=== PATIENT | female | born 1950 | race Caucasian/White ===

== ENCOUNTER 2020-05-05 15:44 | Outpatient (CLI) | payer MEDICARE, OTHER, SELFPAY ==
--- NOTE | ~2020-05-05 | XR_ITS ---
EXAMINATION: XR abdomen obstructive series DATE: 05/05/2020 16:29 INDICATION: Abdomen pain. TECHNIQUE: Supine and upright views of the abdomen. FINDINGS: No prior studies for comparison. The visualized lung parenchyma is normal.. There is a nonobstructive bowel gas pattern. Gas and stool are seen throughout the colon to the level of the rectum. There is no free air. There are cholecyst ectomy clips. IMPRESSION: 1. No acute abdominal abnormality. Reviewed, dictated and finalized at location B.
[2020-05-05 16:54] LABS: Basophils Absolute Auto 0.2 K/mm3 (0.0-0.1); Basophils Percent Auto 1.3 % (0.2-1.2); Eosinophils Absolute Auto 0.3 K/mm3 (0-0.3); Eosinophils Percent Auto 2.7 % (0-4.4); Hematocrit 46.1 % (37.0-47.0); Hemoglobin 15.3 g/dL (12.0-15.0); Immature Granulocyte Absolute 0.04 K/mm3 (0.00-0.031); Immature Granulocyte Percent A 0.4 % (0-0.5); Lymphocytes Absolute Auto 3.34 K/mm3 (0.9-3.2); Lymphocytes Percent Auto 29.4 % (18.3-44.2); Mean Corpuscular HGB Conc 33.2 g/dl (32-36); Mean Corpuscular Hemoglobin 29.8 pg (26-34); Mean Corpuscular Volume 89.7 fl (80-100); Mean Platelet Volume 9.3 fl (7.4-10.4); Monocytes Absolute Auto 0.8 K/mm3 (0.1-0.6); Monocytes Percent Auto 6.9 % (2.6-8.5); Neutrophils Absolute Auto 6.7 K/mm3 (1.3-6.7); Neutrophils Percent Auto 59.3 % (45.5-73.1); Platelet Count Result 282 k/mm3 (150-375); Red Blood Count 5.14 M/mm3 (4.2-5.4); Red Cell Distribution Width 13.5 % (11.5-14.5); White Blood Count 11.4 K/mm3 (4.5-10.0)
[2020-05-05 17:06] LABS: Alanine Aminotransferase 27 U/L (4-35); Albumin Level 4.7 g/dL (3.5-5.1); Alkaline Phosphatase 55 U/L (38-126); Anion Gap 8 mmol/L (8-16); Aspartate Amino Transferase 28 U/L (14-36); Bilirubin,Total 0.4 mg/dL (0.2-1.3); Blood Urea Nitrogen 14 mg/dL (7-17); Calcium 9.6 mg/dL (8.4-10.2); Carbon Dioxide 29 mmol/L (22-30); Chloride 103 mmol/L (98-107); Cholesterol 137 mg/dL (0-200); Estimated Glomerular Filt Rate > 60; Glucose 105 mg/dL (65-105); HDL Direct 49 mg/dL; Potassium 4.3 mmol/L (3.4-5.0); Sodium 140 mmol/L (137-145); Triglycerides 172 mg/dL (<150)
[2020-05-05 17:17] LABS: LDL Cholesterol Direct 53 mg/dL
== END 2020-05-05 15:45 | disposition home or self-care (01) ==
DX: R10.84 Generalized abdominal pain (principal); E78.2 Mixed hyperlipidemia
CPT/HCPCS: 36415; 74019; 80053; 80061; 85025

== ENCOUNTER 2020-05-08 09:36 | Outpatient (CLI) | payer MEDICARE, OTHER, SELFPAY ==
--- NOTE | ~2020-05-08 | CT_ITS ---
EXAMINATION: CT lung screening DATE: 05/08/2020 10:02 INDICATION: History of tobacco use TECHNIQUE: Computed tomography (CT) of the chest was performed without intravenous contrast. The dose -length product was 99.00 mGy-cm. Automated exposure control and iterative reconstruction technique w ere employed. COMPARISON: CT dated 02/05/2011 FINDINGS: No significant pleural or pericardial effusion. Heart size is normal. There is atherosclero sis of the aorta and coronary arteries. No thoracic lymphadenopathy. In the upper abdomen is unremark able. There are cholecystectomy clips. There is a 4 mm right upper lobe nodule, image 38. There are l eft lower lobe nodules, largest measuring 5 mm. Mild thoracic spondylosis. IMPRESSION: 1. Lung-RADS category 2: Benign appearance or behavior. Continue annual screening with noncontrast lo w-dose chest CT in 12 months. Reviewed, dictated and finalized at location B. IMPRESSION: 1. Lung-RADS category 2: Benign appearance or behavior. Continue annual screeni ng with noncontrast low-dose chest CT in 12 months.
== END 2020-05-08 09:37 | disposition home or self-care (01) ==
DX: Z87.891 Personal history of nicotine dependence (principal)
CPT/HCPCS: G0297

== ENCOUNTER 2020-05-30 10:47 | Outpatient (CLI) | payer MEDICARE, OTHER, SELFPAY ==
--- NOTE | ~2020-05-30 | XR_ITS ---
XR lumbar spine 2-3V DATE: 05/30/2020 11:19 INDICATION: Strain] of back 10 days ago. Back pain. TECHNIQUE: AP, lateral, coned lateral lumbosacral views COMPARISON: None FINDINGS: Diffuse osteopenia. There is degenerative spurring of the lower thoracic spine. No fracture or bone destruction or spondylolisthesis. There is mild loss of interspace height at L1-2 and L4-5, with minimal spurring at L1 to. Remaining l umbar interspaces are well preserved. There is degenerative change at the apophyseal joints particula rly in the lower lumbar and lumbosacral area but no spondylolisthesis. The sacroiliac joints and pubic symphysis are intact. There is extensive calcification of the abdominal aorta and common iliac arteries without apparent an eurysm. IMPRESSION: Moderate osteopenia Degenerative changes including mild degenerative disc disease at L1-2 and L4 5 and degenerative mcconnell e at the apophyseal joints Reviewed, dictated and finalized at location A. IMPRESSION: Moderate osteopenia Degenerative changes including mild degenerative disc disease at L1-2 and L4 5 and degenerative change at the apophyseal joints
== END 2020-05-30 10:48 | disposition home or self-care (01) ==
LOC: ANHIMG 10:58
DX: M51.36 Other intervertebral disc degeneration, lumbar region (principal); M85.88 Other specified disorders of bone density and structure, other site
CPT/HCPCS: 72100

== ENCOUNTER 2020-06-04 09:24 | Outpatient (CLI) | payer MEDICARE, OTHER, SELFPAY ==
--- NOTE | ~2020-06-04 | MM_ITS ---
EXAMINATION: MM screening radha BI w lien HISTORY: Screening TECHNIQUE: Craniocaudal and mediolateral oblique 3-D tomosynthesis images were obtained and synthetic 2-D images were generated. CAD analysis was submitted and interpreted. COMPARISON: Comparison to multiple prior studies sequentially, with oldest reviewed study dated 03/04/2016. BREAST PARENCHYMAL COMPOSITION: There are scattered areas of fibroglandular density. FINDINGS: Bilateral breast calcifications are stable. There is no evidence of suspicious mass, calcif ication, or architectural distortion to suggest malignancy in either breast. There has been no suspic ious interval change. IMPRESSION: 1. No mammographic evidence of malignancy. 2. Recommend routine screening mammography in one year. BI-RADS Category 2: Benign finding(s). Reviewed, dictated and finalized at location A.
== END 2020-06-04 09:25 | disposition home or self-care (01) ==
LOC: ANHIMG 09:27
DX: Z12.31 Encounter for screening mammogram for malignant neoplasm of breast (principal)
CPT/HCPCS: 77063; 77067

== ENCOUNTER 2020-06-06 11:49 | Outpatient (CLI) | payer MEDICARE, OTHER, SELFPAY ==
--- NOTE | ~2020-06-06 | CT_ITS ---
EXAMINATION: CT abdomen pelvis w con INDICATION: Abdominal hernia TECHNIQUE: Computed tomographic images of the abdomen and pelvis were obtained after the administrati on of 100 cc of Omnipaque 350 intravenous contrast. The dose-length product (DLP) was 609.31 mGy-cm. Automated exposure control and iterative reconstruction technique were employed. COMPARISON: 01/13/2019 FINDINGS: Minimal dependent atelectasis is present in the lung bases. Cardiomegaly is noted. A stable 4 mm nodule of the left lower lobe is consistent with old granulomatous disease. The gallbladder is surgically absent. Cysts of the liver measure up to 5 mm. The spleen, pancreas, and adrenal glands ar e normal. The kidneys are unremarkable. There is calcified atherosclerosis of the aorta and many of t he other arteries. No pathologically enlarged abdominal or pelvic lymph nodes are identified. There i s no free intraperitoneal gas or evidence of bowel obstruction. The appendix is normal. Colonic diver ticulosis is present without evidence of diverticulitis. There is a small fat-containing umbilical he rnia. There are small fat-containing inguinal hernias. No additional abdominal wall hernia is identif ied. There is mild lumbar spondylosis. An L5 superior endplate deformity is new since the comparison examination. IMPRESSION: 1. Fat-containing umbilical and inguinal hernias without significant change. No sizable ventral herni a identified. 2. Age-indeterminate L5 superior endplate fracture, new since the comparison examination. Reviewed, dictated and finalized at location A. IMPRESSION: 1. Fat-containing umbilical and inguinal hernias without significant change. No sizable ventral hernia identified. 2. Age-indeterminate L5 superior endplate fracture, new since the comparison ex amination.
[2020-06-06 12:13] LABS: Estimated Glomerular Filt Rate 55
== END 2020-06-06 11:50 | disposition home or self-care (01) ==
DX: K40.90 Unilateral inguinal hernia, without obstruction or gangrene, not specified as recurrent (principal); K42.9 Umbilical hernia without obstruction or gangrene
CPT/HCPCS: 74177; Q9967

== ENCOUNTER 2020-10-24 14:35 | Outpatient (CLI) | payer MEDICARE, OTHER, SELFPAY ==
--- NOTE | ~2020-10-24 | CT_ITS ---
EXAMINATION: CT soft tissue neck w con EXAM DATE: 10/24/2020 15:23 INDICATION: Submandibular lymphadenopathy, chronic periodental disease. TECHNIQUE: Spiral CT of the neck was performed following intravenous injection of 75 mL Omnipaque 350 . Axial, coronal and sagittal images were reviewed. The dose-length product (DLP) for this examinat ion was 556.00 mGy-cm. The exposure was tailored according to patient size (auto mA exposure control ), and iterative reconstruction (ASIR) was used as additional dose reduction technique. There is no prior study for comparison. FINDINGS: There is an externally placed marker right anterior aspect of the neck, submandibular regio n. The subcutaneous fat deep to this is normal. Scattered small thyroid nodules, thyroid overall nor mal in size. There is moderate left carotid bulb arterial sclerosis without significant stenosis. Tor tuosity to both internal carotid arteries. The submandibular and parotid glands are symmetric. The re is no cervical lymphadenopathy. There are no masses identified. The superior mediastinum is un remarkable. The airway is unremarkable. Parapharyngeal and pre-glottic fat planes are preserved. Patient has had bilateral ocular lens surgery. Visualized sinuses and mastoid air cells are well aerated. Lung apices are clear. There is cervical spondylosis. IMPRESSION: 1. No cervical lymphadenopathy. 2. Small thyroid nodules. Reviewed, dictated and finalized at location A. [facility]
[2020-10-24 15:10] LABS: Alanine Aminotransferase 24 U/L (4-35); Albumin Level 4.6 g/dL (3.5-5.1); Alkaline Phosphatase 53 U/L (38-126); Anion Gap 8 mmol/L (8-16); Aspartate Amino Transferase 25 U/L (14-36); Bilirubin,Total 0.5 mg/dL (0.2-1.3); Blood Urea Nitrogen 14 mg/dL (7-17); Calcium 9.2 mg/dL (8.4-10.2); Carbon Dioxide 28 mmol/L (22-30); Chloride 104 mmol/L (98-107); Estimated Glomerular Filt Rate > 60; Glucose 92 mg/dL (65-105); Potassium 4.1 mmol/L (3.4-5.0); Sodium 140 mmol/L (137-145)
[2020-10-24 15:12] LABS: Estimated Glomerular Filt Rate > 60
== END 2020-10-24 14:36 | disposition home or self-care (01) ==
LOC: ANHIMG 14:36
DX: R59.0 Localized enlarged lymph nodes (principal); K05.6 Periodontal disease, unspecified; E04.2 Nontoxic multinodular goiter
CPT/HCPCS: 36415; 70491; 80053; Q9967

== ENCOUNTER 2021-05-04 13:26 | Outpatient (CLI) | payer MEDICARE, OTHER, SELFPAY ==
--- NOTE | ~2021-05-04 | CT_ITS ---
Patient Erma Zayas EXAMINATION: CT lung screening DATE: 05/04/2021 13:57 INDICATION: Personal history of nicotine dependence, prior smoker with 40 pack year history TECHNIQUE: Computed tomography (CT) of the chest was performed without intravenous contrast. The dose -length product (DLP) was 76.11 mGy-cm. Automated exposure control and iterative reconstruction techn Prepairue were employed. COMPARISON: 05/08/2020, 01/13/2019, 11/05/2018, 06/08/2011 FINDINGS: A 6 mm nodule left lower lobe on image 93 previously measured 5 mm. There is a stable 4 mm nodule of the left lower lobe on image 92. There is stable 5 mm nodule of the left lower lobe on imag e 80. There is mild emphysema. The lungs are free of focal airspace opacities. There is mild dependen t atelectasis. No pleural effusion or pneumothorax is identified. No pathologically enlarged thoracic lymph nodes are identified. The heart size is normal. Calcified coronary artery atherosclerosis is n oted. The gallbladder is surgically absent. There is moderate thoracic spondylosis. IMPRESSION: 1. Lung-RADS category 4A: Findings for which additional diagnostic testing and/or tissue sampling is recommended. Recommend three month low-dose CT to evaluate the 6 mm left lower lobe nodule. Reviewed, dictated and finalized at location A. IMPRESSION: 1. Lung-RADS category 4A: Findings for which additional diagnostic testing and/ or tissue sampling is recommended. Recommend three month low-dose CT to evaluat e the 6 mm left lower lobe nodule.
== END 2021-05-04 13:27 | disposition home or self-care (01) ==
LOC: ANHIMG 13:28
PROVIDERS: PCP Nurse Practitioner; Visit Provider Nurse Practitioner
DX: R91.1 Solitary pulmonary nodule (principal); F17.210 Nicotine dependence, cigarettes, uncomplicated
CPT/HCPCS: 71271

== ENCOUNTER 2021-07-07 08:59 | Outpatient (CLI) | payer MEDICARE, OTHER, SELFPAY ==
--- NOTE | ~2021-07-07 | DEXA_ITS ---
Bone Density Report Name: Erma Zayas Age: 70 Sex: Female Ethnicity: White Date of : 1950 Indication: osteopenia; height loss; prior fracture; cancer; hysterectomy; postmenopausal Referring Provider: Ze, Melissa Nevarez Study: Bone densitometry was performed. Exam Date: July 07, 2021 Accession number: [id number] Bone Density: Region BMD T-score Z-score Classification AP Spine (L2, L3, L4) 0.900 -1.6 0.7 Osteopenia Femoral Neck (Left) 0.633 -1.9 0.0 Osteopenia Total Hip (Left) 0.765 -1.4 0.2 Osteopenia Total Hip Bilateral Avg 0.777 -1.4 0.3 Osteopenia Femoral Neck (Right) 0.681 -1.5 0.4 Osteopenia Total Hip (Right) 0.789 -1.3 0.4 Osteopenia World Health Organization criteria for BMD impression classify patients as: Normal (T-score at or above -1.0), Osteopenia (T-score between -1.0 and -2.5), or Osteoporosis (T-score at or below -2.5). 10-year Fracture Risk(1): Major Osteoporotic Fracture 18% Hip Fracture 3.5% Reported Risk Factors: [place] (), Neck BMD=0.633, BMI=29.1, previous fracture (1) FRAX(R) Version 3.08. Fracture probability calculated for an untreated patient. Fracture probability may be lower if the patient has received treatment. Previous Exams: Region Exam Age BMD T-score BMD Change BMD Change Date g/cm2 vs Baseline vs Previous AP Spine(L2, L3, L4) 07/07/2021 70 0.900 -1.6 -0.093(-9.3%)# -0.047(-5.0%)* 09/17/2016 66 0.947 -1.2 -0.045(-4.5%)# -0.098(-9.3%)# 11/13/2009 59 1.045 -0.3 0.053(5.3%)* -0.028(-2.6%)* 09/07/2007 57 1.073 -0.1 0.081(8.1%)* 0.081(8.1%)* 10/21/2003 53 0.993 -0.8 Total Hip(Left) 07/07/2021 70 0.765 -1.4 0.000(0.0%)# -0.065(-7.9%)* 12/19/2018 68 0.831 -0.9 0.065(8.5%)# 0.000(0.1%) 09/17/2016 66 0.830 -0.9 0.065(8.5%)# 0.014(1.7%)# 11/13/2009 59 0.816 -1.0 0.051(6.6%)* 0.000(0.0%) 09/07/2007 57 0.816 -1.0 0.051(6.6%)* 0.051(6.6%)* 10/21/2003 53 0.765 -1.4 Total Hip(Right) 07/07/2021 70 0.789 -1.3 0.014(1.8%)# -0.061(-7.2%)* 12/19/2018 68 0.849 -0.8 0.075(9.7%)# -0.018(-2.1%) 09/17/2016 66 0.867 -0.6 0.093(12.0%)# 0.014(1.7%)# 11/13/2009 59 0.853 -0.7 0.079(10.2%)* 0.013(1.6%) 09/07/2007 57 0.840 -0.8 0.066(8.5%)* 0.066(8.5%)* 10/21/2003 53 0.774 -1.4 *Denotes significance at 95% confidence level, LSC for AP Spine = 0.022 g/cm2, LSC for Total Hip = 0.027 g/cm2 Clinical Information Provided by Patient:
== END 2021-07-07 09:00 | disposition home or self-care (01) ==
LOC: ANHIMG 09:02
PROVIDERS: PCP Nurse Practitioner; Visit Provider Nurse Practitioner
DX: Z78.0 Asymptomatic menopausal state (principal); M85.88 Other specified disorders of bone density and structure, other site; M85.852 Other specified disorders of bone density and structure, left thigh; M85.851 Other specified disorders of bone density and structure, right thigh
CPT/HCPCS: 77080

== ENCOUNTER 2021-10-21 14:53 | Outpatient (CLI) | payer MEDICARE, OTHER, SELFPAY ==
--- NOTE | ~2021-10-21 | XR_ITS ---
XR knee LT 3V, XR tibia fibula LT 2V 10/21/2021 15:57 (accession [id number]), 10/21/2021 15:56 (accession [id number]) Indication: Left knee and leg pain Procedure: 3 views left knee and 2 views left tibia/fibula Comparison: No prior studies for comparison. Findings: No fracture, subluxation or dislocation. There is mild osteoarthritis of the left knee. No significant soft tissue abnormality. No significant joint effusion. Impression: 1: Mild osteoarthritis of the left knee. Reviewed, dictated and finalized at location A. ROOM PERSONNEL Impression: 1: Mild osteoarthritis of the left knee. Impression: 1: Mild osteoarthritis of the left knee.
--- NOTE | ~2021-10-21 | XR_ITS ---
XR knee RT 3V, XR tibia fibula RT 2V 10/21/2021 15:55 Indication: Right knee and leg pain Procedure: 3 views right knee and 2 views right tibia/fibula Comparison: No prior studies for comparison. Findings: No fracture, subluxation or dislocation. No significant joint effusion. No significant soft tissue abnormality. No foreign bodies. Mild osteoarthritis of the right knee. Impression: 1: Mild osteoarthritis of the right knee. Reviewed, dictated and finalized at location A. ARCH COORDINATOR Impression: 1: Mild osteoarthritis of the right knee. Impression: 1: Mild osteoarthritis of the right knee.
--- NOTE | ~2021-10-21 | US_ITS ---
US soft tissue LE LT 10/21/2021 15:24 Indication: Localized swelling of the left lower extremity below the knee Procedure: High-resolution Limited ultrasound of the left lower extremity in the area of palpable con cern Comparison: No prior studies for comparison. Findings: There is echogenic heterogeneous soft tissue in the area of clinical concern, although no d iscrete fluid collection or mass is identified. There is mild interstitial edema. Impression: 1: No suspicious discrete masses or fluid collections in the area of palpable concern. No drainable f luid collections. Reviewed, dictated and finalized at location A. KNITTER Impression: 1: No suspicious discrete masses or fluid collections in the area of palpable c oncern. No drainable fluid collections.
== END 2021-10-21 14:54 | disposition home or self-care (01) ==
LOC: ANHIMG 14:58
PROVIDERS: PCP Nurse Practitioner; Visit Provider Nurse Practitioner
DX: M17.0 Bilateral primary osteoarthritis of knee (principal)
CPT/HCPCS: 73562; 73590; 76882

== ENCOUNTER 2022-06-12 17:06 | Emergency (ER) | payer MEDICARE, OTHER, SELFPAY ==
--- NOTE | ~2022-06-12 | CT_ITS ---
EXAMINATION: CT abdomen pelvis w con DATE: 06/12/2022 18:17 INDICATION: Lower abdominal pain and constipation. TECHNIQUE: Computed tomography (CT) of the abdomen and pelvis was performed with 100 mL Omnipaque-350 intravenous contrast. Automated exposure control and iterative reconstruction technique were employe d. The dose-length product was 770.80 mGy-cm. COMPARISON: 06/06/2020 FINDINGS: Mild bibasilar atelectasis. Heart size is normal. Atherosclerotic coronary artery calcific lesions. N o pericardial or pleural effusion. Small sliding-type hiatal hernia. Cholecystectomy clips the gallbl adder fossa. Liver, spleen, pancreas, bilateral adrenal glands and right kidney are normal. Left para pelvic cysts measuring up to 1.8 cm. Multiple diverticula predominantly along the sigmoid colon. Ther e is wall thickening, inflammatory stranding surrounding the mid sigmoid colon and trace amount of li chata reactive ascites in the deep pelvis consistent with diverticulitis. No abscess or free intraperi toneal gas. Small bowel and appendix are normal. Bladder is normal. The uterus is not identified and has likely been surgically resected. No pathologically enlarged abdominal or pelvic lymphadenopathy. There is calcified atherosclerosis of the aorta and many of the other arteries. There are bridging os teophytes at multiple levels in the spine, consistent with diffuse idiopathic skeletal hyperostosis ( DISH). Prominent Schmorl's node along the superior endplate of L5. L4 and T9 hemangiomas. IMPRESSION: 1. Radiographically uncomplicated sigmoid diverticulitis. Reviewed, dictated and finalized at location A.
[2022-06-12 17:07] VITALS: BP 133/67; PULSE 80; RESP 18; TEMP 36.6; O2SAT 97
--- NOTE | 2022-06-12 17:22 | ED.ABDPAIN ---
HPI - Abdominal Pain General Chief Complaint: Abdominal Pain <JOSE RAMON Faustin Last Filed: 06/12/22 20:10> Stated Complaint: ABD Pain <JOSE RAMON Faustin Last Filed: 06/12/22 20:10> Time Seen by Provider: 06/12/22 17:12 <JOSE RAMON Faustin Last Filed: 06/12/22 20:10> Source: patient <JOSE RAMON Faustin Last Filed: 06/12/22 20:10> Mode of arrival: ambulatory <JOSE RAMON Faustin Last Filed: 06/12/22 20:10> Limitations: no limitations <JOSE RAMON Faustin Last Filed: 06/12/22 20:10> History of Present Illness HPI narrative: Patient is a 71 y/o female who presents to the ED with c/o ABD pain. Patient reports having intermittent lower abdominal pain for the past several days. Pain became worse over the past 2 days, which prompted her presentation. Patient has not tried anything for her pain. She reports she was diagnosed with diverticulitis via blood work @ [facility] 2 weeks ago and started on Cipro. She did not have imaging. She states her symptoms improved initially. She does have a previous Hx of diverticulitis. Last colonoscopy 2019 and normal. Patient also reports recent feelings of constipation. She had a small BM yesterday and this afternoon after taking MiraLAX. Denies any nausea, vomiting, fevers, chills, dysuria, hematuria, rectal bleeding. <JOSE RAMON Faustin Last Filed: 06/12/22 20:10> Related Data Home Medications: Home Medications Medication Instructions Recorded Confirmed cholecalciferol (vitamin D3) 100 4,000 unit PO DAILY 09/13/19 mcg (4,000 unit) capsule lidocaine HCl 2 % mucosal solution 1 applic mucous membrane TID 09/13/19 (Lidocaine Viscous) nifedipine 30 mg tablet,extended 30 mg PO DAILY 09/13/19 release pantoprazole 40 mg granules 40 mg PO DAILY 09/13/19 delayed-release for susp in packet (Protonix) ranitidine HCl 150 mg tablet 150 mg PO DAILY 09/13/19 (Zantac) simvastatin 10 mg tablet 10 mg PO DAILY 09/13/19 <Aminta Al PA-C - Last Filed: 06/12/22 20:10> Allergies/Adverse Reactions: Allergies Allergy/AdvReac Type Severity Reaction Status Date / Time Fbhapgr-LSU-[id number] Reductase Allergy Mild Verified 09/15/11 11:59 Inhibitor [Btxdjpn-Zrf-Aul Reductase Inhibitor] bacitracin Allergy Unknown Verified 01/27/16 09:42 latex Allergy Unknown Verified 05/19/10 16:53 naproxen Allergy Unknown Unknown Verified 01/27/16 09:42 neomycin Allergy Unknown RASH Verified 03/13/19 09:58 Penicillins Allergy Unknown Verified 09/04/15 10:42 polymyxin B Allergy Unknown Verified 01/27/16 09:42 <Aminta Al PA-C - Last Filed: 06/12/22 20:10> Review of Systems Review of Systems: CONSTITUTIONAL: Denies fever, chills, or sweats. CARDIOVASCULAR: Denies chest pain. RESPIRATORY: Denies dyspnea. GASTROINTESTINAL: Reports lower abdominal pain, constipation. Denies rectal bleeding, nausea, vomiting, or diarrhea. GENITOURINARY: Denies dysuria or hematuria. <Aminta Al PA-C - Last Filed: 06/12/22 20:10> All systems reviewed & are unremarkable except as noted in HPI and below <Aminta Al PA-C - Last Filed: 06/12/22 20:10> [facility] Past Medical History Medical History: Medical History (Updated 06/13/22 @ 00:00 by Abiel Bonilla) Anxiety Diabetes mellitus GERD (gastroesophageal reflux disease) HLD (hyperlipidemia) Hypertension Nonalcoholic fatty liver disease <Aminta Al PA-C - Last Filed: 06/12/22 20:10> Surgical History Surgical History: Surgical History History of colonoscopy History of hysterectomy History of vulvectomy <Aminta Al PA-C - Last Filed: 06/12/22 20:10> Family History Family History: Family History Sibling Family history of malignant neoplasm of b
[2022-06-12 17:45] LABS: Basophils Absolute Auto 0.2 K/mm3 (0.0-0.1); Eosinophils Absolute Auto 0.2 K/mm3 (0-0.3); Eosinophils Percent Auto 1.3 % (0-4.4); Hematocrit 48.2 % (37.0-47.0); Hemoglobin 15.9 g/dL (12.0-15.0); Immature Granulocyte Absolute 0.06 K/mm3 (0.00-0.031); Immature Granulocyte Percent A 0.4 % (0-0.5); Lymphocytes Absolute Auto 2.78 K/mm3 (0.9-3.2); Lymphocytes Percent Auto 17.1 % (18.3-44.2); Mean Corpuscular Hemoglobin 29.7 pg (26-34); Mean Corpuscular Volume 89.9 fl (80-100); Mean Platelet Volume 9.3 fl (7.4-10.4); Monocytes Absolute Auto 1.6 K/mm3 (0.1-0.6); Monocytes Percent Auto 9.7 % (2.6-8.5); Neutrophils Absolute Auto 11.5 K/mm3 (1.3-6.7); Neutrophils Percent Auto 70.5 % (45.5-73.1); Platelet Count Result 298 k/mm3 (150-375); Red Blood Count 5.36 M/mm3 (4.2-5.4); Red Cell Distribution Width 13.2 % (11.5-14.5); White Blood Count 16.3 K/mm3 (4.5-10.0)
[2022-06-12 17:52] LABS: Alanine Aminotransferase 38 U/L (6-35); Albumin Level 4.7 g/dL (3.5-5.1); Alkaline Phosphatase 63 U/L (38-126); Anion Gap 15 mmol/L (8-16); Aspartate Amino Transferase 30 U/L (14-36); Bilirubin,Total 0.7 mg/dL (0.2-1.3); Blood Urea Nitrogen 10 mg/dL (7-17); Calcium 8.8 mg/dL (8.4-10.2); Carbon Dioxide 30 mmol/L (22-30); Chloride 96 mmol/L (98-107); Estimated CRCL calculation 59 ml/min; Estimated Glomerular Filt Rate > 60; Glucose 111 mg/dL (65-110); Lipase 56 U/L (23-300); Potassium 3.2 mmol/L (3.4-5.0); Sodium 141 mmol/L (137-145)
[2022-06-12 18:08] LABS: Add Urine Microscopic? YES; Appearance Urine Clear (Clear); Bilirubin Urine Negative (Negative); Blood Urine 2+ (Negative); Color Urine Yellow (Yellow); Glucose Urine UA Negative (Negative); Ketones Urine Negative (Negative); Leukocyte Esterase Ur Negative LEU/UL (Negative); Mucus Urine Rare /lpf; Nitrate Urine Negative (Negative); Protein Urine Negative (Negative); RBC Urine 0-2 /hpf (0-2); Specific Grav Ur 1.021 (1.001-1.035); Squamous Epithelial Cell Urine Rare /hpf (Few); Urobilinogen Urine Negative mg/dL (<2.0); WBC Urine 0-3 /hpf
[2022-06-12 18:22] LABS: Lactic Acid Reflex 1.6 mmol/L (0.7-2.0)
[2022-06-12] MEDS: POTASSIUM CHLORIDE 20 MEQ TABLET 40 MEQ PO (18:35)
[2022-06-12] MEDS: SODIUM CHLORIDE 0.9% IV 1,000 ML 999 ML IV CONT (18:36)
[2022-06-12] MEDS: ONDANSETRON INJ 4 MG/2 ML VIAL IV PUSH (18:36)
[2022-06-12] MEDS: MORPHINE SULFATE (*CRX) 4 MG/ML INJ IV PUSH (20:00)
[2022-06-12 20:01] VITALS: BP 128/56; PULSE 80; RESP 16; O2SAT 93
[2022-06-12 20:27] VITALS: BP 144/58; PULSE 78; RESP 16; O2SAT 99
== END 2022-06-12 20:35 | disposition home or self-care (01) ==
PROVIDERS: Physician Assistant; Emergency Provider Emergency Medicine; PCP Nurse Practitioner
DX: K57.32 Diverticulitis of large intestine without perforation or abscess without bleeding (principal); E11.9 Type 2 diabetes mellitus without complications; E78.5 Hyperlipidemia, unspecified; I10 Essential (primary) hypertension; K21.9 Gastro-esophageal reflux disease without esophagitis; F41.9 Anxiety disorder, unspecified; K76.0 Fatty (change of) liver, not elsewhere classified; Z90.710 Acquired absence of both cervix and uterus; Z79.84 Long term (current) use of oral hypoglycemic drugs
CPT/HCPCS: 36415; 74177; 80053; 81001; 83605; 83690; 85025; 96361; 96365; 96375; 99284; A9270; J0131; J2270; J2405; J7030; Q9967

== ENCOUNTER 2023-01-19 09:35 | Outpatient (CLI) | payer MEDICARE, OTHER, SELFPAY ==
--- NOTE | ~2023-01-19 | CT_ITS ---
CT Scan of the Chest without Contrast: Clinical Indication: Lung cancer screening, smoking history Technique: Contiguous sections were acquired throughout the chest without intravenous contrast. Dose reduction technique was used on this scan by utilizing automated exposure control and iterative recon struction technique. The dose-length product (DLP) was 77.27 mGy-cm. COMPARISON: 05/04/2021, 05/08/2020 Findings: There is no evidence of any significant mediastinal, hilar or axillary lymphadenopathy. There are ath erosclerotic changes of aorta and coronary arteries. There is no evidence of pleural or pericardial effusion. 4 mm pleural-based nodule at the left lower lobe is stable to mildly decreased from prior exam (axial image 81). Additional 2 mm left lower lobe pulmonary nodule is also stable to minimally decreased (a xial image 80). Images through the upper abdomen reveal no abnormalities. Impression: Lung RADS 2: Benign appearance. 12 month follow-up screening CT advised. Reviewed, dictated and finalized at location . Impression: Lung RADS 2: Benign appearance. 12 month follow-up screening CT advised.
== END 2023-01-19 09:36 | disposition home or self-care (01) ==
PROVIDERS: PCP Nurse Practitioner; Visit Provider Nurse Practitioner
DX: Z12.2 Encounter for screening for malignant neoplasm of respiratory organs (principal); Z87.891 Personal history of nicotine dependence
CPT/HCPCS: 71271

== ENCOUNTER 2023-01-24 09:15 | Outpatient (RCR) | payer MEDICARE, OTHER, SELFPAY ==
[2023-01-07 14:40] VITALS: BP_SYST 145
--- NOTE | 2023-01-07 15:34 | PTOPEVAL1 ---
Assessment and note entered by Marcelle Huerta, PT Evaluation Information Assessment Status Evaluation Diagnosis chronic L shoulder pain Onset about 2 months ago Subjective Information no injury to shoulder, gradual increase in pain; had xray-did not show anything; is R handed, is able to do everything around the house; having problems with sleeping and waking up due to pain; Reported Pain Level Pain Score Self Report Additional Pain Score Comments pain range of 2-4/10 in anterior L shoulder; annoying, constant pain; increase with lying on L side, awaken from sleep 3-4 x/night due to shoulder pain decrease pain rest with arm at her side; taking meloxicam for heel spurs--did not help shoulder; tramadol did not help shoulder pain; Assessment PT Clinical Summary Erma has the diagnosis of L shoulder pain. She does not report any trauma or injury to her shoulder, but has been doing alot of quilting and painting. Pain is disrupting her sleep and she cannot lie on her L side. With the evaluation, she has decreased L shoulder flexion and abduction active ROM, with painful arcs of motion, poor standing position with rounded shoulders and tenderness over biceps tendon insertion/groove with tightness over upper traps. Skilled PT services are indicated for modalities to decrease pain of shoulder, therapeutic exercises to improve position and ROM of shoulder and education for home exercises and pain control. Plan of Care Interventions Electrical Stimulation,Hot Pack/Cold Pack,Manual Therapy,Neuro Re-education,Patient/Caregiver Education,Therapeutic Activities,Therapeutic Exercise,Ultrasound,Other Other Interventions taping, [facility] PT Services Indicated Yes Treatment Frequency and 2x/wk for 4 weeks Duration These treatments will address the objective and functional deficits as defined above. The patient will be advanced safely and appropriately in order for the patient to progress towards his/her prior level of function. Additional exercises will be introduced and as well as a comprehensive home exercise program upon discharge, if needed, ?to ensure carryover of functional gains achieved in the clinic. This treatment plan has been reviewed and agreement upon by the patient.
--- NOTE | 2023-01-27 13:11 | PTOPDC ---
Assessment and note entered by Marcelle Huerta, PT Evaluation Information Assessment Status Discharge - Pt Not Present Diagnosis chronic L shoulder pain Onset about 2 months ago Assessment PT Clinical Summary Erma has received 5 PT sessions, then she reported she was doing well and did not need anymore therapy; therefore, she will be discharged at this time. The goals were not addressed. Plan of Care PT Services Indicated no
== END 2023-01-28 09:19 | disposition home or self-care (01) ==
LOC: ANHPT 09:15
PROVIDERS: PCP Nurse Practitioner; Visit Provider Nurse Practitioner
DX: M25.512 Pain in left shoulder (principal); G89.29 Other chronic pain; Z87.891 Personal history of nicotine dependence
CPT/HCPCS: 71271; 97110; 97140; 97161

== ENCOUNTER 2023-03-04 08:55 | Outpatient (CLI) | payer MEDICARE, OTHER, SELFPAY ==
--- NOTE | ~2023-03-04 | MM_ITS ---
EXAMINATION: MM screening radha BI w lien HISTORY: Screening mammogram TECHNIQUE: Craniocaudal and mediolateral oblique 3-D tomosynthesis images were obtained and synthetic 2-D images were generated. CAD analysis was submitted and interpreted. COMPARISON: 06/04/2020, 05/22/2019 screening mammogram examinations BREAST PARENCHYMAL COMPOSITION: There are scattered areas of fibroglandular density. FINDINGS: Scattered bilateral benign calcifications. There is no evidence of suspicious mass, calcifi cation, or architectural distortion to suggest malignancy in either breast. There has been no suspici ous interval change. IMPRESSION: 1. No mammographic evidence of malignancy. 2. Recommend routine screening mammography in one year. BI-RADS Category 2: Benign finding(s). Reviewed, dictated and finalized at location A.
== END 2023-03-04 08:56 | disposition home or self-care (01) ==
LOC: ANHIMG 08:58
PROVIDERS: PCP Nurse Practitioner; Visit Provider Nurse Practitioner
DX: Z12.31 Encounter for screening mammogram for malignant neoplasm of breast (principal)
CPT/HCPCS: 77063; 77067

== ENCOUNTER 2024-09-12 14:07 | Emergency (ER) | payer MEDICARE, OTHER, SELFPAY ==
--- NOTE | ~2024-09-12 | CT_ITS ---
EXAMINATION: CT pelvis wo con DATE: 09/12/2024 15:43 INDICATION: Pelvic pain TECHNIQUE: High resolution computed tomography (CT) of the pelvis was performed without intravenous c ontrast. Additional sagittal and coronal reconstructions were performed. Automated exposure control a nd iterative reconstruction technique were employed. The dose-length product was 664.94 mGy-cm. COMPARISON: CT dated 06/12/2022 FINDINGS: Bone alignment is normal. No acute fracture. Stable appearance of a chronic and L5 superior endplate compression fracture. Mild lumbar spondylosis. Mild osteoarthritis at the bilateral hip and sacroilia c joints. No hip joint effusions or other abnormal fluid collections. Normal appendix. There is moder ate diverticulosis along the sigmoid and visualized descending colon without adjacent inflammatory ch fabiana to suggest diverticulitis. The uterus is not identified and has likely been surgically resected . No pathologically enlarged pelvic or inguinal lymphadenopathy. IMPRESSION: 1. Stable appearance of a chronic L5 superior endplate compression fracture. No acute osseous abnorma lity. Reviewed, dictated and finalized at location A. ECT DEVELOPMENT MANAGER IMPRESSION: 1. Stable appearance of a chronic L5 superior endplate compression fracture. No acute osseous abnormality.
--- NOTE | ~2024-09-12 | CT_ITS ---
EXAMINATION: CT lumbar spine wo con DATE: 09/12/2024 15:42 INDICATION: Low back pain. TECHNIQUE: Computed tomography (CT) of the lumbar spine was performed without intravenous contrast. A utomated exposure control and iterative reconstruction technique were employed. The dose-length produ ct was 688.61 mGy-cm. COMPARISON: Lumbar spine radiographs 05/30/2020 FINDINGS: There are changes of cholecystectomy. Alignment is normal. There is a burst fracture of inf erior plate of L2 with 1/5 loss of height and retropulsion of bone 3 mm into central spinal canal. Th ere is a compression fracture of L5 with 2/5 loss of height centrally. There is a hemangioma in L4 ve rtebral body. There is mildly decreased disc height at L4-L5 and moderately decreased disc height at L5-S1. The following disc levels are specifically discussed: L1-L2: The disc is bulging. There is mild bilateral facet joint osteoarthritis. There is mild bilater al neural foraminal stenosis. There is mild central canal stenosis. L2-L3: The disc is bulging. There is moderate right and severe left facet joint osteoarthritis. There is mild bilateral neural foraminal stenosis. There is no central canal stenosis. L3-L4: The disc is bulging. There is severe bilateral facet joint osteoarthritis. There is mild bilat eral neural foraminal stenosis. There is mild central canal stenosis. L4-L5: The disc is bulging. There is severe bilateral facet joint osteoarthritis. There is mild bilat eral neural foraminal stenosis. There is mild central canal stenosis. L5-S1: The disc is bulging. There is severe bilateral facet joint osteoarthritis. There is mild bilat eral neural foraminal stenosis. There is mild central canal stenosis. IMPRESSION: 1. Acute versus subacute L2 burst fracture. 2. Moderate lumbar spondylosis. Reviewed, dictated and finalized at location B. GENCY ROOM DOCTOR
[2024-09-12 14:25] VITALS: BP 140/90; PULSE 80; RESP 16; TEMP 36.6; O2SAT 98
--- NOTE | 2024-09-12 15:22 | ED_ITS ---
HPI - General Adult General Chief complaint: Back Pain/Injury Stated complaint: LOWER BACK PAIN X 1 WEEK Time Seen by Provider: 09/12/24 14:31 History of Present Illness HPI narrative: 74-year-old female presents to the emergency department for evaluation of worsening lower back pain. Patient reports during the recent so some she was doing some shoveling and felt acute back pain. Patient did have follow-up with her primary care physician. Patient has been taking tramadol and Flexeril for pain control but is still having persistent symptoms. Patient did have some left lower back pain that did radiate down her left leg. Patient does not have this constantly but had episode yesterday. Patient denies any loss of bowel control or difficulty starting urination. Patient denies any current numbness or tingling down her legs. Patient did contact her primary care physician pradeep ferrelling her persistent pain and she was encouraged to present to the emergency department for recheck. Related Data Home Medications ?Medication ?Instructions ?Recorded ?Confirmed ?Last Taken ?Type cholecalciferol (vitamin D3) 100 4,000 unit PO DAILY 09/13/19 Unknown History mcg (4,000 unit) capsule lidocaine HCl 2 % mucosal solution 1 applic mucous membrane TID 09/13/19 Unknown History (Lidocaine Viscous) nifedipine 30 mg tablet,extended 30 mg PO DAILY 09/13/19 Unknown History release pantoprazole 40 mg granules 40 mg PO DAILY 09/13/19 Unknown History delayed-release for susp in packet (Protonix) ranitidine HCl 150 mg tablet 150 mg PO DAILY 09/13/19 Unknown History (Zantac) simvastatin 10 mg tablet 10 mg PO DAILY 09/13/19 Unknown History Allergies Allergy/AdvReac Type Severity Reaction Status Date / Time Rjjgdhz-LJI-YbF Reductase Allergy Mild Verified 09/15/11 11:59 Inhibitor (Uhecccz-Adq-Ayl Reductase Inhibitor) bacitracin Allergy Unknown Verified 01/27/16 09:42 latex Allergy Unknown Verified 05/19/10 16:53 naproxen Allergy Unknown Unknown Verified 01/27/16 09:42 neomycin Allergy Unknown RASH Verified 03/13/19 09:58 Penicillins Allergy Unknown Verified 09/04/15 10:42 polymyxin B Allergy Unknown Verified 01/27/16 09:42 Review of Systems Review of Systems: All systems reviewed & are unremarkable except as noted in HPI and below PMFSH Past Medical History Medical History (Updated 09/12/24 @ 16:25 by Jorje Mac MD) Anxiety GERD (gastroesophageal reflux disease) Nonalcoholic fatty liver disease Diabetes mellitus HLD (hyperlipidemia) Hypertension Surgical History Surgical History History of colonoscopy History of vulvectomy History of hysterectomy Family History Family History Sibling Family history of malignant neoplasm of brain Family history of malignant neoplasm of breast in first degree relative Family history of primary malignant neoplasm of liver Father Family history of transient ischemic attacks, Onset Age: 87 Patient's father is Family history of dementia, Onset Age: 87 Patient's father is in good health Mother Hypertension Patient's mother is in good health Social History Social History Smoking status: Former smoker Smoking end date: 08/22/16 Alcohol intake: never Exam Narrative: APPEARANCE: Well appearing, no pain, no distress, well-nourished. HEAD: normocephalic, atraumatic. EYES: PERRLA/EOMI, conjunctivae clear. NOSE: Normal no drainage EARS:TMS clear with good light reflex. THROAT: Pharynx clear, no exudate. NECK: Supple. No adenopathy, no masses. RESPIRATORY: Airway patent, respirations nonlabored. Clear to auscultation bilaterally, no rales, rhonchi, wheezing. CARDIOVASCULAR: Regular rate and rhythm without murmurs rubs or gallops. ABDOMINAL: Soft, nontender, nondistended, normal bowel sounds MUSCULOSKELETAL: Lower back tenderness to palpation NEURO: Alert. Cranial nerves II through XII intact. Grossly intact SKIN: Warm, dry. Normal Color Course Vital Signs Vital signs: Vital Signs Temperature 97.8 F 09/12/24 14:25 Pulse Rate 80 09/12/24 14:25 Respiratory Rate 16 09/12/24 14:25 Blood Pressure 140/90 09/12/24 14:25 Pulse Oximetry 98 09/12/24 14:25 Temperature 97.8 F 09/12/24 14:25 Pulse Rate 80 09/12/24 14:25 Respiratory Rate 16 09/12/24 14:25 Blood Pressure 140/90 09/12/24 14:25 Pulse Oximetry 98 09/12/24 14:25 Medical Decision Making MDM Narrative Medical decision making narrative: 74-year-old female present to the emergency department for evaluation for low back pain. Patient denies any loss of bowel or bladder control. Patient denies any numbness tingling or weakness of her lower extremities. Symptoms have been ongoing for a week. CT scan does show a compression fracture L2 and the chronic compression fracture of L5. Patient was treated with P[place] for pain control emergency department and does feel significantly improved. Patient was updated results of her workup and patient was comfortable with plan for discharge home. Patient will be provided outpatient follow-up with Neurosurgery. Patient was also advised the risk of gait instability and constipation from the P[place]. Vital Signs Vital Signs: Vital Signs Temperature 97.8 F 09/12/24 14:25 Pulse Rate 80 09/12/24 14:25 Respiratory Rate 16 09/12/24 14:25 Blood Pressure 140/90 09/12/24 14:25 Pulse Oximetry 98 09/12/24 14:25 Temperature 97.8 F 09/12/24 14:25 Pulse Rate 80 09/12/24 14:25 Respiratory Rate 16 09/12/24 14:25 Blood Pressure 140/90 09/12/24 14:25 Pulse Oximetry 98 09/12/24 14:25 Discharge Plan Discharge Clinical Impression: Closed compression fracture of L2 vertebra Patient Disposition: Home, Self-Care Condition: Stable Instructions: Antibiotic Form, Vertebral Compression Fracture (ED), Back Pain (ED) Additional Instructions: P[place]estone for pain control. Increase your MiraLax and water intake to prevent constipation from the pain medication. A lumbar brace may help with your pain control. Have close follow-up with your primary care physician. You are also being provided number to call for follow-up with Neurosurgery. If you have any worsening symptoms then please call or return to the emergency department. Patient Language: Occitan Prescriptions: New hydrocodone-acetaminophen 5-325 mg tablet 1 tablet PO Q12H PRN (Reason: pain) 7 Days Qty: 14 0RF No Action nifedipine 30 mg tablet extended release 30 mg PO DAILY cholecalciferol (vitamin D3) 4,000 unit capsule 4,000 unit PO DAILY Protonix [address] for susp in packet 40 mg PO DAILY ranitidine HCl [Zantac] 150 mg tablet 150 mg PO DAILY simvastatin 10 mg tablet 10 mg PO DAILY Lidocaine Viscous 2 % solution 1 applic MUCOUS MEM TID metformin 500 mg tablet 500 mg PO BID Qty: 60 2RF metronidazole 500 mg tablet 500 mg PO Q8H 10 Days Qty: 30 0RF ciprofloxacin HCl 500 mg tablet 500 mg PO Q12H 10 Days Qty: 20 0RF ondansetron 4 mg tablet,disintegrating 4 mg PO Q8H PRN (Reason: nausea and vomiting) Qty: 12 0RF lisinopril 10 mg tablet 10 mg PO DAILY Qty: 90 3RF alprazolam [Xanax] 0.5 mg tablet 0.5 mg PO TID Qty: 30 0RF tramadol 50 mg tablet 50 mg PO Q6H PRN (Reason: pain) Qty: 30 2RF alprazolam [Xanax] 0.5 mg tablet 0.5 mg PO BID PRN (Reason: anxiety) Qty: 30 2RF Follow-up/Referrals: Chioma Tirado MD [Physician] - [facility],XAVIER Johnston [Primary Care Provider] -
[2024-09-12] MEDS: HYDROcodone/acetaminophen (*CRX) 5-325 MG TABLET 1 TAB PO (15:31)
[2024-09-12] MEDS: CYCLOBENZAPRINE HCL 10 MG TABLET PO (15:31)
--- OUTSIDE RECORDS SUMMARY | 2024-09-14 01:49 | XMS_ITS | Referral Summary ---
Author Organization [facility] Address [address] [place] [address] Care Team Providers Care Branch Chief Name Role Phone Unavailable Primary Care Provider Unavailabl e Source Comments [facility],non-[facility] Affiliates and Associated Physician Practices is amultiple site organization consisting of ambulatory clinics and hospital sitesin [place], [place], [place] and [place]. This disclosure is being madepursuant to the Care Everywhere program and may not contain all information available regarding this patient. Last updated 18.[facility] [employer] Social History Tobacco Use Types Packs/Day Years Used Date Smoking Tobacco: Never Assessed Sex and Gender Information Value Date Recorded Sex Assigned at Not on file Gender Identity Not on file Sexual Orientation Not on file Plan of Treatment Not on file
--- OUTSIDE RECORDS SUMMARY | 2024-09-14 01:49 | XMS_ITS | Patient Health Record ---
Author Organization [facility] Address [address] [place], [place] [id number] Care Team Providers Care Director External Communications Name Role Phone Answer, Declined Unavailable Unavailable Allergies Allergen (clinical drug ingredient) Drug/Non Drug Allergy documented on EMR Reaction Allergy Type Onset Date Status bacitracin Bacitracin Unknown Drug Allergy Activ e neomycin Neomycin Unknown Drug Allergy Active Penicillin Unknown Drug Allergy Active polymyxin B Polymyxin B Unknown Drug Allergy Act deyanira Reason For Referral No Information Social History Tobacco Use: Social History Observation Description Date Details (start date - stop date) Former Smoker NA - 08/22/2018 Tobacco Use/Smoking Question Answer Notes Tobacco use: former smoker When did you stop smoking? 08/22/2018 Plan Of Treatment No Information Insurance Providers Payer Name Payer Address Payer Phone Subscriber Number Group Number Insured Name Patient Relationship to Insured Coverage Start Date Coverage End Date Medicare Part B [facility] [address] [place] [address] [id number] OLIVIER DRAKE Self - patient is the insured [employer] ([employer]) [address] [place], [place] [id number] OLIVIER DRAKE Self - patient is the insured Medical (General) History Medical History History ICD Code acid reflux Cancer (type of cancer) skin cancer GERD Sleep apnea Back Trouble restless leg syndrome Surgical History Surgery Date(Month/Year) tonsillectomy Hysterectomy Laporoscopy Carpal Tunnel release Gall Bladder Oophorectomy
--- OUTSIDE RECORDS SUMMARY | 2024-09-14 01:49 | XMS_ITS | Encounter Summary ---
Author Organization [facility] Address [address] [place] [address]. [place] [address] [place] [address] Care Team Providers Care Hydraulic Oil Tool Operator Name Role Phone Dyllan Pulido MD Unavailable Jasper Rubalcava MD Unavailable [phone] Melissa Kunz NP Primary Care Provider [phone] Desiree Horvath MD Primary Care Provider + Encounter Details Date Type Department Care Team (Late st Contact Info) Description 07/22/2022 [employer] Message Enc [facility] [address] [address] Mychart, [facility] Provider Lab results Social History Tobacco Use Types Packs/Day Years Used Date Smoking Tobacco: Former Cigarettes 1 40 0 04/22/1979 - 04/22/2019 Smokeless Tobacco: Never Comments:former smoker Alcohol Use Standard Drinks/Week Comments Yes 0 (1 standard drink = 0.6 oz pur e alcohol) occassional beer with dinner PHQ-2 Answer Date Recorded PHQ-2 Score - If the patient scores above 3, please move on to questions 3-9 0 01/04/2022 Comments No Sex and Gender Information Value Date Recorded Sex Assigned at Female 09/04/2024 10:05 AM HVAC/R INSTRUCTOR Legal Sex Female 9:10 AM CDT Gender Identity Female 08/28/2021 3:59 PM HVAC/R INSTRUCTOR Sexual Orientation Straight 08/28/2021 3: 59 PM HVAC/R INSTRUCTOR COVID-19 Exposure Response Date Recorded In the last 10 days, have rubén u been in contact with someone who was confirmed or suspected to have Coronavirus/COVID-19? No / Unsure 07/20/2022 9:03 AM HVAC/R INSTRUCTOR documented as of this encounter Plan of Treatment Upcoming Encounters Date Type Department Care Team (Late st Contact Info) Description 09/17/2024 12:45 PM HVAC/R INSTRUCTOR Office Visit [facility] Physical Therapy [address] [place] [address] Desiree Horvath MD [address] [place] [address] Luh Barry, PT [address] [place] [address] 12/03/2024 10:10 AM CDT Office Visit [facility] - [place] [address] [place] [address] Desiree Horvath MD [address] [facility] [address] [place] [address] 01/15/2025 10:15 AM CDT Appointment [facility] [address] [place] [address] Winston Javed DO [address] [facility] [place] [address] 01/21/2025 10:00 AM CDT Appointment [facility] Ultrasound [address] [place], [place] [id number] Kenyno Butt MD [facility] [place] [address] 02/20/2025 9:30 AM CDT Office Visit [facility] [address] [place] [address] Azra Geronimo, HOUSECLEANER FLOOR-C [facility]. [address] [place] [address] 03/05/2025 8:20 AM CDT Office Visit [facility] - [facility] [address] [place] [address] Winston Javed DO [address] [facility] [address] [place] [address] documented as of this encounter Visit Diagnoses Not on filedocumented in this encounter Additional Health Concerns Infection Onset Date Last Indicated Resolved Time COVID-19 Rule Out 04/12/2023 04/12/2023 04/12/2023 1:26 PM CDT COVID-19 Confirmed 04/12/2023 04/12/2023 12:32 AM CDT Assessment Noted Time PHQ-9 Depression Total Score: 3 11/19/19 21 10:26 AM CDT documented as of this encounter Care Teams Hydraulic Oil Tool Operator Relationship Specialty Start Date End Date Melissa Kunz NP [address] [place] [address] PCP - General NURSE PRACTITIONER 04/21/21 03/17/24 Desiree Horvath MD [address] [place] [address] PCP - General 03/18/24 Dyllan Pulido MD CARDIOVASCULAR DISEASE 11/18/20 Jasper Rubalcava MD GASTROENTEROLOGY 11/18/20 documented as of this encounter
--- OUTSIDE RECORDS SUMMARY | 2024-09-14 01:49 | XMS_ITS | Clinical Summary ---
Author Organization [facility] Address [address] [place] [address]. [place] [address] [place] [address] Care Team Providers Care Rubber Calender Helper Name Role Phone Dyllan Pulido MD Unavailable Jasper Rubalcava MD Unavailable [phone] Desiree Horvath MD Primary Care Provider + Allergies Active Allergy Reactions Criticality Noted Date Comments Bacitracin Unknown 04/12/2023 Metformin GI Upset 03/19/2024 severe Neomycin Rash Medium 12/28/2018 Neomycin-Bacitracin Zn-Polymyx Rash Medium 12/28 Rrghsjmn-Iwohcuxfu-Qbfqkkukky Rash Medium 2019 Penicillins Nausea and Vomiting Low 04/29/2020 Polymyxin B Unknown 04/12/2023 Medications aspirin EC (ASPIRIN EC) 81 MG tablet 1 tablet (81 mg total). 03/19/20 14 Active Nelsonia-3 Fatty Acids (FISH OIL) 1200 MG Cap 04/22/20 20 Active Vitamin D3, cholecalciferol, 2000 UNIT Tab tablet Take 1 tablet (2,000 Units total) by mouth daily. Active Fiber 500 MG Cap Take 1 tablet by mouth 2 (two) times daily. Active ferrous sulfate EC 324 (65 Fe) MG tablet Take 1 tablet (324 mg total) by mouth daily with breakfast. Active hydrocortisone 2.5 % cream Apply topically 2 (two) times daily. 10/04/19 24 Active triamcinolone (KENALOG) 0.025 % cream Apply topically 2 (two) times daily. 10/03/19 24 Active isosorbide mononitrate ER (IMDUR) 30 MG 24 hr tabletIndications: Hypertension, unspecified type Take 1 tablet (30 mg total) by mouth daily. 90 tablet 3 01/12/20 24 Active levothyroxine (SYNTHROID) 50 MCG tabletIndications: Hypothyroidism, unspecified type Take 1 tablet (50 mcg total) by mouth every morning. 90 tablet 3 01/12/20 24 Active rosuvastatin (CRESTOR) 40 MG tabletIndications: Hyperlipidemia, unspecified hyperlipidemia type Take 1 tablet (40 mg total) by mouth nightly at bedtime. 90 tablet 3 01/12/20 24 Active hydroCHLOROthiazid e (MICROZIDE) 12.5 MG capsuleIndications :Hypertension, unspecified type Take 1 capsule (12.5 mg total) by mouth every morning. 90 capsule 3 02/08/20 24 Active nystatin (MYCOSTATIN) powderIndications: Intertrigo Apply topically 4 (four) times daily. Apply under breasts and in groin 60 g 11 02/17/20 24 Active meloxicam (MOBIC) 15 MG tabletIndications: Pain of both heels Take 1 tablet (15 mg total) by mouth daily as needed. 90 tablet 05/31/20 24 Active glipiZIDE XL 10 MG 24 hr tabletIndications: Type 2 diabetes mellitus with diabetic neuropathy, without long-term current use of insulin ([facility]/HCC HHS/HCC) Take 1 tablet (10 mg total) by mouth daily with breakfast. Do not break or crush tablet 90 tablet 1 05/31/20 24 025 Active RABEprazole EC (ACIPHEX) 20 MG tabletIndications: Gastroesophageal reflux disease, unspecified whether esophagitis present Take 1 tablet (20 mg total) by mouth daily. Put on file. 90 tablet 3 07/23/20 24 Active traMADol (ULTRAM) 50 MG tabletIndications: Chronic Pain Take 1 tablet (50 mg total) by mouth daily as needed for Pain. Indications: Chronic Pain Each supply to last one month. 30 tablet 2 08/10/20 24 Active cyclobenzaprine (FLEXERIL) 5 MG tabletIndications: Acute bilateral low back pain without sciatica Take 1 tablet (5 mg total) by mouth 2 (two) times daily as needed for Muscle Spasms. 30 tablet 09/04/19 25 025 Active HYDROcodone-acetam inophen (NORCO) 5-325 MG tablet Take 1 tablet by mouth every 8 (eight) hours as needed. 09/12/19 25 Active gabapentin (NEURONTIN) 300 MG capsuleIndications :Occipital neuralgia, unspecified laterality Take 1 capsule (300 mg total) by mouth every evening. 30 capsule 09/13/19 25 Active gabapentin (NEURONTIN) 300 MG capsuleIndications :Occipital neuralgia, unspecified laterality Take 1 capsule (300 mg total) by mouth every evening. 30 capsule 08/10/20 24 025 Discontin ued(Reord er) Active Problems Problem Noted Date Diagnosed Date Achilles tendinitis of both lower extremities Overview (03/19/2024): Takes meloxicam when it flares, maybe weekly. Assessment & Plan (05/31/2024 11:01 AM CDT): Controlled. Monitor kidney function. Assessment & Plan (03/19/2024 10:15 AM CDT): Kidney function remains normal. Will need to monitor. Using NSAIDs infrequently. Acquired hypothyroidism 03/19/2024 Overview (03/19/2024): Takes levothyroxine. Last TSH in October was normal. Assessment & Plan (05/31/2024 11:01 AM CDT): Chronic and controlled. Continue levothyroxine. TSH next visit. Assessment & Plan (03/19/2024 10:15 AM CDT): Repeat TSH in October. Stable. RLS (restless legs syndrome) 06/01/2023 Overview (03/19/2024): Takes cannabis Chronic bilateral low back p ain, unspecified whether sciatica present 06/01/2023 Overview (03/19/2024): Takes tramadol about twice monthly. Assessment & Plan (08/10/2024 12:20 PM ASH WORKER): Increase tramadol to daily as needed especially since her activities have increased recently. If this is more long-term we will do a urine drug screen and contract next visit. Assessment & Plan (05/31/2024 11:01 AM CDT): Rare use. 30 tablets last 1 year supply. Chronic left shoulder pain 12/30/2022 Sigmoid diverticulitis 06/15/2022 Obstructive sleep apnea syndrome 06/09/2022 Overview (03/19/2024): Patient reports that she has a machine from years ago but does not use it. She was not able to tolerate it. She also tried a mouthguard which shifted her teeth. She declines any management now. Erythrocytosis 04/13/2022 Gastroparesis 04/13/2022 Primary osteoarthritis of both knees 01/05/2022 Assessment & Plan (01/05/2022 9:12 PM CDT): We discussed the risks, benefits and alternatives. The only thing proven to slow the progression of osteoarthritis is weight loss. Every pound lost relieves 4 to 6 pounds of stress across the knee. We discussed unloading braces. Formal physical therapy to help with flexibility, mobility and strength. We discussed TENS units. Nonsteroidal anti-inflammatories as well as Tylenol and pain medication and their side effects. We discussed steroid versus Visco supplement injection. We discussed eventual total knee arthroplasty. Type 2 diabetes mellitus wit h diabetic neuropathy, without long-term current use of insulin ([facility]) 12/18/2021 Overview (05/31/2024): Last A1c 7.1% in October 2023. Currently taking glipizide 5 mg daily. Both metformin short and long-acting cause significant GI issues. Tried Jardiance Jardiance which caused yeast infections. Assessment & Plan (05/31/2024 10:59 AM CDT): Chronic. In controlled if goal less than 8%. Could consider tightening goal slightly since she is in reasonable health. Will increase glipizide to 10 mg daily to help keep her solidly on the low 7% range. Assessment & Plan (03/19/2024 10:13 AM CDT): Will initiate glipizide 5 mg daily. Request she drop off blood sugars in 2 weeks to determine if higher doses are needed before her routine follow-up in May. Assessment & Plan (02/17/2024 11:05 AM CDT): Not controlled and not tolerating Jardiance well. Discontinue Jardiance. Discussed a trial of long-acting form of metformin which she is likely to tolerate better. Kidney function should tolerate. Start metformin extended release 1000 mg daily. She will update me if she develops side effects. We did discuss trying glipizide if needed if she does not tolerate. Assessment & Plan (01/05/2022 9:12 PM CDT): Therefore would like to avoid nonsteroidal anti-inflammatories as well as steroid injection Right inguinal hernia 10/21/2020 Umbilical hernia without obstruction and without gangrene 10/21/2020 Degenerative disc disease, lumbar 05/29/2020 Osteopenia of lumbar spine 05/29/2020 Mixed hyperlipidemia 04/29/2020 Overview (03/19/2024): Takes rosuvastatin. Assessment & Plan (05/31/2024 11:00 AM CDT): CMP and lipid panel from October 2023 was reviewed. Chronic and controlled at goal. Repeat CMP and lipid panel next visit again. Assessment & Plan (03/19/2024 10:14 AM CDT): CMP and lipid panel remain up-to-date. Continue rosuvastatin. Anxiety 04/29/2020 Gastroesophageal reflux disease without esophagi tis 04/29/2020 Overview (07/23/2024): Attempted eliminating rabeprazole and using famotidine instead. Reports her symptoms have flared and she is not able to manage symptoms after de-escalating off of PPI. Assessment & Plan (07/23/2024 3:44 PM ASH WORKER): Chronic and not controlled. Resume rabeprazole. Benefits outweigh risk of long- term use. Patient is comfortable with this plan. Assessment & Plan (05/31/2024 11:01 AM CDT): Chronic condition. Patient reports she will attempt taking Pepcid to see if this manages symptoms alone. If not she will continue the rabeprazole. Attempts to balance benefit and risk long-term. Assessment & Plan (03/19/2024 10:14 AM CDT): Control. Continue rabeprazole Ex-cigarette smoker 04/29/2020 Essential hypertension 06/21/2014 Overview (05/31/2024): Patient takes hydrochlorothiazide, isosorbide mononitrate. Patient does not recall any cardiac conditions which are warranting the Imdur. Assessment & Plan (05/31/2024 11:00 AM CDT): Controlled today. Continue hydrochlorothiazide and isosorbide mononitrate. Await CMP-lab issue with [facility]. Assessment & Plan (03/19/2024 10:14 AM CDT): Not controlled today but was previously very well-controlled. Will hold off on any adjustments and recommend that she monitor her blood pressures at home. Continue hydrochlorothiazide and isosorbide mononitrate. Resolved Problems Problem Noted Date Diagnosed Date Resolved Date Hypercortisolism ([facility]) 12/18/2021 04/13/2022 Vertigo 12/18/2021 06/08/2022 Restless leg syndrome 11/23/20212021 Fall, subsequent encounter 09/07/2021 0 12/16/2022 Abdominal hernia 06/06/2020 10/21/2020 Spigelian hernia 06/06/2020 10/21/2020 Back muscle spasm 05/23/2020 05/29/2020 Constipation, unspecified constipation type 05/05/2020 06/08/2022 Generalized abdominal pain 05/05/2020 1 Angina pectoris 04/29/2020 12/18/2021 Ex-cigar smoker 04/29/2020 05/29/2020 Encounters Date Type Department Care Team Description 09/13/2024 1:20 PM ASH WORKER Office Visit [address] [place] [address] Desiree Horvath MD ER F/U (Was at ER.yest. was dx with closed compression fx of L2 vertebra. She is still in a lot of pain. Pain is on the left side of her body. ) 09/13/[address] [place] [address] Desiree Horvath MD Refill Request 09/13/2024 Travel 09/12/2024 Scan [employer] INFO SRVCS Scanned, Doc [facility] CT (SCAN) 09/12/[address] [place] [address] Desiree Horvath MD Pain 09/04/2024 2:10 PM ASH WORKER Office Visit [address] [place] [address] Desiree Horvath MD Anxiety (b); Back Pain (Was shoveling snow. Using voltarin on her back. Still in a lot of pain. Middle of back to her hips. Onset- several days. ) 09/04/2024 Travel 09/04/[address] [place] [address] Desiree Horvath MD Back Pain; Advice 08/10/2024 11:30 AM ASH WORKER Office Visit [address] [place] [address] Desiree Horvath MD Back Pain (Onset- couple years. Hx of fx back. ); Headache (Onset- 2 wks. Comes in the am. Top of her head. ) 08/10/2024 Travel 07/23/2024 2:20 PM ASH WORKER Office Visit [address] [place] [address] Desiree Horvath MD Medication Check (She wants to be placed on omeprazole. She thinks she has acid refulx. ) 07/23/2024 Travel 06/14/2024 Telephone [facility] [address] [facility] [address] [place] [address] Desiree Horvath MD Mammogram (SCAN) from Last 3 Months Immunizations Name Administration Dates Next Due Fluad influenza vaccine, Ulysses drivalent (aIIV4), Inactivated, adjuvanted, preservative free, 0.5 mL,IM use 05/26/2019 Fluzone High Dose (IIV, triv alent, 0.5mL) 06/11/2015 Fluzone High Dose - >Age 65 (Prefilled Syringe) 06/08/2024,06/08/2022,06/05/2021,2019,05/30/2018,05/22/2017,07/26/2016 Influenza (Generic) 06/07/2013 Influenza Adult (Generic) 06/25/2023,05/22/2020, 06/11/2015 MODERNA COVID-19 (12+) MRNA, LNP-S, PF, 100 MCG/ 0.5 ML DOSE 11/12/2020,10/15/2020 Pneumococcal (Pneumovax 23) 08/22/2016 Pneumococcal (Prevnar 13) 06/25/2018 Shingrix 06/01/2022,02/27/2022 Tdap (Adacel) 01/07/2021 Zoster (Zostavax) [address]70[address] Unt/0.65Ml 06/30/2010 Family History Medical History Relation Comments Dementia Father Stroke Father Heart Disease Mother Cancer Sister Relation Status Comments Father Mother Alive Sister Social History Tobacco Use Types Packs/Day Years Used Date Smoking Tobacco: Former Cigarettes 2 019 - 1967 Passive Smoke Exposure: Past Smokeless Tobacco: Never Tobacco Cessation:Counseling Given: No Comments:former smoker Alcohol Use Standard Drinks/Week Comments Yes 0 (1 standard drink = 0.6 oz pur e alcohol) occassional beer with dinner PHQ-2 Answer Date Recorded Patient Health Questionnaire-2 Score 0 09/04/2024 Comments No Sex and Gender Information Value Date Recorded Sex Assigned at Female 09/04/2024 10:05 AM ASH WORKER Legal Sex Female 9:10 AM CDT Gender Identity Female 08/28/2021 3:59 PM ASH WORKER Sexual Orientation Straight 08/28/2021 3: 59 PM ASH WORKER Last Filed Vital Signs Vital Sign Reading Time Taken Comments Blood Pressure 120/70 09/13/2024 1:32 PM ASH WORKER Pulse 77 09/13/2024 1:25 PM ASH WORKER Temperature 36.4 ??C (97.6 ??F) 09/13/2024 1:25 PM CS T Respiratory Rate 17 07/23/2024 2:01 PM ASH WORKER Oxygen Saturation 98% 09/13/2024 1:25 PM ASH WORKER Inhaled Oxygen Concentration - - Weight 83.6 kg (184 lb 3.2 oz) 09/13/2024 1:25 P M ASH WORKER Height 165.1 cm (5' 5 ) 09/13/2024 1:25 PM ASH WORKER Body Mass Index 30.65 09/13/2024 1:25 PM ASH WORKER Plan of Treatment Upcoming Encounters Date Type Department Care Team (Late st Contact Info) Description 09/17/2024 12:45 PM ASH WORKER Office Visit [facility] [address] [place] [address] Desiree Horvath MD [address] [place] [address] Luh Barry, PT 1 [place] [address] 12/03/2024 10:10 AM CDT Office Visit [facility] - [place] [address] [place] [address] Desiree Horvath MD [address] [place] [address] 01/15/2025 10:15 AM CDT Appointment [facility] [address] [place] [address] Winston Javed DO [address] [facility] [address] [place] [address] 01/21/2025 10:00 AM CDT Appointment [facility] Ultrasound [address] [place] [address] Kenyon Butt MD [address] [facility] [place] [address] 02/20/2025 9:30 AM CDT [facility] [address] [place] [id number] Azra Geronimo, LOGISTICS TEAM LEAD-C [address] [place] [address] 03/05/2025 8:20 AM CDT Office Visit [facility] Multispecialty Care - [facility] [address] [facility] [place] [address] Winston Javed DO [address] [facility] [address] [place] [address] Health Maintenance Due Date Last Done Comments Kidney Health Evaluation 1950 COVID-19 Vaccine ( season) 2024 11/12/2020, 10/15/2020 RSV Immunization or 60+ Years (1 - 1-dose 75+ series) 2024 Lipid Panel 11/13/2024 11/14/2023, 11/21, 12/16/2021, Additional history exists Hemoglobin A1C 11/29/2024 05/31/2024, 10/21, 12/13/2022, Additional history exists Annual Medicare Wellness Visit 11/30/2024 11/18/2020 Postponed from 11/19/2021 (Patient Refused) Diabetes: Retinopathy Eye Exam 01/27/2025 01/27/2023 PHQ-2 (Physician Crawford) 09/04/2025 09/04/2024 Colorectal Cancer Screening Colonoscopy (10 Years) 03/13/2029 03/13/2019 DTaP, Tdap and Td Vaccines (2 - Td or Tdap) 01/07/2031 01/07/2021 Pneumococcal Vaccine: 65+ Years Completed 06/25/2018, 08/22/2016 Dexa Scan (General) Completed 07/07/2021, 9 Hepatitis C Completed 01/01/2022, 04/22/2021 Zoster Vaccines Completed 06/01/2022, 04/2022, 06/30/2010 Influenza Adult Completed 06/08/2024, 11/2022, 06/08/2022, Additional history exists Meningococcal B Vaccine Aged Out No l onger eligible based on patient's age to complete this topic Meningococcal Vaccine Aged Out No juan c sarah eligible based on patient's age to complete this topic RSV Immunizations Under 20 Months Aged Out No longer eligible based on patient's age to complete this topic Procedures Procedure Name Priority Date/Time Associated Diagnosis Comments CT GENERIC 09/12/2024 CT GENERIC 09/12/2024 HEMOGLOBIN, GLYCOSYLATED Today 05/31/2024 Type 2 diabetes mellitus with diabetic neuropathy, without long-term current use of insulin ([facility]) LIPID PANEL Routine 11/14/2023 8:51 AM CDT DIABETIC RETINOPATHY EXAM (NEGATIVE)(SCAN ORDER) Routine 01/27/2023 HEPATITIS C ANTIBODY W/RFX TO HCV RNA Routine 01/01/2022 9:04 AM CDT Need for hepatitis C screening test BONE DENSITY/DEXA Routine 07/07/2021 12: 00 AM ASH WORKER Osteopenia, unspecified location Postmenopausal COLONOSCOPY GENERIC (SCAN ORDER) Routine 03/13/2019 12:00 AM CDT from Last 3 Months or Most Recently Relevant to Health Maintenance Results * CT GENERIC (09/12/2024) Only the most recent of2 resultswithin the time period is included. Anatomical Region Laterality Modality Other 09/12/2024 us [facility] Scanned SCANNING Final Resu lt * HEMOGLOBIN, GLYCOSYLATED (05/31/2024) HGB A1C 7.6 % [address], [place] 05/31/2024 Desiree Horvath MD LABORATORY Final Re sult [address] [place] [address] [facility] [place] [address], * (ABNORMAL) LIPID PANEL (11/14/2023 8:51 AM CDT) CHOLESTEROL 122 <200 mg/dL [facility] HDL 49(L) > OR = 50 mg/dL [facility] Amitree [facility] TRIGLYCERIDES 183(H) <150 mg/dL [facility] Amitree [facility] LDL (CALCULATED) 47 mg/dL (calc) [facility] Comment: Reference range: <100 Desirable range <100 mg/dL for primary prevention; ?? <70 mg/dL for patients with CHD or diabetic patients with > or = 2 CHD risk factors. LDL-C is now calculated using the Jose-Jez calculation, which is a validated novel method providing better accuracy than the Friedewald equation in the estimation of LDL-C. Jose SS et al. SHANIQUA. 2013;310(19): 7374-6046 (http://education.Leap Motion.CrowdClock/faq/CDV512) CHOL/HDL RATIO 2.5 <5.0 (calc) [facility] NON HDL CHOLESTEROL 73 <130 mg/dL (calc) [facility] Comment: For patients with diabetes plus 1 major ASCVD risk factor, treating to a non-HDL-C goal of <100 mg/dL (LDL-C of <70 mg/dL) is considered a therapeutic option. 11/14/2023 8:51 AM CDT 11/14/2023 8:54 AM CDT Narrative [facility] - 11/18/2023 1:22 AM CDT FASTING:YES FASTING: YES Resulting Agency Comment Performing Organization Information: ?Site ID: [place] ?Name: Uziel Mcnealexa ?Address: [address] [place] [address] ?Director: Keenan Olivares MD Melissa Kunz LOGISTICS TEAM LEAD LABORATORY Final Res ult Performing Organization Address City/[facility]/ZIP Co de Phone Number [facility] [employer] LILIANE [facility] [address] [place] [address], * DIABETIC RETINOPATHY EXAM (NEGATIVE)(SCAN) (01/27/2023) [facility] Scanned SCANNING Final Resu lt Performing Organization Address [facility]/ZIP Co de Phone Number [facility] ONBASE * HEPATITIS C ANTIBODY W/RFX TO HCV RNA ([facility] ONLY) (01/01/2022 9:04 AM CDT) HEPATITIS C AB NON-REACTI VE NON-REACT [facility] SIGNAL TO CUTOFF 0.[address] <[address] [facility] Comment: HCV antibody was non-reactive. There is no laboratory evidence of HCV infection. In most cases, no further action is required. However, if recent HCV exposure is suspected, a test for HCV RNA (test code 65004) is suggested. For additional information please refer to http://education.Purewire/faq/JXQ83e1 (This link is being provided for informational/ educational purposes only.) 01/01/2022 9:04 AM CDT 01/02/2022 7:12 AM CDT Melissa Alfredt LOGISTICS TEAM LEAD LABORATORY Final Res ult [facility] [address] [address] [id number] * BONE DENSITY/DEXA (07/07/2021 12:00 AM ASH WORKER) Anatomical Region Laterality Modality Bone Bone Density 07/07/2021 us Melissa Kunz LOGISTICS TEAM LEAD DEXA Final Res ult * COLONOSCOPY (03/13/2019 12:00 AM CDT) 03/13/2019 [facility] Scanned SCANNING Final Resu lt Performing Organization Address City/[facility]/ZIP Co de Phone Number [facility] [address] [address] from Last 3 Months or Most Recently Relevant to Health Maintenance Insurance MEDICARE Care Teams Rubber Calender Helper Relationship Specialty Start Date End Date Desiree Horvath MD [address] [place] [id number] PCP - General 03/18/24 Dyllan Pulido MD CARDIOVASCULAR DISEASE 11/18/20 Jasper Rubalcava MD GASTROENTEROLOGY 11/18/20
--- OUTSIDE RECORDS SUMMARY | 2024-09-14 01:49 | XMS_ITS | Encounter Summary ---
Author Organization [facility] Address [address] [place] [address]. [place] [address] [place] [address] Care Team Providers Care Contract Accountant Name Role Phone Dyllan Pulido MD Unavailable Jasper Rubalcava MD Unavailable [phone] Melissa Kunz NP Primary Care Provider [phone] Desiree Horvath MD Primary Care Provider + Encounter Details Date Type Department Care Team (Late st Contact Info) Description 12/09/2021 Ensogot Message Enc [facility] Family Medicine - [place] [address] [place], [place] [address] Melissa Kunz NP [address] [place], [place] [address] prescription Social History Tobacco Use Types Packs/Day Years Used Date Smoking Tobacco: Former Cigarettes 1 40 0 04/22/1979 - 04/22/2019 Smokeless Tobacco: Never Alcohol Use Standard Drinks/Week Comments Yes 0 (1 standard drink = 0.6 oz pur e alcohol) occassional beer with dinner PHQ-2 Answer Date Recorded PHQ-2 Score - If the patient scores above 3, please move on to questions 3-9 0 11/18/2020 Comments No Sex and Gender Information Value Date Recorded Sex Assigned at Female 09/04/2024 10:05 AM SCHOOL CHILDCARE ATTENDANT Legal Sex Female 9:10 AM CDT Gender Identity Female 08/28/2021 3:59 PM SCHOOL CHILDCARE ATTENDANT Sexual Orientation Straight 08/28/2021 3: 59 PM SCHOOL CHILDCARE ATTENDANT COVID-19 Exposure Response Date Recorded In the last 10 days, have yo u been in contact with someone who was confirmed or suspected to have Coronavirus/COVID-19? No / Unsure 11/23/2021 2:14 PM CDT documented as of this encounter Plan of Treatment Upcoming Encounters Date Type Department Care Team (Late st Contact Info) Description 09/17/2024 12:45 PM SCHOOL CHILDCARE ATTENDANT Office Visit [facility] [address] [place] [address] Desiree Horvath MD [address] [address] [address] [place] [address] Luh Barry, PT 1 [place] [address] 12/03/2024 10:10 AM CDT Office Visit [facility] Medical [facility] Family Medicine - [place] [address] [place] [id number] Desiree Horvath MD [address] [facility] [facility] [address] [place] [address] 01/15/2025 10:15 AM CDT Appointment [facility] [address] [place] [address] Winston Javed DO [address] [facility] [place] [address] 01/21/2025 10:00 AM CDT Appointment [facility] Ultrasound [address] [place], [place] [phone] Kenyon Butt MD [address] [facility] [place] [address] 02/20/2025 9:30 AM CDT [facility] [address] [place] [address] Azra Geronimo, FABRIC STRETCHER-C [address] [place] [address] 03/05/2025 8:20 AM CDT Office Visit [facility] Medical [facility] Multispecialty Care - [facility] [address] [place] [id number] Winston Javed DO [address] [place] [address] documented as of this encounter Visit Diagnoses Not on filedocumented in this encounter Additional Health Concerns Infection Onset Date Last Indicated Resolved Time COVID-19 Rule Out 04/12/2023 04/12/2023 04/12/2023 1:26 PM CDT COVID-19 Confirmed 04/12/2023 04/12/2023 12:32 AM CDT Assessment Noted Time PHQ-9 Depression Total Score: 3 11/19/19 21 10:26 AM CDT documented as of this encounter Care Teams Contract Accountant Relationship Specialty Start Date End Date Melissa Kunz NP [address] [place] [address] PCP - General NURSE PRACTITIONER 04/21/21 03/17/24 Desiree Horvath MD [address] [place] [address] PCP - General 03/18/24 Dyllan Pulido MD CARDIOVASCULAR DISEASE 11/18/20 Jasper Rubalcava MD GASTROENTEROLOGY 11/18/20 documented as of this encounter
--- OUTSIDE RECORDS SUMMARY | 2024-09-14 01:49 | XMS_ITS | Patient Health Summary ---
Author Organization [facility] Address [address] [place] [address] Care Team Providers Care Online Advertising Analyst Name Role Phone Unavailable Primary Care Provider Unavailabl e Note from [facility],non-owned Affiliates and Associated Physician Practices is amultiple site organization consisting of ambulatory clinics and hospital sitesin [place], [place], [place] and [place]. This disclosure is being madepursuant to the Care Everywhere program and may not contain all information available regarding this patient. Last updated 18.[facility] Social History Tobacco Use Types Packs/Day Years Used Date Smoking Tobacco: Never Assessed Sex and Gender Information Value Date Recorded Sex Assigned at Not on file Gender Identity Not on file Sexual Orientation Not on file Procedures * DERMATOPATHOLOGY(Performed 09/16/2020) * DERMATOPATHOLOGY(Performed 06/20/2019) * DERMATOPATHOLOGY(Performed 08/11/2017) * DERMATOPATHOLOGY(Performed 05/25/2017) * DERMATOPATHOLOGY(Performed 08/01/2014) * DERMATOPATHOLOGY(Performed 11/01/2011) Results * DERMATOPATHOLOGY (09/16/2020 12:00 AM TANK CARPENTER) Only the most recent of6 resultswithin the time period is included. Case Report Dermatopathology Report ? Case: [id number] ? Authorizing Provider: ??Erickson White MD ?Collected: ? 09/16/2020 12:00 AM ? Ordering Location: ? [facility] DermPath Lab ?Received: ?09/17/2020 12:30 PM ? Pathologist: ? Tina Farrell MD ? Specimen: ?Skin, right mid paraspinal back ? 4:59 PM [facility] DERMATOPATHOLOGY LABORATORY Final Diagnosis Specimen A. SKIN, right mid paraspinal back: LICHEN PLANUS-LIKE KERATOSIS (BENIGN LICHENOID KERATOSIS) (L82.1) EPIDERMAL NECROSIS SUGGESTIVE OF EXCORIATION (L98.499) 4:59 PM [facility] DERMATOPATHOLOGY LABORATORY Clinical History R/O SCC, Betts's. 4:59 PM [facility] DERMATOPATHOLOGY LABORATORY Gross Description Specimen A: Received is one formalin filled container labeled with the patient's name and designated right mid paraspinal back. The specimen consists of a shave biopsy measuring 30v80v9ml. Jar 0. 4:59 PM [facility] DERMATOPATHOLOGY LABORATORY Microscopic Description Specimen A. SKIN, right mid paraspinal back: The epidermis is mildly acanthotic. There is a lichenoid infiltrate with vacuolar changes of basilar keratinocytes and scattered necrotic keratinocytes. The epidermis is focally necrotic and covered with a scale-crust. There is fibrin at the base. 4:59 PM [facility] DERMATOPATHOLOGY LABORATORY Disclaimer An external and internal positive and negative controls are appropriate for the histochemical, immunohistochemical and immunofluorescence stain(s) in this case (if any), except where stated explicitly. The performance characteristics of the stain(s) cited in this report were developed and its performance characteristic determined by the Dermatopathology Laboratory at [facility], directed by Dr. Paulina Farrell. These tests need not be, and therefore are not, approved by the [place] Food and Drug Administration. The tests are used for clinical purposes. Billing Codes Specimen Charges Stain Charges 86312 1 1 4:59 PM [facility]MAT[facility]ORATORY Embedded Images 1 4:59 PM [facility] Pathology/Cytolog y TISSUE SPECIMEN FROM SKIN / Unknown 09/16/2020 09/17/2020 12:30 PM TANK CARPENTER Erickson White MD LAB - PATHOLOGY/CYTO LOGY ORDERABLES DERMATOPATHOLOGY LABORATORY [facility] - Department of Dermatology [address], [address] [phone]
--- OUTSIDE RECORDS SUMMARY | 2024-09-14 01:49 | XMS_ITS | Clinical Summary ---
Author Organization [facility] Address [address] [place] [address] Care Team Providers Care Green Feed Attendant Name Role Phone Unavailable Primary Care Provider Unavailabl e Source Comments [facility],non-owned Affiliates and Associated Physician Practices is amultiple site organization consisting of ambulatory clinics and hospital sitesin [place], [place], [place] and [place]. This disclosure is being madepursuant to the Care Everywhere program and may not contain all information available regarding this patient. Last updated 18.[facility] Social History Tobacco Use Types Packs/Day Years Used Date Smoking Tobacco: Never Assessed Sex and Gender Information Value Date Recorded Sex Assigned at Not on file Gender Identity Not on file Sexual Orientation Not on file Plan of Treatment Health Maintenance Due Date Last Done Comments BONE DENSITY TESTING 1950 COLOGUARD (AGES 45-75) - COL ON CA SCREENING 1949 COLON MONITORING 1949 COLONOSCOPY - COLON CA SCREENING 1949 CT COLONOGRAPHY - COLON CA SCREENING 1950 Colorectal Cancer Screening 1950 FIT - COLON CA SCREENING 1949 FLEX SIG - COLON CA SCREENING 1949 LIPID TESTING 1950 MAMMOGRAM 1950 MEDICARE AWV ? 12 MONTHS 1950 HEPATITIS C SCREENING 07/24/1967 DTAP/TDAP/TD VACCINES (1 - Tdap) 1968 PNEUMOCOCCAL VACCINE 50+ (1 of 1 - PCV) 1999 ZOSTER VACCINE (1 of 2) 1999 COVID-19 VACCINE (2023-2 5 season) 2024 INFLUENZA VACCINE (#1) 2024 Respiratory Syncytial Virus (RSV) Vaccine Pt: or over 60 yrs (1 - 1-dose 75+ series) 2024 DEPRESSION SCREENING 08/22/2024 HEPATITIS B VACCINE Aged Out No longe r eligible based on patient's age to complete this topic HIB VACCINE Aged Out No longer eligi ble based on patient's age to complete this topic HPV VACCINE Aged Out No longer eligi ble based on patient's age to complete this topic MENINGOCOCCAL (Group B) VACCINE Aged Out No longer eligible based on patient's age to complete this topic MENINGOCOCCAL VACCINE Aged Out No juan c sarah eligible based on patient's age to complete this topic
--- OUTSIDE RECORDS SUMMARY | 2024-09-14 01:49 | XMS_ITS | Clinical Summary ---
Author Organization [facility] [address] Address [address] [place] [address] Care Team Providers Care Ship'S Carpenter Name Role Phone Melissa Kunz MD Primary Care Provider [phone] Allergies Active Allergy Reactions Criticality Noted Date Comments Neomycin Rash Medium 12/28/2018 Ujlmmcbx-Xcnugaqqd-Sslxfobmir Rash Medium 2019 Nnwgikww-Yesspoimus-Tbzfhqhjq Rash Medium 2018 Penicillins Nausea & Vomiting Low Medications lisinopril (PRINIVIL,ZESTRI L) 10 mg tablet take 1 tablet by oral route every day 0 0 4 Active Additional Information Patient not taking.Reported on 12/09/2021 traMADol (ULTRAM) 50 mg tablet take 1 tablet by oral route every 6 hours as needed 0 [address] (PROTONIX) 40 mg EC tablet 9 Active cholecalciferol (VITAMIN D-3) 2,000 unit tablet Vitamin D3 2,000 unit tablet TK 1 T PO QD Active nitroglycerin (NITROSTAT) 0.[address] 1 tablet (0.4 mg total) under the tongue every 5 (five) minutes as needed for chest pain May repeat dose q 5 min, up to 3 doses total 100 tablet 11 9 Active rosuvastatin (CRESTOR) 40 mg tablet Take 1 tablet (40 mg total) by mouth daily 30 tablet 11 9 Active levothyroxine (SYNTHROID) 25 mcg tablet 0 Active escitalopram (LEXAPRO) 20 mg tablet 1 Active pramipexole (MIRAPEX) 0.25 mg tablet 1 Active fish oil-dha-epa 1,200-144-216 mg capsule Take by mouth Active aspirin 81 mg enteric coated tablet Take 1 tablet (81 mg total) by mouth daily 30 tablet 11 1 Active gabapentin (NEURONTIN) 100 mg capsule Take 300 mg by mouth daily 2 Active NIFEdipine CC 30 mg 24 hr tablet TAKE 1 TABLET DAILY 90 tablet 3 2 Active isosorbide mononitrate ER (IMDUR) 30 mg 24 hr tablet TAKE 1 TABLET DAILY 90 tablet 3 Active Active Problems Problem Noted Date Diagnosed Date Hypertension 06/21/2014 Overview (11/25/2016): Hypertensive disorder Surgical History Surgery Date Site/Laterality Comments CHOLECYSTECTOMY Cholecystectomy TOTAL ABDOMINAL HYSTERECTOMY Hysterectomy, total Medical History Medical History Date Comments Hypertension Hypertension Hx Other Medical carpal tunnel r elease surgery b/l Hx Other Medical HLP Family History Medical History Relation Name Comments No Known Problems Father No Known Problems Mother Relation Name Status Comments Father Mother Social History Tobacco Use Types Packs/Day Years Used Date Smoking Tobacco: Former Cigarettes Q uit: 10/19/2016 Smokeless Tobacco: Never Tobacco Cessation:Ready to Q uit: No; Counseling Given: No Alcohol Use Standard Drinks/Week Comments No 0 (1 standard drink = 0.6 oz pur e alcohol) PHQ-2 Answer Date Recorded PHQ-2 Total Score (If total score is 3 or more points, staff should administer the PHQ-9) 0 11/27/2019 Personal Safety Answer Date Recorded Getting School Help Needed Not on file 10/11 Comments Unknown Sex and Gender Information Value Date Recorded Sex Assigned at Not on file Legal Sex Female 12:04 AM LDR NURSE Gender Identity Female 11/27/2019 3:36 PM CDT Sexual Orientation Straight 11/27/2019 3: 36 PM CDT Obstetrics History Last Filed Vital Signs Vital Sign Reading Time Taken Comments Blood Pressure 102/60 12/09/2021 9:09 AM CDT Pulse 65 12/09/2021 9:09 AM CDT Temperature - - Respiratory Rate 15 05/28/2020 10:55 AM CDT Oxygen Saturation 96% 12/09/2021 9:09 AM CDT Inhaled Oxygen Concentration - - Weight 83.9 kg (185 lb) 12/09/2021 9:09 AM CDT Height 165.1 cm (5' 5 ) 12/09/2021 9:09 AM CDT Body Mass Index 30.79 12/09/2021 9:09 AM CDT Plan of Treatment Health Maintenance Due Date Last Done Comments Colon Cancer Screening-Colonoscopy 1950 Hepatitis C Screening 1950 Osteoporosis Screening-Bone Density Scan 1949 Hepatitis B Screening 1967 Zoster Vaccine (2 of 3) 08/25/2010 06/30/2010 Well Visit 65+ 2014 Pneumococcal vaccine 65+ (2 of 2 - PPSV23 or PCV20) 06/25/2019 06/25/2018 Depression Screening 11/27/2020 11/28/2019 Fall Risk Assessment 11/27/2020 11/28/2019 Covid-19 Vaccine ( - season) 2024, 10/15/2020 Influenza Vaccine (#1) 2024 , 06/11/2015, 06/07/2013 DTaP/Tdap/Td Vaccine (2 - Td or Tdap) 01/07/2031 Insurance MEDICARE [employer] Care Teams Ship'S Carpenter Relationship Specialty Start Date End Date Melissa Kunz MD PCP - General Nurse Practitioner 06/03/21
--- OUTSIDE RECORDS SUMMARY | 2024-09-14 01:49 | XMS_ITS | Encounter Summary ---
Author Organization [facility] Address [address] [place] [address]. [place] [address] [place] [address] Care Team Providers Care Magician/Illusionist Name Role Phone Dyllan Pulido MD Unavailable Jasper Rubalcava MD Unavailable [phone] Melissa Kunz NP Primary Care Provider [phone] Desiree Horvath MD Primary Care Provider + Encounter Details Date Type Department Care Team (Late st Contact Info) Description 10/31/[address] [facility] Family Medicine - [place] [address] [place] [address] Ren[place], [facility] Provider appointment needed Social History Tobacco Use Types Packs/Day Years Used Date Smoking Tobacco: Former Cigarettes 1 40 0 04/22/1979 - 04/22/2019 Passive Smoke Exposure: Past Smokeless Tobacco: Never Comments:former smoker Alcohol Use Standard Drinks/Week Comments Yes 0 (1 standard drink = 0.6 oz pur e alcohol) occassional beer with dinner PHQ-2 Answer Date Recorded Patient Health Questionnaire-2 Score 0 12/16/2022 Comments No Sex and Gender Information Value Date Recorded Sex Assigned at Female 09/04/2024 10:05 AM COMPUTER SPECIALIST Legal Sex Female 9:10 AM CDT Gender Identity Female 08/28/2021 3:59 PM COMPUTER SPECIALIST Sexual Orientation Straight 08/28/2021 3: 59 PM COMPUTER SPECIALIST documented as of this encounter Plan of Treatment Upcoming Encounters Date Type Department Care Team (Late st Contact Info) Description 09/17/2024 12:45 PM COMPUTER SPECIALIST Office Visit [facility] Physical Therapy [address] [place], [place] [phone] Desiree Horvath MD [address] [place] [phone] Luh Barry, PT [address] [place] [place] [address] 12/03/2024 10:10 AM CDT Office Visit [facility] Family Medicine - [place] [address] [place] [address] Desiree Horvath MD [address] [place] [address] 01/15/2025 10:15 AM CDT Appointment [facility] [address] [place] [address] Winston Javed DO [address] [facility] [address] [place] [address] 01/21/2025 10:00 AM CDT Appointment [facility] Ultrasound [address] [place] [address] Kenyon Butt MD [address] [facility] [place] [address] 02/20/2025 9:30 AM CDT [facility] [address] [place] [address] Azra Geronimo, CAR DISPATCHER-C [address] [facility]. [address] [place] [address] 03/05/2025 8:20 AM CDT Office Visit [facility] Multispecialty Care - [facility] [address] [place] [address] Winstno Javed DO [address] [place] [address] documented as of this encounter Visit Diagnoses Not on filedocumented in this encounter Additional Health Concerns Assessment Noted Time PHQ-9 Depression Total Score: 3 11/19/19 21 10:26 AM CDT documented as of this encounter Care Teams Magician/Illusionist Relationship Specialty Start Date End Date Melissa Kunz NP [address] [place] [address] PCP - General NURSE PRACTITIONER 04/21/21 03/17/24 Desiree Horvath MD [address] [place] [address] PCP - General 03/18/24 Dyllan Pulido MD CARDIOVASCULAR DISEASE 11/18/20 Jasper Rubalcava MD GASTROENTEROLOGY 11/18/20 documented as of this encounter
--- OUTSIDE RECORDS SUMMARY | 2024-09-14 01:49 | XMS_ITS | Encounter Summary ---
Author Organization [facility] Address [address] [place] [address] Care Team Providers Care Package Car Driver Name Role Phone Unavailable Primary Care Provider Unavailabl e Encounter Details Date Type Department Care Team (Late st Contact Info) Description 06/21/2019 Lab Requisition [facility] [address] [place] [phone] Erickson White MD [address] [place] [address] Social History Tobacco Use Types Packs/Day Years Used Date Smoking Tobacco: Never Assessed Sex and Gender Information Value Date Recorded Sex Assigned at Not on file Gender Identity Not on file Sexual Orientation Not on file documented as of this encounter Plan of Treatment Not on file documented as of this encounter Procedures Procedure Name Priority Date/Time Associated Diagnosis Comments DERMATOPATHOLOGY Routine 06/20/2019 12:0 0 AM CDT documented in this encounter Results * DERMATOPATHOLOGY (06/20/2019 12:00 AM CDT) Case Report Dermatopathology Report ? Case: [id number] ? Authorizing Provider: ??Erickson White MD ?Collected: ? 06/20/2019 12:00 AM ? Ordering Location: ? [facility] ?Received: ?06/21/2019 12:46 PM ? Pathologist: ? Colleen Zayas MD ? Specimens: ?? A) - Skin, right upper inner thigh ? B) - Skin, right lower abdomen right of midline ? C) - Skin, right med post mid thigh ? 10:39 PM [facility] DERMATOPATHOLOGY [facility]ORATORY Final Diagnosis Specimen A. SKIN, right upper inner thigh: SUPERFICIAL PERIVASCULAR LYMPHOCYTIC INFILTRATE WITH EOSINOPHILS (L27.0) (see microscopic description and comment) Specimen B. SKIN, right lower abdomen right of midline: ACTINIC KERATOSIS, ACANTHOLYTIC AND LICHENOID TYPES, TRAUMATIZED (L57.0) Specimen C. SKIN, right med post mid thigh: BENIGN VERRUCOUS KERATOSIS, INFLAMED (L82.1) (see microscopic description) 10:39 PM [facility] DERMATOPATHOLOGY [facility]ORATORY Clinical History A: R/O Betts's vs dermatitis. B: R/O BCC. C: R/O Betts's vs dermatitis. 10:39 PM [facility] DERMATOPATHOLOGY [facility]ORATORY Gross Description Specimen A: Received is one formalin filled container labeled with the patient's name and designated right upper inner thigh. The specimen consists of a shave biopsy measuring [id number]. Jar 0. Specimen B: Received is one formalin filled container labeled with the patient's name and designated right lower abdomen right of midline. The specimen consists of a shave biopsy measuring [id number]. Jar 0. Specimen C: Received is one formalin filled container labeled with the patient's name and designated right med post mid thigh. The specimen consists of a shave biopsy measuring [id number]. Jar 0. 10:39 PM [facility] DERMATOPATH[facility]Y [facility]OR[facility]ORY Microscopic Description Specimen A. SKIN, right upper inner thigh: Sections show focal parakeratosis with perivascular and interstitial infiltrate including lymphocytes and eosinophils. Additional deeper sections were obtained and reviewed. [place] methenamine silver (GMS) stain does not highlight fungal hyphae. Specimen B. SKIN, right lower abdomen right of midline: Excoriation is present. There is focal parakeratosis. The lower half of the epidermis shows disorderly maturation of keratinocytes with nuclear pleomorphism. Focally there is a suprabasilar cleft with acantholytic cells. The dermis shows a band-like, chronic inflammatory infiltrate with occasional apoptotic keratinocytes and some basal vacuolar alteration. Specimen C. SKIN, right med post mid thigh: Sections show hyperkeratosis, papillomatosis, hypergranulosis, and acanthosis. Inflammatory cells are present within the dermis. These histological findings can be seen in a verruca vulgaris or a seborrheic keratosis. Additional deeper sections were obtained and reviewed. 10:39 PM [facility] DERMATOPATHOLOGY [facility]ORATORY AP Comment Specimen A. SKIN, right upper inner thigh: These histological findings are often seen in hypersensitivity reactions. 10:39 PM [facility] DERMATOPATHOLOGY [facility]ORATORY Disclaimer An external and internal positive and negative controls are appropriate for the histochemical, immunohistochemical and immunofluorescence stain(s) in this case (if any), except where stated explicitly. The performance characteristics of the stain(s) cited in this report were developed and its performance characteristic determined by the Dermatopathology Laboratory at [facility], directed by Dr. Paulina Farrell. These tests need not be, and therefore are not, approved by the [place] Food and Drug Administration. The tests are used for clinical purposes. Billing Codes Specimen Charges Stain Charges 16417 [address]75[address] 73596 1 1 1 03320 1 9 10:39 PM [facility] DERMATOPATHOLOGY LABORATORY Embedded Images 9 10:39 PM [facility] DERMATOPATHOLOGY LABORATORY Pathology/Cytology TISSUE SPECIMEN FROM SKIN / Unknown 06/20/2019 06/21/2019 12:46 PM CDT Miscellaneous samples (specimen) TISSUE SPECIMEN FROM SKIN / Unknown 06/20/2019 06/21/2019 12:46 PM CDT Miscellaneous samples (specimen) TISSUE SPECIMEN FROM SKIN / Unknown 06/20/2019 06/21/2019 12:46 PM CDT Erickson White MD LAB - PATHOLOGY/CYTO LOGY ORDERABLES DERMATOPATHOLOGY LABORATORY [facility] - Department of Dermatology [address] [place] [address], [address] Floor Lab [address] [phone] documented in this encounter Visit Diagnoses Not on filedocumented in this encounter
--- OUTSIDE RECORDS SUMMARY | 2024-09-14 01:49 | XMS_ITS | Encounter Summary ---
Author Organization [facility] Address [address] [place] [address]. [place] [address] [place] [address] Care Team Providers Care Certified Flight Instructor Name Role Phone Dyllan Pulido MD Unavailable Jasper Rubalcava MD Unavailable Melissa Kunz NP Primary Care Provider [phone] Desiree Horvath MD Primary Care Provider + Encounter Details Date Type Department Care Team (Late st Contact Info) Description 05/14/2021 GOOM Message Enc [facility] Family Medicine - [place] [address] [place] [address] Renetta, [facility] Provider results Social History Tobacco Use Types Packs/Day Years Used Date Smoking Tobacco: Former Cigarettes 1 40 0 04/22/1979 - 04/22/2019 Smokeless Tobacco: Never Comments:The provider can pr ovide you with more information about quitting. Alcohol Use Standard Drinks/Week Comments Yes 0 (1 standard drink = 0.6 oz pur e alcohol) occassional beer with dinner PHQ-2 Answer Date Recorded PHQ-2 Score - If the patient scores above 3, please move on to questions 3-9 0 11/18/2020 Comments No Sex and Gender Information Value Date Recorded Sex Assigned at Female 09/04/2024 10:05 AM MIXER MACHINE FEEDER Legal Sex Female 9:10 AM CDT Gender Identity Female 08/28/2021 3:59 PM MIXER MACHINE FEEDER Sexual Orientation Straight 08/28/2021 3: 59 PM MIXER MACHINE FEEDER COVID-19 Exposure Response Date Recorded In the last month, have you been in contact with someone who was confirmed or suspected to have Coronavirus / COVID-19? No / Unsure 04/21/2021 9:37 AM CDT documented as of this encounter Plan of Treatment Upcoming Encounters Date Type Department Care Team (Late st Contact Info) Description 09/17/2024 12:45 PM MIXER MACHINE FEEDER Office Visit [facility] Physical Therapy [address] [place] [address] Desiree Horvath MD [address] [place] [address] Luh Barry, PT 1 [place] [address] 12/03/2024 10:10 AM CDT Office Visit [facility] Family Medicine - [place] [address] [place] [address] Desiree Horvath MD [address] [facility] [address] [place] [address] 01/15/2025 10:15 AM CDT Appointment [facility] [address] [place] [address] Winston Javed DO 3 [facility] [address] [place] [address] 01/21/2025 10:00 AM CDT Appointment [facility] Ultrasound [address] [place] [address] Kenyon Butt MD [facility]. [address] [place] [address] 02/20/2025 9:30 AM CDT Office Visit [facility] [place] [place] [address] Azra Geronimo, SCREWMAKER AUTOMATIC-C [facility]. [address] [place] [address] 03/05/2025 8:20 AM CDT Office Visit [facility] Multispecialty Care - [facility] [address] [facility] [address] [place] [address] Winston Javed DO 3 [facility] [address] [place] [address] documented as of this encounter Visit Diagnoses Not on filedocumented in this encounter Additional Health Concerns Infection Onset Date Last Indicated Resolved Time COVID-19 Rule Out 09/03/2021 09/03/2021 09/03/2021 2:09 PM MIXER MACHINE FEEDER COVID-19 Rule Out 04/12/2023 04/12/2023 04/12/2023 1:26 PM CDT COVID-19 Confirmed 04/12/2023 04/12/2023 12:32 AM CDT Assessment Noted Time PHQ-9 Depression Total Score: 3 11/19/19 21 10:26 AM CDT documented as of this encounter Care Teams Certified Flight Instructor Relationship Specialty Start Date End Date Melissa Kunz NP [address] [place] [address] PCP - General NURSE PRACTITIONER 04/21/21 03/17/24 Desiree Horvath MD [address] [place] [address] PCP - General 03/18/24 Dyllan Pulido MD CARDIOVASCULAR DISEASE 11/18/20 Jasper Rubalcava MD GASTROENTEROLOGY 11/18/20 documented as of this encounter
--- OUTSIDE RECORDS SUMMARY | 2024-09-14 01:49 | XMS_ITS | Encounter Summary ---
Author Organization [facility] Address [address] [place] [address]. [place], [place] [address] [place] [address] Care Team Providers Care Soyfreeze Operator Name Role Phone Dyllan Pulido MD Unavailable Jasper Rubalcava MD Unavailable [phone] Desiree Horvath MD Primary Care Provider + Reason for Referral * Physical Medicine (Routine) - Authorized Specialty Diagnoses / Procedures Referred By Kandi collins Referred To Contact PHYSICAL THERAPY / [facility] Physical Therapy Diagnoses Acute bilateral low back pain without sciatica Procedures OFFICE/OUTPATIENT NEW LOW MDM 30-44 MINUTES OFFICE/OUTPT VISIT,NEW,LEVL IV OFFICE/OUTPT VISIT,NEW,LEVL V OFFICE/OUTPT VISIT,EST,LEVL III OFFICE/OUTPT VISIT,EST,LEVL IV OFFICE/OUTPT VISIT,EST,LEVL V Desiree Horvath MD [address] [place] [address] Phone: tel: fax: [facility] Physical Therapy [address] [place] [address] Phone: tel: fax: Referral ID Status Reason Start Date Expiration Date Visits Requested Visits Authorized [id number] Authorized Physical Therapy 09/12/2024 10/12/2025 1 1 CARDIAC CATH Reason for Visit * Reason Onset Date Comments Pain 09/12/2024 Encounter Details Date Type Department Care Team (Late st Contact Info) Description 09/12/2024 Telephone [facility] Family Medicine - [place] [address] [place] [id number] Desiree Horvath MD [address] [place] [address] Pain Social History Tobacco Use Types Packs/Day Years [...] Sex Assigned at Female 09/04/2024 10:05 AM RN CARDIAC CATH Legal Sex Female 9:10 AM CDT Gender Identity Female 08/28/2021 3:59 PM RN CARDIAC CATH Sexual Orientation Straight 08/28/2021 3: 59 PM RN CARDIAC CATH documented as of this encounter Progress Notes * Eli Hernandez MA - 09/12/2024 1:48 PM CST Patient informed and voiced understanding. She will go over to the ER CARDIAC CATH * Desiree Horvath MD - 09/12/2024 1:41 PM CST Well sometimes the back pain can radiate around and feel like it is in the abdomen, but if it is this severe, she might benefit from an ED Visit for evaluating this more thoroughly. She may need additional imaging to rule out some other causes. CARDIAC CATH * Eli Hernandez MA - 09/12/2024 1:08 PM CST She stated her pain in the left side of her abdomen is SEVERE. She has not slept, the Tramadol or cyclobenzaprine is not touching the pain. She wants to know why if nothing is wrong why is she in this much pain. She can't get comfortable in any position CARDIAC CATH * Desiree Horvath MD - 09/12/2024 12:37 PM CST I have entered the order. Please let her know and if anything else changes to give another update. Thanks! CARDIAC CATH * Eli Hernandez MA - 09/12/2024 12:20 PM CST I spoke with the patient and she denies and bowel issues, no fever or chills. She does have Tramadol and cyclobenzaprine at home. She is agreeable to PT in [facility]. CARDIAC CATH * Desiree Horvath MD - 09/12/2024 11:37 AM CST Please confirm bowel habits are normal and no fevers, chills. Does she still have tramadol and cyclobenzaprine. Would she be agreeable to PT order? CARDIAC CATH * Rajesh Bui - 09/12/2024 8:57 AM CST Pt is in a lot of pain since removing snow and now pain has moved to her abdomen, pls call pt and dana craig Dr. I meant to send this through the Nurse Pool first. CARDIAC CATH CARDIAC CATH documented in this encounter Plan of Treatment Upcoming Encounters Date Type Department Care Team (Late st Contact Info) Description 09/17/2024 12:45 PM RN CARDIAC CATH Office Visit [facility] Physical Therapy [address] [place] [address] Desiree Horvath MD [address] [place] [id number] Luh Barry, PT 1 [place] [address] 12/03/2024 10:10 AM CDT Office Visit [facility] Family Medicine - [place] [address] [place] [address] Desiree Horvath MD [address] [place] [address] 01/15/2025 10:15 AM CDT Appointment [facility] [address] [place] [address] Winston Javed DO 3 [facility] [address] [place] [address] 01/21/2025 10:00 AM CDT Appointment [facility] Ultrasound [address] [place] [address] Kenyon Butt MD [facility]. [address] [place] [address] 02/20/2025 9:30 AM CDT Office Visit [facility] [address] [place] [address] Azra Geronimo, BIOTECHNICIAN-C [facility]. [address] [place] [address] 03/05/2025 8:20 AM CDT Office Visit [facility] Multispecialty Care - [facility] [address] [facility] [address] [place] [address] JavedRamonsarahDO [address] [facility] [address] [place] [address] Scheduled Referrals Name Type Priority Associated Diagnoses Orde r Schedule Ambulatory referral to Physical Therapy Referral Routine Acute bilateral low back pain without sciatica Ordered: 09/12/2024 documented as of this encounter Visit Diagnoses Diagnosis Acute bilateral low back pain without sciatica- Primary documented in this encounter Additional Health Concerns Assessment Noted Time PHQ-9 Depression Total Score: 3 11/19/19 21 10:26 AM CDT documented as of this encounter Care Teams Soyfreeze Operator Relationship Specialty Start Date End Date Desiree Horvath MD [address] [facility] [address] [place] [address] PCP - General 03/18/24 Dyllan Pulido MD CARDIOVASCULAR DISEASE 11/18/20 Jasper Rubalcava MD GASTROENTEROLOGY 11/18/20 documented as of this encounter
--- OUTSIDE RECORDS SUMMARY | 2024-09-14 01:49 | XMS_ITS | Encounter Summary ---
Author Organization [facility] Address [address] [place] [address]. [place] [address] [place] [address] Care Team Providers Care Office Technician Name Role Phone Dyllan Pulido MD Unavailable Jasper Rubalcava MD Unavailable Melissa Kunz NP Primary Care Provider [phone] Desiree Horvath MD Primary Care Provider + Encounter Details Date Type Department Care Team (Late st Contact Info) Description 09/16/2023 [facility] Message Enc [facility] Family Medicine - [place] [address] [place] [address] Renetta, [facility] Provider Appointment needed Social History Tobacco Use Types Packs/Day [...] Sex Assigned at Female 09/04/2024 10:05 AM CHROME PLATER Legal Sex Female 9:10 AM CDT Gender Identity Female 08/28/2021 3:59 PM CHROME PLATER Sexual Orientation Straight 08/28/2021 3: 59 PM CHROME PLATER documented as of this encounter Plan of Treatment Upcoming Encounters Date Type Department Care Team (Late st Contact Info) Description 09/17/2024 12:45 PM CHROME PLATER Office Visit [facility] Physical Therapy [address] [place], [place] [phone] Desiree Horvtah MD [address] [place] [address] Luh Barry, PT [address] [facility] [address] 12/03/2024 10:10 AM CDT Office Visit [facility] Family Medicine - [place] [address] [place] [address] Desiree Horvath MD [address] [place] [address] 01/15/2025 10:15 AM CDT Appointment [facility] [address] [facility] [place] [address] Winston Javed DO 3 [facility] [address] [place] [address] 01/21/2025 10:[address] [facility] Ultrasound [address] [place] [address] Kenyon Butt MD [facility]. [address] [place] [address] 02/20/2025 9:30 AM CDT [facility] [address] [place] [address] Azra Geronimo, SIMULATION EDUCATOR-C [facility]. [address] [place] [address] 03/05/2025 8:20 AM CDT Office Visit [facility] Multispecialty Care - [facility] [address] [facility] [address] [place] [address] Winston Javed DO [address] [facility] [address] [place] [address] documented as of this encounter Visit Diagnoses Not on filedocumented in this encounter Additional Health Concerns Assessment Noted Time PHQ-9 Depression Total Score: 3 11/19/19 21 10:26 AM CDT documented as of this encounter Care Teams Office Technician Relationship Specialty Start Date End Date Melissa Kunz NP [address] [place] [address] PCP - General NURSE PRACTITIONER 04/21/21 03/17/24 Desiree Horvath MD [address] [place] [address] PCP - General 03/18/24 Dyllan Pulido MD CARDIOVASCULAR DISEASE 11/18/20 Jasper Rubalcava MD GASTROENTEROLOGY 11/18/20 documented as of this encounter
--- OUTSIDE RECORDS SUMMARY | 2024-09-14 01:49 | XMS_ITS | Encounter Summary ---
Author Organization [facility] Address [address] [place] [address]. [place] [address] [place] [address] Care Team Providers Care Manager Warehouse Name Role Phone Dyllan Pulido MD Unavailable Jasper Rubalcava MD Unavailable [phone] Melissa Kunz NP Primary Care Provider [phone] Desiree Horvath MD Primary Care Provider + Encounter Details Date Type Department Care Team (Late st Contact Info) Description 09/03/2021 Covercake Message Enc [facility] Family Medicine - [place] [address] [place] [address] Exo [employer], [facility] Provider Covid results Social History Tobacco Use Types Packs/Day [...] Sex Assigned at Female 09/04/2024 10:05 AM CORPORATE EXECUTIVE Legal Sex Female 9:10 AM CDT Gender Identity Female 08/28/2021 3:59 PM CORPORATE EXECUTIVE Sexual Orientation Straight 08/28/2021 3: 59 PM CORPORATE EXECUTIVE COVID-19 Exposure Response Date Recorded In the last month, have you been in contact with someone who was confirmed or suspected to have Coronavirus / COVID-19? No / Unsure 09/01/2021 1:36 PM CORPORATE EXECUTIVE documented as of this encounter Plan of Treatment Upcoming Encounters Date Type Department Care Team (Late st Contact Info) Description 09/17/2024 12:45 PM CORPORATE EXECUTIVE Office Visit [facility] Physical Therapy [address] [place] [address] Desiree Horvath MD [address] [place] [address] Luh Barry, PT 1 [place] [address] 12/03/2024 10:10 AM CDT Office Visit [facility] Family Medicine - [place] [address] [place] [address] Desiree Horvath MD [address] [facility] [address] [place] [address] 01/15/2025 10:15 AM CDT Appointment [facility] [address] [place] [address] Winston Javed DO 3 [facility] [address] [place] [address] 01/21/2025 10:[address] [facility] Ultrasound [address] [place], [place] [id number] Kenyon Butt MD [facility]. [address] [place] [address] 02/20/2025 9:30 AM CDT Office Visit [facility] [address] [place] [address] Azra Geronimo, TABLET MAKING MACHINE OPERATOR HELPER-C [facility]. [address] [place] [address] 03/05/2025 8:20 AM CDT Office Visit [facility] Group Multispecialty Care - [facility] [address] [facility] [place] [address] Winston Javed DO [address] [facility] [address] [place] [address] documented as of this encounter Visit Diagnoses Not on filedocumented in this encounter Additional Health Concerns Infection Onset Date Last Indicated Resolved Time COVID-19 Rule Out 09/03/2021 09/03/2021 09/03/2021 2:09 PM CORPORATE EXECUTIVE COVID-19 Rule Out 04/12/2023 04/12/2023 04/12/2023 1:26 PM CDT COVID-19 Confirmed 04/12/2023 04/12/2023 12:32 AM CDT Assessment Noted Time PHQ-9 Depression Total Score: 3 11/19/19 21 10:26 AM CDT documented as of this encounter Care Teams Manager Warehouse Relationship Specialty Start Date End Date Melissa Kunz NP [address] [place] [address] PCP - General NURSE PRACTITIONER 04/21/21 03/17/24 Desiree Horvath MD [address] [place] [address] PCP - General 03/18/24 Dyllan Pulido MD CARDIOVASCULAR DISEASE 11/18/20 Jasper Rubalcava MD GASTROENTEROLOGY 11/18/20 documented as of this encounter
--- OUTSIDE RECORDS SUMMARY | 2024-09-14 01:49 | XMS_ITS | Encounter Summary ---
Author Organization [facility] Address [address] [place] [address]. [place] [address] [place] [address] Care Team Providers Care Cover Inspector Name Role Phone Dyllan Pulido MD Unavailable Jasper Rubalcava MD Unavailable [phone] Melissa Kunz NP Primary Care Provider [phone] Desiree Horvath MD Primary Care Provider + Encounter Details Date Type Department Care Team (Late st Contact Info) Description 12/11/2023 ImageSpiket Message Enc [facility] Family Medicine - [place] [address] [facility] [address] [place], [place] [address] Melissa Kunz NP [address] [place], [place] [address] Pills for migraine Social History Tobacco Use Types Packs/Day Years Used Date Smoking Tobacco: Former Cigarettes 1 40 0 04/22/1979 - 04/22/2019 Passive Smoke Exposure: Past Smokeless Tobacco: Never Comments:former smoker Alcohol Use Standard Drinks/Week Comments Yes 0 (1 standard drink = 0.6 oz pur e alcohol) occassional beer with dinner PHQ-2 Answer Date Recorded Patient Health Questionnaire-2 Score 0 11/17/2023 Comments No Sex and Gender Information Value Date Recorded Sex Assigned at Female 09/04/2024 10:05 AM BOOTMAKER Legal Sex Female 9:10 AM CDT Gender Identity Female 08/28/2021 3:59 PM BOOTMAKER Sexual Orientation Straight 08/28/2021 3: 59 PM BOOTMAKER documented as of this encounter Progress Notes * Eli Hernandez MA - 12/12/2023 4:27 PM CDT Medication sent to [facility]. * Melissa Kunz NP - 12/12/2023 1:38 PM CDT Sounds great thanks * Eli Hernandez MA - 12/12/2023 11:28 AM CDT I spoke with patient and she was referring to the Rizatriptan. She is currently out and has a horrible migraine. I informed the patient that she will not get the medication for awhile with mail order. I sent in a refill at [facility] and advised the patient to call me after she picks it up and I will send in a new rx to [facility] for her. She voiced understanding * Melissa Kunz NP - 12/12/2023 11:05 AM CDT Will you follow up with about her message. documented in this encounter Plan of Treatment Upcoming Encounters Date Type Department Care Team (Late st Contact Info) Description 09/17/2024 12:45 PM BOOTMAKER Office Visit [facility] Physical Therapy [address] [place] [address] Desiree Horvath MD [address] [place], [place] [address] Luh Barry, PT 1 [facility] [place] [address] 12/03/2024 10:10 AM CDT Office Visit [facility] Family Medicine - [place] [address] [place] [address] Desiree Horvath MD [address] [place] [address] 01/15/2025 10:15 AM CDT Appointment [facility] [address] [place] [address] Winston Javed DO 3 [facility] [address] [place] [address] 01/21/2025 10:00 AM CDT Appointment [facility] Ultrasound [address] [place] [address] Kenyon Butt MD [address] [facility]. [address] [place] [address] 02/20/2025 9:30 AM CDT Office Visit [facility] [address] [place] [address] Azra Geronimo, DOLL WIGS HACKLER-C [address] [facility]. [address] [place] [address] 03/05/2025 8:20 AM CDT Office Visit [facility] Multispecialty Care - [facility] [address] [facility] [address] [place] [address] Winston Javed DO 3 [facility] [address] [place] [address] documented as of this encounter Visit Diagnoses Not on filedocumented in this encounter Additional Health Concerns Assessment Noted Time PHQ-9 Depression Total Score: 3 11/19/19 21 10:26 AM CDT documented as of this encounter Care Teams Cover Inspector Relationship Specialty Start Date End Date Melissa Kunz NP [address] [place] [address] PCP - General NURSE PRACTITIONER 04/21/21 03/17/24 Desiree Horvath MD [address] [place] [address] PCP - General 03/18/24 Dyllan Pulido MD CARDIOVASCULAR DISEASE 11/18/20 Jasper Rubalcava MD GASTROENTEROLOGY 11/18/20 documented as of this encounter
--- OUTSIDE RECORDS SUMMARY | 2024-09-14 01:49 | XMS_ITS | Encounter Summary ---
Author Organization [facility] Address [address] [place] [address]. [place] [address] [place] [address] Care Team Providers Care Sports Statistician Name Role Phone Dyllan Pulido MD Unavailable Jasper Rubalcava MD Unavailable [phone] Desiree Del Rio MD Primary Care Provider + Encounter Details Date Type Department Care Team (Late st Contact Info) Description 03/21/2024 MyChart Message Enc [facility] Family Medicine - [place] [address] [place], [place] [id number] Desiree Del Rio MD [address] [place] [address] No Poop Social History Tobacco Use Types Packs/Day Years Used Date Smoking Tobacco: Former Cigarettes 1967 Passive Smoke Exposure: Past Smokeless Tobacco: Never Comments:former smoker Alcohol Use Standard Drinks/Week Comments Yes 0 (1 standard drink = 0.6 oz pur e alcohol) occassional beer with dinner PHQ-2 Answer Date Recorded Patient Health Questionnaire-2 Score 0 02/17/2024 Comments No Sex and Gender Information Value Date Recorded Sex Assigned at Female 09/04/2024 10:05 AM FIRE CREW SPECIALIST Legal Sex Female 9:10 AM CDT Gender Identity Female 08/28/2021 3:59 PM FIRE CREW SPECIALIST Sexual Orientation Straight 08/28/2021 3: 59 PM FIRE CREW SPECIALIST documented as of this encounter Progress Notes * Eli Hernandez MA - 03/21/2024 1:28 PM CDT Patient informed. She stated she is not really in any pain at the moment. She will go have [facility] in [place] and see what that shows. * Desiree Del Rio MD - 03/21/2024 1:08 PM CDT We have two options. I can order an xray and we can see what it shows while she continues with miralax. If she prefers to go in for a CT right away (this is the better option if pain is worsening) then I think she should go through the ED. I will order the xray in case this is the direction she would like to go. documented in this encounter Plan of Treatment Upcoming Encounters Date Type Department Care Team (Late st Contact Info) Description 09/17/2024 12:45 PM FIRE CREW SPECIALIST Office Visit [facility] Physical Therapy [address] [place] [address] Desiree Del Rio MD [address] [place] [address] Luh Barry, PT 1 [place] [address] 12/03/2024 10:10 AM CDT Office Visit [facility] Family Medicine - [place] [address] [place] [address] Desiree Del Rio MD [address] [place] [address] 01/15/2025 10:15 AM CDT Appointment [facility] [place] [address] [place] [address] Winston Javed, [address] [facility] [address] [place] [address] 01/21/2025 10:00 AM CDT Appointment [facility] Ultrasound [address] [place] [address] Kenyon Butt MD Three [facility]. [address] [place] [address] 02/20/2025 9:30 AM CDT Office Visit [facility] [address] [place] [address] Azra Geronimo, IP ATTORNEY-C Three [facility]. [address] [place] [address] 03/05/2025 8:20 AM CDT Office Visit [facility] Multispecialty Care - [facility] [address] [facility] [address] [place] [address] Winston Javed DO [address] [facility] [address] [place] [address] documented as of this encounter Results * XR ABD FLAT+UPRIGHT (03/21/2024 2:16 PM CDT) Anatomical Region Laterality Modality Abdomen Radiographic Mago ging 03/21/2024 3:09 PM CDT Impressions 03/21/2024 3:10 PM CDT IMPRESSION: Few air-fluid levels involving the colon and small bowel on the upright radiograph. Findings could relate to ileus. No gaseous distention of the large or small bowel. Ordered By: DESIREE DEL RIO Interpreted By: Eric Dewitt MD, 03/21/2024 3:09 PM Narrative 03/21/2024 3:10 PM CDT Procedure(s): XR ABD FLAT+UPRIGHT Date of service: 03/21/2024 2:09 PM Provided clinical information: 73 years, Female, r/o SBO. constipation? ?? ABD PAIN AND BLOATING, NO BM FOR 1 WEEK Procedure and materials: Supine view the abdomen. Upright view the abdomen. Comparison studies: None. Findings: ?? On the upright view there few scattered air-fluid levels that are present in expected location the colon and small bowel. Findings may relate to an underlying ileus within the abdomen. No gaseous distention of the colon or small bowel is present. Procedure Note Eric Dewitt MD - 03/21/2024 Procedure(s): XR ABD FLAT+UPRIGHT Date of service: 03/21/2024 2:09 PM Provided clinical information: 73 years, Female, r/o SBO. constipation? ABD PAIN AND BLOATING, NO BM FOR 1 WEEK Procedure and materials: Supine view the abdomen. Upright view theabdomen. Comparison studies: None. Findings: On the upright view there few scattered air-fluid levels that are presentin expected location the colon and small bowel. Findings may relate to anunderlying ileus within the abdomen. No gaseous distention of the colon orsmall bowel is present. IMPRESSION: Few air-fluid levels involving the colon and small bowel on the uprightradiograph. Findings could relate to ileus. No gaseous distention of thelarge or small bowel. Ordered By: DESIREE DEL RIO Interpreted By: Eric Dewitt MD, 03/21/2024 3:09 PM us Desiere Del Rio MD GENERAL IMAGING Final Re sult documented in this encounter Visit Diagnoses Diagnosis Slow transit constipation- Primary Generalized abdominal pain Abdominal pain, generalized Slow transit constipation Generalized abdominal pain Abdominal pain, generalized documented in this encounter Additional Health Concerns Assessment Noted Time PHQ-9 Depression Total Score: 3 11/19/19 21 10:26 AM CDT documented as of this encounter Care Teams Sports Statistician Relationship Specialty Start Date End Date Desiree Del Rio MD [address] [place] [address] PCP - General 03/18/24 Dyllan Pulido MD CARDIOVASCULAR DISEASE 11/18/20 Jasper Rubalcava MD GASTROENTEROLOGY 11/18/20 documented as of this encounter
--- OUTSIDE RECORDS SUMMARY | 2024-09-14 01:49 | XMS_ITS | Encounter Summary ---
Author Organization [facility] Address [address] [facility] [place] [address] Care Team Providers Care Business Performance Advisor Name Role Phone Unavailable Primary Care Provider Unavailabl e Encounter Details Date Type Department Care Team (Late st Contact Info) Description 09/17/2020 Lab Requisition [facility] [address] [facility] [place] [id number] Erickson White MD [address] [place] [address] Social History Tobacco Use Types [...] Priority Date/Time Associated Diagnosis Comments DERMATOPATHOLOGY Routine 09/16/2020 12:0 0 AM BRASS MOLDER HELPER documented in this encounter Results * DERMATOPATHOLOGY (09/16/2020 12:00 AM BRASS MOLDER HELPER) Case Report Dermatopathology Report ? Case: [id number] ? Authorizing Provider: ??Erickson White MD ?Collected: ? 09/16/2020 12:00 AM ? Ordering Location: ? [facility] ?Received: ?09/17/2020 12:30 PM ? Pathologist: ? Tina Farrell MD ? Specimen: ?Skin, right mid paraspinal back ? 4:59 PM [facility] DERMATOPATHOLOGY LABORATORY Final Diagnosis Specimen A. SKIN, right mid paraspinal back: LICHEN PLANUS-LIKE KERATOSIS (BENIGN LICHENOID KERATOSIS) (L82.1) EPIDERMAL NECROSIS SUGGESTIVE OF EXCORIATION (L98.499) 4:59 PM [facility] DERMATOPATHOLOGY LABORATORY Clinical History R/O SCC, Betts's. 4:59 PM [facility] DERMATOPATHOLOGY LABORATORY Gross Description Specimen A: Received is one formalin filled container labeled with the patient's name and designated right mid paraspinal back. The specimen consists of a shave biopsy measuring [id number]. Jar 0. 4:59 PM [facility] DERMATOPATHOLOGY LABORATORY Microscopic Description Specimen A. SKIN, right mid paraspinal back: The epidermis is mildly acanthotic. There is a lichenoid infiltrate with vacuolar changes of basilar keratinocytes and scattered necrotic keratinocytes. The epidermis is focally necrotic and covered with a scale-crust. There is fibrin at the base. 4:59 PM [facility] DERMATOPATHOLOGY LABORATORY Disclaimer An external and internal positive and negative controls are appropriate for the histochemical, immunohistochemical and immunofluorescence stain(s) in this case (if any), except where stated explicitly. The performance characteristics of the stain(s) cited in this report were developed and its performance characteristic determined by the Dermatopathology Laboratory at [facility], directed by Dr. Paulina Farrell. These tests need not be, and therefore are not, approved by the [place] Food and Drug Administration. The tests are used for clinical purposes. Billing Codes Specimen Charges Stain Charges 26037 1 1 4:59 PM BRASS MOLDER HELPER DERMATOPATHOLOGY LABORATORY Embedded Images 1 4:59 PM BRASS MOLDER HELPER DERMATOPATHOLOGY LABORATORY Pathology/Cytolog y TISSUE SPECIMEN FROM SKIN / Unknown 09/16/2020 09/17/2020 12:30 PM BRASS MOLDER HELPER Erickson White MD LAB - PATHOLOGY/CYTO LOGY ORDERABLES DERMATOPATHOLOGY LABORATORY [facility] - Department of Dermatology [facility] Medicine [address] [place] [address], [address] [phone] documented in this encounter Visit Diagnoses Not on filedocumented in this encounter
--- OUTSIDE RECORDS SUMMARY | 2024-09-14 01:49 | XMS_ITS | Continuity of Care Document ---
Author Organization [facility] Address [address] [place] [address] [place] [address] Phone Care Team Providers Care Vamp Cut Out Worker Name Role Phone Eliazar Isabel Unavailable Unavailable Procedures Procedure Date Eye Exam, New Patient Ophthalmoscopy Advance Directives Directive Yes / No Effective Date File Name No Information Encounters Encounter Description Practice Location Reason(s) For Visit Diagnoses Date Provider Providers Copied on Encounter [facility], [address], [place], [place], [id number], [place] tel:[phone] [facility] No Information 0 8-201 0 Chalo Perea. [address] [place], [address], [place]. tel:[phone] Referring Provider: Bertha Peterson OD, [address] [place], [address]. tel:[phone] Family History Family Member Type Diagnosis Age At Onset No Information Payers Payer name Insurance type Covered constitution party ID Authoriza tion(s) No Information Social History Type Description Quantity Date Captured Comments Sex Female Smoking Status No Information Chief Complaint And Reason For Visit No Information Reason For Referral Reason For Referral No Information History Of Present Illness Encounter Date Complaint History Of Prese nt Illness No Information Functional Status Date Functional Assessmen t No Information Instructions Date Instruction Additional Infor mation No Information Assessments Type Assessment Date No Information Patient Care Teams Name Effective Dates (start - stop) Status Members No Information
--- OUTSIDE RECORDS SUMMARY | 2024-09-14 01:49 | XMS_ITS | Referral Summary ---
Author Organization [facility] [place] [address] Address [address] [place] [address] Care Team Providers Care Drug Discovery Informatics Specialist Name Role Phone Melissa Kunz MD Primary Care Provider [phone] Allergies Active Allergy Reactions Criticality Noted Date Comments Neomycin Rash Medium 12/28/2018 Ielkiwlt-Oywirkkpk-Nrdatehqho Rash Medium 2019 Eyinlxxo-Giojjukjou-Yykrqtkhw Rash Medium 2018 Penicillins Nausea & Vomiting [...] Date Hypertension 06/21/2014 Overview (11/25/2016): Hypertensive disorder Social History Tobacco Use Types Packs/Day Years [...] on file Legal Sex Female 12:04 AM MACHINE STRIPPER CUTTER Gender Identity Female 11/27/2019 3:36 PM CDT Sexual Orientation Straight 11/27/2019 3: 36 PM CDT Last Filed Vital Signs Vital Sign Reading [...] 12/09/2021 9:09 AM CDT Plan of Treatment Not on file Insurance MEDICARE FOR LIFE Care Teams Drug Discovery Informatics Specialist Relationship Specialty Start Date End Date Melissa Kunz MD PCP - General Nurse Practitioner 06/03/21
--- OUTSIDE RECORDS SUMMARY | 2024-09-14 01:49 | XMS_ITS | Encounter Summary ---
Author Organization [facility] Address [address] [place] [address]. [place] [address] [place] [address] Care Team Providers Care Bag Press Operator Name Role Phone Swapnil Lux MD Primary [facility] Dyllan Mishra MD Unavailable Jasper Rubalcava MD Unavailable [phone] Melissa Kunz NP Primary Care Provider [phone] Desiree Horvath MD Primary Care Provider + Encounter Details Date Type Department Care Team (Late st Contact Info) Description 06/03/2020 MyChart Message Enc [facility] Family Medicine - [place] [address] [place] [address] Swapnil Lux MD RE: RE: Follow Up/Update Social History Tobacco Use Types Packs/Day Years Used Date Smoking Tobacco: Former Cigarettes 1 40 0 04/22/1979 - 04/22/2019 Smokeless Tobacco: Never Alcohol Use Standard Drinks/Week Comments Never 0 (1 standard drink = 0.6 oz pur e alcohol) Comments Unknown Sex and Gender Information Value Date Recorded Sex Assigned at Female 09/04/2024 10:05 AM CONTINUOUS CRUSHER OPERATOR Legal Sex Female 9:10 AM CDT Gender Identity Female 08/28/2021 3:59 PM CONTINUOUS CRUSHER OPERATOR Sexual Orientation Straight 08/28/2021 3: 59 PM CONTINUOUS CRUSHER OPERATOR COVID-19 Exposure Response Date Recorded In the last month, have you been in contact with someone who was confirmed or suspected to have Coronavirus / COVID-19? No / Unsure 06/06/2020 10:54 AM CDT documented as of this encounter Plan of Treatment Upcoming Encounters Date Type Department Care Team (Late st Contact Info) Description 09/17/2024 12:45 PM CONTINUOUS CRUSHER OPERATOR Office Visit [facility] Physical Therapy [address] [place] [address] Desiree Horvath MD [address] [place] [address] Luh Barry, PT 1 [place] [address] 12/03/2024 10:10 AM CDT Office Visit [facility] Family Medicine - [place] [address] [place] [address] Desiree Horvath MD [address] [place] [address] 01/15/2025 10:15 AM CDT Appointment [facility] CT [address] [place] [address] Winston Javed DO [address] [facility] [address] [place] [address] 01/21/2025 10:00 AM CDT Appointment [facility] Ultrasound [address] [place] [address] Kenyon Butt MD Three [facility]. [address] [place] [address] 02/20/2025 9:30 AM CDT Office Visit [facility] [address] [place] [address] Azra Geronimo, TILTING HEAD BAND SAWYER-C [address] [place] [address] 03/05/2025 8:20 AM CDT Office Visit [facility] Multispecialty Care - [facility] [address] [facility] [address] [place] [address] Winston Javed DO [address] [facility] [address] [place] [address] documented as of this encounter Visit Diagnoses Not on filedocumented in this encounter Additional Health Concerns Infection Onset Date Last Indicated Resolved Time COVID-19 Rule Out 09/03/2021 09/03/2021 09/03/2021 2:09 PM CONTINUOUS CRUSHER OPERATOR COVID-19 Rule Out 04/12/2023 04/12/2023 04/12/2023 1:26 PM CDT COVID-19 Confirmed 04/12/2023 04/12/2023 12:32 AM CDT documented as of this encounter Care Teams Bag Press Operator Relationship Specialty Start Date End Date Swapnil Lux MD PCP - General FAMILY MEDICINE SPORTS MEDICINE 03/31/20 04/20/21 Melissa Kunz NP [address] [place] [address] PCP - General NURSE PRACTITIONER 04/21/21 03/17/24 Desiree Horvath MD [address] [place] [address] PCP - General 03/18/24 Dyllan Pulido MD CARDIOVASCULAR DISEASE 11/18/20 Jasper Rubalcava MD GASTROENTEROLOGY 11/18/20 documented as of this encounter
--- OUTSIDE RECORDS SUMMARY | 2024-09-14 02:18 | XMS_ITS | Encounter Summary ---
Author Organization [facility] Address [address] [place] [address]. [place], [place] [address] [place] [address] Care Team Providers Care Fishing Rod Marker Name Role Phone Dyllan Pulido MD Unavailable Jasper Rubalcava MD Unavailable [phone] Desiree Horvath MD Primary Care Provider + Reason for Referral * Physical Medicine (Routine) - Authorized Specialty Diagnoses / Procedures Referred By Kandi collins Referred To Contact PHYSICAL THERAPY / [facility] Physical Therapy Diagnoses Acute bilateral low back pain without sciatica Procedures OFFICE/OUTPATIENT NEW LOW MDM 30-44 MINUTES OFFICE/OUTPT VISIT,NEW,LEVL IV OFFICE/OUTPT VISIT,NEW,LEVL V OFFICE/OUTPT VISIT,EST,LEVL III OFFICE/OUTPT VISIT,EST,LEVL IV OFFICE/OUTPT VISIT,EST,LEVL V Desiree Horvath MD [address] [place] [address] Phone: tel: fax: [facility] Physical Therapy [address] [place] [address] Phone: tel: fax: Referral ID Status Reason Start Date Expiration Date Visits Requested Visits Authorized [id number] Authorized Physical Therapy 09/12/2024 10/12/2025 1 1 K EXTRUDER OPERATOR Reason for Visit * Reason Onset Date Comments Pain 09/12/2024 Encounter Details Date Type Department Care Team (Late st Contact Info) Description 09/12/2024 Telephone [facility] Medical Group Family Medicine - [place] [address] [place] [phone] Desiree Horvath MD [address] [place] [address] Pain Social History Tobacco Use [...] Sex Assigned at Female 09/04/2024 10:05 AM BRICK EXTRUDER OPERATOR Legal Sex Female 9:10 AM CDT Gender Identity Female 08/28/2021 3:59 PM BRICK EXTRUDER OPERATOR Sexual Orientation Straight 08/28/2021 3: 59 PM BRICK EXTRUDER OPERATOR documented as of this encounter Progress Notes * Eli Hernandez MA - 09/12/2024 1:48 PM CST Patient informed and voiced understanding. She will go over to the ER K EXTRUDER OPERATOR * Desiree Horvath MD - 09/12/2024 1:41 PM CST Well sometimes the back pain can radiate around and feel like it is in the abdomen, but if it is this severe, she might benefit from an ED Visit for evaluating this more thoroughly. She may need additional imaging to rule out some other causes. K EXTRUDER OPERATOR * Eli Hernandez MA - 09/12/2024 1:08 PM CST She stated her pain in the left side of her abdomen is SEVERE. She has not slept, the Tramadol or cyclobenzaprine is not touching the pain. She wants to know why if nothing is wrong why is she in this much pain. She can't get comfortable in any position K EXTRUDER OPERATOR * Desiree Horvath MD - 09/12/2024 12:37 PM CST I have entered the order. Please let her know and if anything else changes to give another update. Thanks! K EXTRUDER OPERATOR * Eli Hernandez MA - 09/12/2024 12:20 PM CST I spoke with the patient and she denies and bowel issues, no fever or chills. She does have Tramadol and cyclobenzaprine at home. She is agreeable to PT in [facility]. K EXTRUDER OPERATOR * Desiree Horvath MD - 09/12/2024 11:37 AM CST Please confirm bowel habits are normal and no fevers, chills. Does she still have tramadol and cyclobenzaprine. Would she be agreeable to PT order? K EXTRUDER OPERATOR * Rajesh Bui - 09/12/2024 8:57 AM CST Pt is in a lot of pain since removing snow and now pain has moved to her abdomen, pls call pt and dana cragi Dr. I meant to send this through the Nurse Pool first. K EXTRUDER OPERATOR K EXTRUDER OPERATOR documented in this encounter Plan of Treatment Upcoming Encounters Date Type Department Care Team (Late st Contact Info) Description 09/17/2024 12:45 PM BRICK EXTRUDER OPERATOR Office Visit [facility] Physical Therapy [address] [place] [address] Desiree Horvath MD [address] [place] [id number] Luh Barry, PT 1 [place] [address] 12/03/2024 10:10 AM CDT Office Visit [facility] Medical Group Family Medicine - [place] [address] [place] [address] Desiree Horvath MD [address] [place] [address] 01/15/2025 10:15 AM CDT Appointment [facility] CT [address] [place] [address] Winston Javed DO 3 [facility] [address] [place] [address] 01/21/2025 10:00 AM CDT Appointment [facility] Ultrasound [address] [place] [address] Kenyon Butt MD Three [facility]. [address] [place] [address] 02/20/2025 9:30 AM CDT Office Visit [facility] [address] [place] [address] Azra Geronimo, RIPSAW OPERATOR-C Three [facility]. [address] [place] [address] 03/05/2025 8:20 AM CDT Office Visit [facility] Medical Group Multispecialty Care - [facility] [address] [facility] [address] [place] [address] JavedRamonsarahDO [address] [facility] [address] [place] [address] Scheduled Referrals Name Type Priority Associated Diagnoses [...] documented as of this encounter Care Teams Fishing Rod Marker Relationship Specialty Start Date End Date Desiree Horvath MD [address] [facility] [address] [place] [address] PCP - General 03/18/24 Dyllan Pulido MD CARDIOVASCULAR DISEASE 11/18/20 Jasper Rubalcava MD GASTROENTEROLOGY 11/18/20 documented as of this encounter
--- OUTSIDE RECORDS SUMMARY | 2024-09-14 02:18 | XMS_ITS | Encounter Summary ---
Author Organization [facility] Address [address] [place] [address] Care Team Providers Care Smoking Tobacco Packer Hand Name Role Phone Unavailable Primary Care Provider Unavailabl e Encounter Details Date Type Department Care Team (Late st Contact Info) Description 09/17/2020 Lab Requisition [facility] Care DermPath Lab [address] [facility], [place] [phone] Erickson White MD [address] [place] [address] Social History Tobacco Use Types [...] Comments DERMATOPATHOLOGY Routine 09/16/2020 12:0 0 AM CHIEF LIBRARIAN WORK WITH BLIND documented in this encounter Results * DERMATOPATHOLOGY (09/16/2020 12:00 AM CHIEF LIBRARIAN WORK WITH BLIND) Case Report Dermatopathology Report ? Case: [id number] ? Authorizing Provider: ??Erickson White MD ?Collected: ? 09/16/2020 12:00 AM ? Ordering Location: ? [facility] ?Received: ?09/17/2020 12:30 PM ? Pathologist: ? Tina Farrell MD ? Specimen: ?Skin, right mid paraspinal back ? 4:59 PM [facility] DERMATOPATHOLOGY LABORATORY Final Diagnosis Specimen A. SKIN, right mid paraspinal back: LICHEN PLANUS-LIKE KERATOSIS (BENIGN LICHENOID KERATOSIS) (L82.1) EPIDERMAL NECROSIS SUGGESTIVE OF EXCORIATION (L98.499) 4:59 PM [facility] DERMATOPATHOLOGY LABORATORY Clinical History R/O SCC, Betts's. 4:59 PM [facility] DERMATOPATHOLOGY LABORATORY Gross Description Specimen A: Received is one formalin filled container labeled with the patient's name and designated right mid paraspinal back. The specimen consists of a shave biopsy measuring [id number]. Jar 0. 4:59 PM [facility] DERMATOPATHOLOGY LABORATORY Microscopic Description Specimen A. SKIN, right mid paraspinal back: The epidermis is mildly acanthotic. There is a lichenoid infiltrate with vacuolar changes of basilar keratinocytes and scattered necrotic keratinocytes. The epidermis is focally necrotic and covered with a scale-crust. There is fibrin at the base. 4:59 PM [facility] DERMATOPATHOLOGY LABORATORY Disclaimer An external and internal positive and negative controls are appropriate for the histochemical, immunohistochemical and immunofluorescence stain(s) in this case (if any), except where stated explicitly. The performance characteristics of the stain(s) cited in this report were developed and its performance characteristic determined by the Dermatopathology Laboratory at [facility], directed by Dr. Paulina Farrell. These tests need not be, and therefore are not, approved by the [place] Food and Drug Administration. The tests are used for clinical purposes. Billing Codes Specimen Charges Stain Charges 24766 1 1 4:59 PM CHIEF LIBRARIAN WORK WITH BLIND DERMATOPATHOLOGY LABORATORY Embedded Images 1 4:59 PM CHIEF LIBRARIAN WORK WITH BLIND DERMATOPATHOLOGY LABORATORY Pathology/Cytolog y TISSUE SPECIMEN FROM SKIN / Unknown 09/16/2020 09/17/2020 12:30 PM CHIEF LIBRARIAN WORK WITH BLIND Erickson White MD LAB - PATHOLOGY/CYTO LOGY ORDERABLES DERMATOPATHOLOGY LABORATORY [facility] - Department of Dermatology [facility] Medicine [address] [place] [address], [address] [phone] documented in this encounter Visit Diagnoses Not on filedocumented in this encounter
--- OUTSIDE RECORDS SUMMARY | 2024-09-14 02:18 | XMS_ITS | Encounter Summary ---
Author Organization [facility] Address [address] [place] [address]. [place] [address] [place] [address] Care Team Providers Care Senior Materials Analyst Name Role Phone Dyllan Pulido MD Unavailable Jasper Rubalcava MD Unavailable [phone] Desiree Del Rio MD Primary Care Provider + Encounter Details Date Type Department Care Team (Late st Contact Info) Description 03/21/2024 MyChart Message Enc [facility] Family Medicine - [place] [address] [place], [place] [phone] Desiree Del Rio MD [address] [place] [address] No Poop Social History Tobacco Use Types [...] Sex Assigned at Female 09/04/2024 10:05 AM CRM ARCHITECT Legal Sex Female 9:10 AM CDT Gender Identity Female 08/28/2021 3:59 PM CRM ARCHITECT Sexual Orientation Straight 08/28/2021 3: 59 PM CRM ARCHITECT documented as of this encounter Progress Notes * Eli Hernandez MA - 03/21/2024 1:28 PM CDT Patient informed. She stated she is not really in any pain at the moment. She will go have the xraydone at [facility] in [place] and see what that shows. * Desiree [...] st Contact Info) Description 09/17/2024 12:45 PM CRM ARCHITECT Office Visit [facility] Physical Therapy [address] [place] [address] Desiree Del Rio MD [address] [place] [id number] Luh Barry, PT [address] [place] [address] 12/03/2024 10:10 AM CDT Office Visit [facility] Family Medicine - [place] [address] [place] [phone] Desiree Del Rio MD [address] [place] [address] 01/15/2025 10:15 AM CDT Appointment [facility] [address] [place] [address] Winston Javed, [address] [facility] [address] [place] [address] 01/21/2025 10:00 AM CDT Appointment [facility] Ultrasound [address] [place] [address] Kenyon Butt MD [address] [facility]. [address] [place] [address] 02/20/2025 9:30 AM CDT Office Visit [facility] [address] [place] [phone] Azra Geronimo, CORRECTIONAL FACILITY PSYCHIATRIST-C [address] [facility]. [address] [place] [address] 03/05/2025 8:20 AM CDT Office Visit [facility] Multispecialty Care - [facility] [address] [facility] [place] [address] Winston Javed DO [address] [facility] [address] [place] [address] documented as of this encounter Results * [...] Eric Dewitt MD, 03/21/2024 3:09 PM us Desiree Del Rio MD GENERAL IMAGING Final Re sult documented in this encounter Visit Diagnoses Diagnosis Slow transit constipation- Primary Generalized abdominal pain Abdominal pain, generalized Slow transit constipation Generalized abdominal pain Abdominal pain, generalized documented in this encounter Additional Health Concerns Assessment Noted Time PHQ-9 Depression Total Score: 3 11/19/19 21 10:26 AM CDT documented as of this encounter Care Teams Senior Materials Analyst Relationship Specialty Start Date End Date Desiree Del Rio MD [address] [place] [address] PCP - General 03/18/24 Dyllan Pulido MD CARDIOVASCULAR DISEASE 11/18/20 Jasper Rubalcava MD GASTROENTEROLOGY 11/18/20 documented as of this encounter
--- OUTSIDE RECORDS SUMMARY | 2024-09-14 02:18 | XMS_ITS | Patient Health Summary ---
Author Organization [facility] Address [address] [place] [address] Care Team Providers Care Piano Refinisher Name Role Phone Unavailable Primary Care Provider Unavailabl e Note from Formerly named [facility],non-owned Affiliates and Associated Physician Practices is amultiple site organization consisting of ambulatory clinics and hospital sitesin [place], [place], [place] and [place]. This disclosure is being madepursuant to the Care Everywhere program and may not contain all information available regarding this patient. Last updated 18.[facility] Social History Tobacco Use Types Packs/Day Years Used Date Smoking Tobacco: Never Assessed Sex and Gender Information Value Date Recorded Sex Assigned at Not on file Gender Identity Not on file Sexual Orientation Not on file Procedures * DERMATOPATHOLOGY(Performed 09/16/2020) * DERMATOPATHOLOGY(Performed 06/20/2019) * DERMATOPATHOLOGY(Performed 08/11/2017) * DERMATOPATHOLOGY(Performed 05/25/2017) * DERMATOPATHOLOGY(Performed 08/01/2014) * DERMATOPATHOLOGY(Performed 11/01/2011) Results * DERMATOPATHOLOGY (09/16/2020 12:00 AM SECURITIES TRADER) Only the most recent of6 resultswithin the time period is included. Case Report Dermatopathology Report ? Case: [id number] ? Authorizing Provider: ??Erickson White MD ?Collected: ? 09/16/2020 12:00 AM ? Ordering Location: ? [facility] Derm[facility] Lab ?Received: ?09/17/2020 12:30 PM ? Pathologist: ? Tina Farrell MD ? Specimen: ?Skin, right mid paraspinal back ? 4:59 PM [facility] DERMATOPATHOLOGY LABORATORY Final Diagnosis Specimen A. SKIN, right mid paraspinal back: LICHEN PLANUS-LIKE KERATOSIS (BENIGN LICHENOID KERATOSIS) (L82.1) EPIDERMAL NECROSIS SUGGESTIVE OF EXCORIATION (L98.499) 4:59 PM [facility] DERMATOPATHOLOGY LABORATORY Clinical History R/O SCC, Betts's. 4:59 PM [facility] DERMATOPATHOLOGY LABORATORY Gross Description Specimen A: Received is one formalin filled container labeled with the patient's name and designated right mid paraspinal back. The specimen consists of a shave biopsy measuring [id number]. Jar 0. 4:59 PM [facility] DERMATOPATHOLOGY LABORATORY Microscopic Description Specimen A. SKIN, right mid paraspinal back: The epidermis is mildly acanthotic. There is a lichenoid infiltrate with vacuolar changes of basilar keratinocytes and scattered necrotic keratinocytes. The epidermis is focally necrotic and covered with a scale-crust. There is fibrin at the base. 4:59 PM [facility] DERMATOPATHOLOGY LABORATORY Disclaimer An external and internal positive and negative controls are appropriate for the histochemical, immunohistochemical and immunofluorescence stain(s) in this case (if any), except where stated explicitly. The performance characteristics of the stain(s) cited in this report were developed and its performance characteristic determined by the Dermatopathology Laboratory at [facility], directed by Dr. Paulina Farrell. These tests need not be, and therefore are not, approved by the [place] Food and Drug Administration. The tests are used for clinical purposes. Billing Codes Specimen Charges Stain Charges 74988 1 1 4:59 PM SECURITIES TRADER DERMATOPATHOLOGY LABORATORY Embedded Images 1 4:59 PM SECURITIES TRADER DERMATOPATHOLOGY LABORATORY Pathology/Cytolog y TISSUE SPECIMEN FROM SKIN / Unknown 09/16/2020 09/17/2020 12:30 PM SECURITIES TRADER Erickson White MD LAB - PATHOLOGY/CYTO LOGY ORDERABLES DERMATOPATHOLOGY LABORATORY [facility] - Department of Dermatology [address], [address] [phone]
--- OUTSIDE RECORDS SUMMARY | 2024-09-14 02:18 | XMS_ITS | Referral Summary ---
Author Organization [facility] Address [address] [place] [address] Care Team Providers Care Housekeeping Aide Name Role Phone Unavailable Primary Care Provider Unavailabl e Source Comments [facility],non-[facility] health Affiliates and Associated Physician Practices is amultiple site organization consisting of ambulatory clinics and hospital sitesin [place], [place], [place]. This disclosure is being madepursuant to the Care Everywhere program and may not contain all information available regarding this patient. Last updated 18.[facility] [employer] Social History Tobacco Use Types Packs/Day Years Used Date Smoking Tobacco: Never Assessed Sex and Gender Information Value Date Recorded Sex Assigned at Not on file Gender Identity Not on file Sexual Orientation Not on file Plan of Treatment Not on file
--- OUTSIDE RECORDS SUMMARY | 2024-09-14 02:18 | XMS_ITS | Clinical Summary ---
Author Organization [facility] [employer] Address [address] [place] [address] Care Team Providers Care General Purchasing Agent Name Role Phone Unavailable Primary Care Provider Unavailabl e Source Comments [facility],non-owned Affiliates and Associated Physician Practices is amultiple site organization consisting of ambulatory clinics and hospital sitesin [place], [place], [place] and [place]. This disclosure is being madepursuant to the Care Everywhere program and may not contain all information available regarding this patient. Last updated 18.[facility] [employer] Social History Tobacco Use Types Packs/Day Years [...]
--- OUTSIDE RECORDS SUMMARY | 2024-09-14 02:18 | XMS_ITS | Encounter Summary ---
Author Organization [facility] Address [address] [place] [address] Care Team Providers Care Global Supply Chain Vice President Name Role Phone Unavailable Primary Care Provider Unavailabl e Encounter Details Date Type Department Care Team (Late st Contact Info) Description 06/21/2019 Lab Requisition [facility] [address] [facility], [place] [phone] Erickson White MD [address] [place] [address] Social History Tobacco Use Types [...] CDT) Case Report Dermatopathology Report ? Case: [id number] ? Authorizing Provider: ??Erickson Whiet MD ?Collected: ? 06/20/2019 12:00 AM ? Ordering Location: ? [facility] ?Received: ?06/21/2019 12:46 PM ? Pathologist: ? Colleen Zayas MD ? Specimens: ?? A) - Skin, right upper inner thigh ? B) - Skin, right lower abdomen right of midline ? C) - Skin, right med post mid thigh ? 10:39 PM [facility] DERMATOPATHOLOGY LABORATORY Final Diagnosis Specimen A. SKIN, right upper inner thigh: SUPERFICIAL PERIVASCULAR LYMPHOCYTIC INFILTRATE WITH EOSINOPHILS (L27.0) (see microscopic description and comment) Specimen B. SKIN, right lower abdomen right of midline: ACTINIC KERATOSIS, ACANTHOLYTIC AND LICHENOID TYPES, TRAUMATIZED (L57.0) Specimen C. SKIN, right med post mid thigh: BENIGN VERRUCOUS KERATOSIS, INFLAMED (L82.1) (see microscopic description) 10:39 PM [facility] DERMATOPATHOLOGY LABORATORY Clinical History A: R/O Betts's vs dermatitis. B: R/O BCC. C: R/O Betts's vs dermatitis. 10:39 PM [facility] DERMATOPATHOLOGY LABORATORY Gross Description Specimen A: Received is one formalin filled container labeled with the patient's name and designated right upper inner thigh. The specimen consists of a shave biopsy measuring [id number]. Jar 0. Specimen B: Received is one formalin filled container labeled with the patient's name and designated right lower abdomen right of midline. The specimen consists of a shave biopsy measuring [id number]. Jar 0. Specimen C: Received is one formalin filled container labeled with the patient's name and designated right med post mid thigh. The specimen consists of a shave biopsy measuring [id number]. Jar 0. 10:39 PM [facility] DERMATOPATHOLOGY LABORATORY Microscopic Description Specimen A. SKIN, [...] sections were obtained and reviewed. 10:39 PM [facility] DERMATOPATHOLOGY LABORATORY AP Comment Specimen A. SKIN, right upper inner thigh: These histological findings are often seen in hypersensitivity reactions. 10:39 PM [facility] DERMATOPATHOLOGY LABORATORY Disclaimer An external and internal positive and negative controls are appropriate for the histochemical, immunohistochemical and immunofluorescence stain(s) in this case (if any), except where stated explicitly. The performance characteristics of the stain(s) cited in this report were developed and its performance characteristic determined by the Dermatopathology Laboratory at [facility], directed by Dr. Paulina Farrell. These tests need not be, and therefore are not, approved by the [place] Food and Drug Administration. The tests are used for clinical purposes. Billing Codes Specimen Charges Stain Charges 52468 96868 82091 1 1 1 10442 1 9 10:39 PM SURFACE SHIP USW SUPERVISOR DERMATOPATHOLOGY LABORATORY Embedded Images 9 10:39 PM SURFACE SHIP USW SUPERVISOR DERMATOPATHOLOGY LABORATORY Pathology/Cytology TISSUE SPECIMEN FROM SKIN / Unknown 06/20/2019 06/21/2019 12:46 PM CDT Miscellaneous samples (specimen) TISSUE SPECIMEN FROM SKIN / Unknown 06/20/2019 06/21/2019 12:46 PM CDT Miscellaneous samples (specimen) TISSUE SPECIMEN FROM SKIN / Unknown 06/20/2019 06/21/2019 12:46 PM CDT Erickson White MD LAB - PATHOLOGY/CYTO LOGY ORDERABLES DERMATOPATHOLOGY LABORATORY [facility] - Department of Dermatology [address] [place] [address], 5th Floor Lab [address] [phone] documented in this encounter Visit Diagnoses Not on filedocumented in this encounter
--- OUTSIDE RECORDS SUMMARY | 2024-09-14 02:18 | XMS_ITS | Clinical Summary ---
Author Organization [facility] Address [address] [place] [address]. [place] [address] [place] [address] Care Team Providers Care Blanker Press Operator Name Role Phone Dyllan Pulido MD Unavailable Jasper Rubalcava MD Unavailable [phone] Desiree Horvath MD Primary Care Provider + Allergies Active Allergy Reactions Criticality Noted Date Comments Bacitracin Unknown 04/12/2023 Metformin GI Upset 03/19/2024 severe Neomycin Rash Medium 12/28/2018 Neomycin-Bacitracin Zn-Polymyx Rash Medium 12/28 Ciijmxvv-Xwppnmanw-Ocobmunlff Rash Medium 2019 Penicillins Nausea and Vomiting Low 04/29/2020 Polymyxin B Unknown 04/12/2023 Medications aspirin EC (ASPIRIN EC) 81 MG tablet 1 tablet (81 mg total). 03/19/20 14 Active [place]-3 Fatty Acids (FISH OIL) 1200 MG Cap [...] neuropathy, without long-term current use of insulin ([facility]/HCC HHS/HCC) Take 1 tablet (10 mg total) [...] monthly. Assessment & Plan (08/10/2024 12:20 PM FOOD AND NUTRITION PROFESSOR): Increase tramadol to daily as needed especially [...] neuropathy, without long-term current use of insulin ([facility]) 12/18/2021 Overview (05/31/2024): Last A1c 7.1% in [...] PPI. Assessment & Plan (07/23/2024 3:44 PM FOOD AND NUTRITION PROFESSOR): Chronic and not controlled. Resume rabeprazole. Benefits [...] and isosorbide mononitrate. Await CMP-lab issue with [employer]. Assessment & Plan (03/19/2024 10:14 AM CDT): Not controlled today but was previously very well-controlled. Will hold off on any adjustments and recommend that she monitor her blood pressures at home. Continue hydrochlorothiazide and isosorbide mononitrate. Resolved Problems Problem Noted Date Diagnosed Date Resolved Date Hypercortisolism ([facility]) 12/18/2021 04/13/2022 Vertigo 12/18/2021 06/08/2022 Restless leg syndrome 11/23/20212021 Fall, subsequent encounter 09/07/2021 0 12/16/2022 Abdominal hernia 06/06/2020 10/21/2020 Spigelian hernia 06/06/2020 10/21/2020 Back muscle spasm 05/23/2020 05/29/2020 Constipation, unspecified constipation type 05/05/2020 06/08/2022 Generalized abdominal pain 05/05/2020 1 Angina pectoris 04/29/2020 12/18/2021 Ex-cigar smoker 04/29/2020 05/29/2020 Encounters Date Type Department Care Team Description 09/13/2024 1:20 PM FOOD AND NUTRITION PROFESSOR Office Visit [address] [place] [address] Desiree Horvath MD ER F/U (Was at ER.yest. was dx with closed compression fx of L2 vertebra. She is still in a lot of pain. Pain is on the left side of her body. ) 09/13/[address] [place] [address] Desiree Horvath MD Refill Request 09/13/2024 Travel 09/12/2024 Scan [employer] INFO SRVCS Scanned, Doc [facility] Group CT (SCAN) 09/12/[address] [place] [address] Desiree Horvath MD Pain 09/04/2024 2:10 PM FOOD AND NUTRITION PROFESSOR Office Visit [address] [place] [address] Desiree Horvath MD Anxiety (b); Back Pain (Was shoveling snow. Using voltarin on her back. Still in a lot of pain. Middle of back to her hips. Onset- several days. ) 09/04/2024 Travel 09/04/[address] [place] [address] Desiree Horvath MD Back Pain; Advice 08/10/2024 11:30 AM FOOD AND NUTRITION PROFESSOR Office Visit [address] [place] [address] Desiree Horvath MD Back Pain (Onset- couple years. Hx of fx back. ); Headache (Onset- 2 wks. Comes in the am. Top of her head. ) 08/10/2024 Travel 07/23/2024 2:20 PM FOOD AND NUTRITION PROFESSOR Office Visit [address] [place] [address] Desiree Horvath MD Medication Check (She wants to be placed on omeprazole. She thinks she has acid refulx. ) 07/23/2024 Travel 06/14/2024 Telephone [facility] [address] [facility] [address] [place] [address] Desiree Horvath MD Mammogram (SCAN) from Last [...] Shingrix 06/01/2022,02/27/2022 Tdap (Adacel) 01/07/2021 Zoster (Zostavax) 00926 Unt/0.65Ml 06/30/2010 Family History Medical History Relation [...] Sex Assigned at Female 09/04/2024 10:05 AM FOOD AND NUTRITION PROFESSOR Legal Sex Female 9:10 AM CDT Gender Identity Female 08/28/2021 3:59 PM FOOD AND NUTRITION PROFESSOR Sexual Orientation Straight 08/28/2021 3: 59 PM FOOD AND NUTRITION PROFESSOR Last Filed Vital Signs Vital Sign Reading Time Taken Comments Blood Pressure 120/70 09/13/2024 1:32 PM FOOD AND NUTRITION PROFESSOR Pulse 77 09/13/2024 1:25 PM FOOD AND NUTRITION PROFESSOR Temperature 36.4 ??C (97.6 ??F) 09/13/2024 1:25 PM CS T Respiratory Rate 17 07/23/2024 2:01 PM FOOD AND NUTRITION PROFESSOR Oxygen Saturation 98% 09/13/2024 1:25 PM FOOD AND NUTRITION PROFESSOR Inhaled Oxygen Concentration - - Weight 83.6 kg (184 lb 3.2 oz) 09/13/2024 1:25 P M FOOD AND NUTRITION PROFESSOR Height 165.1 cm (5' 5 ) 09/13/2024 1:25 PM FOOD AND NUTRITION PROFESSOR Body Mass Index 30.65 09/13/2024 1:25 PM FOOD AND NUTRITION PROFESSOR Plan of Treatment Upcoming Encounters Date Type Department Care Team (Late st Contact Info) Description 09/17/2024 12:45 PM FOOD AND NUTRITION PROFESSOR Office Visit [facility] Physical Therapy [address] [place] [address] Desiree Horvath MD [address] [place] [address] Luh Barry, PT 1 [place] [address] 12/03/2024 10:10 AM CDT Office Visit [facility] Family Medicine - [place] [address] [place] [address] Desiree Horvath MD [address] [place] [address] 01/15/2025 10:15 AM CDT Appointment [facility] [address] [place] [address] Winston Javed DO [address] [facility] [address] [place] [address] 01/21/2025 10:00 AM CDT Appointment [facility] Ultrasound [address] [place] [address] Kenyon Butt MD [address] [facility]. [address] [place] [address] 02/20/2025 9:30 AM CDT [facility] [address] [place] [address] Azra Geronimo, SUPERVISOR TANK HOUSE-C [address] [place] [address] 03/05/2025 8:20 AM CDT Office Visit [facility] Multispecialty Care - [facility] [address] [facility] [address] [place] [address] Winston Javed DO [address] [facility] [address] [place] [address] Health Maintenance Due Date Last Done Comments [...] Retinopathy Eye Exam 01/27/2025 01/27/2023 PHQ-2 (Physician [place]) 09/04/2025 09/04/2024 Colorectal Cancer Screening Colonoscopy (10 [...] neuropathy, without long-term current use of insulin ([facility]/HCC [facility]) LIPID PANEL Routine 11/14/2023 8:51 AM CDT DIABETIC RETINOPATHY EXAM (NEGATIVE)(SCAN ORDER) Routine 01/27/2023 HEPATITIS C ANTIBODY W/RFX TO HCV RNA Routine 01/01/2022 9:04 AM CDT Need for hepatitis C screening test BONE DENSITY/DEXA Routine 07/07/2021 12: 00 AM FOOD AND NUTRITION PROFESSOR Osteopenia, unspecified location Postmenopausal COLONOSCOPY GENERIC (SCAN [...] Final Re sult [address], [place] [address] [facility] [address] [place] [address], * (ABNORMAL) LIPID PANEL (11/14/2023 8:51 AM CDT) CHOLESTEROL 122 <200 mg/dL [facility] HDL 49(L) > OR = 50 mg/dL [facility] [facility] TRIGLYCERIDES 183(H) <150 mg/dL [facility] [place] [facility] LDL (CALCULATED) 47 mg/dL (calc) [facility] Comment: Reference range: <100 Desirable range <100 mg/dL for primary prevention; ?? <70 mg/dL for patients with CHD or diabetic patients with > or = 2 CHD risk factors. LDL-C is now calculated using the Jose-Jez calculation, which is a validated novel method providing better accuracy than the Friedewald equation in the estimation of LDL-C. Jose SS et al. SHANIQUA. 2013;310(19): 5711-4976 (http://education.Animal Cell Therapies.K-MOTION Interactive/faq/FZZ678) CHOL/HDL RATIO 2.5 <5.0 (calc) [facility] NON HDL CHOLESTEROL 73 <130 mg/dL (calc) [facility] Comment: For patients with diabetes plus 1 major ASCVD risk factor, treating to a non-HDL-C goal of <100 mg/dL (LDL-C of <70 mg/dL) is considered a therapeutic option. 11/14/2023 8:51 AM CDT 11/14/2023 8:54 AM CDT Narrative [facility] - 11/18/2023 1:22 AM CDT FASTING:YES FASTING: YES Resulting Agency Comment Performing Organization Information: ?Site ID: [id number] ?Name: Uziel Mcnealexa ?Address: [address] [place] [address] ?Director: Keenan Olivares MD Melissa Kunz SUPERVISOR TANK HOUSE LABORATORY Final Res ult Performing Organization Address City/[facility]/ZIP Co de Phone Number [facility] LILIANE [facility] [address] [place] [address], * DIABETIC RETINOPATHY EXAM (NEGATIVE)(SCAN) (01/27/2023) [facility] Scanned SCANNING Final Resu lt Performing Organization Address [facility]/ZIP Co de Phone Number [facility] * HEPATITIS C ANTIBODY W/RFX TO HCV RNA ([facility]) (01/01/2022 9:04 AM CDT) HEPATITIS C AB NON-REACTI VE NON-REACT [facility] SIGNAL TO CUTOFF 0.[address] [facility] Comment: HCV antibody was non-reactive. There is no laboratory evidence of HCV infection. In most cases, no further action is required. However, if recent HCV exposure is suspected, a test for HCV RNA (test code 57849) is suggested. For additional information please refer to http://education.KingX Studios/faq/OYR20c8 (This link is being provided for informational/ educational purposes only.) 01/01/2022 9:04 AM CDT 01/02/2022 7:12 AM CDT Melissa Alfredt SUPERVISOR [employer] Final Res ult [facility] [address] [address] * BONE DENSITY/DEXA (07/07/2021 12:00 AM FOOD AND NUTRITION PROFESSOR) Anatomical Region Laterality Modality Bone Bone Density 07/07/2021 us Melissa Kunz SUPERVISOR TANK HOUSE DEXA Final Res ult * COLONOSCOPY (03/13/2019 12:00 AM CDT) 03/13/2019 Doc [facility] Scanned SCANNING Final Resu lt Performing Organization Address City/[facility]/ZIP Co de Phone Number [facility] [address] [address] from Last 3 Months or Most Recently Relevant to Health Maintenance Insurance MEDICARE Care Teams Blanker Press Operator Relationship Specialty Start Date End Date Desiree Horvath MD [address] [place] [address] PCP - General 03/18/24 Dyllan Pulido MD CARDIOVASCULAR DISEASE 11/18/20 Jasper Rubalcava MD GASTROENTEROLOGY 11/18/20
--- OUTSIDE RECORDS SUMMARY | 2024-09-14 02:19 | XMS_ITS | Referral Summary ---
Author Organization [facility] [address] Address [address] [place] [address] Care Team Providers Care Scooter Mechanic Name Role Phone Melissa Kunz MD Primary Care Provider [phone] Allergies Active Allergy Reactions Criticality Noted Date Comments Neomycin Rash Medium 12/28/2018 Wuyyimgc-Vfcygljne-Cbovyzebys Rash Medium 2019 Tpxybepm-Eqsplgsibs-Ozgaiuakg Rash Medium 2018 Penicillins Nausea & Vomiting [...] on file Legal Sex Female 12:04 AM BROADCAST JOURNALIST Gender Identity Female 11/27/2019 3:36 PM CDT [...] file Insurance MEDICARE FOR LIFE Care Teams Scooter Mechanic Relationship Specialty Start Date End Date Melissa Kunz MD PCP - General Nurse Practitioner 06/03/21
--- OUTSIDE RECORDS SUMMARY | 2024-09-14 02:19 | XMS_ITS | Encounter Summary ---
Author Organization [facility] Address [address] [place] [address]. [place] [address] [place] [address] Care Team Providers Care Tare Weigher Name Role Phone Dyllan Pulido MD Unavailable Jasper Rubalcava MD Unavailable [phone] Melissa Kunz NP Primary Care Provider [phone] Desiree Horvath MD Primary Care Provider + Encounter Details Date Type Department Care Team (Late st Contact Info) Description 12/09/2021 TripletPlust Message Enc [facility] Family Medicine - [place] [address] [facility] [address] [place], [place] [address] Melissa Kunz NP [address] [place], [place] [address] prescription Social History Tobacco Use Types Packs/Day [...] Sex Assigned at Female 09/04/2024 10:05 AM STRAIGHT SLICING MACHINE OPERATOR Legal Sex Female 9:10 AM CDT Gender Identity Female 08/28/2021 3:59 PM STRAIGHT SLICING MACHINE OPERATOR Sexual Orientation Straight 08/28/2021 3: 59 PM STRAIGHT SLICING MACHINE OPERATOR COVID-19 Exposure Response Date Recorded In the last 10 days, have yo u been in contact with someone who was confirmed or suspected to have Coronavirus/COVID-19? No / Unsure 11/23/2021 2:14 PM CDT documented as of this encounter Plan of Treatment Upcoming Encounters Date Type Department Care Team (Late st Contact Info) Description 09/17/2024 12:45 PM STRAIGHT SLICING MACHINE OPERATOR Office Visit [facility] Physical Therapy [address] [place] [address] Desiree Horvath MD [address] [facility] [address] [place] [address] Luh Barry, PT 1 [place] [address] 12/03/2024 10:10 AM CDT Office Visit [facility] Family Medicine - [place] [address] [place] [address] Desiree Horvath MD [address] [facility] [address] [place] [address] 01/15/2025 10:15 AM CDT Appointment [facility] [address] [place] [address] Winston Javed DO [address] [facility] [address] [place] [address] 01/21/2025 10:00 AM CDT Appointment [facility] Ultrasound [address] [place], [place] [address] Kenyon Butt MD [address] [facility]. [address] [place] [address] 02/20/2025 9:30 AM CDT [facility] [address] [place] [address] Azra Geronimo, LIVESTOCK FARMER-C [address] [place] [address] 03/05/2025 8:20 AM CDT Office Visit [facility] Multispecialty Care - [facility] [address] [place] [address] Winston Javed DO [address] [facility] [address] [place] [address] documented as of this encounter Visit Diagnoses Not on filedocumented in this encounter Additional Health Concerns Infection Onset Date Last Indicated Resolved Time COVID-19 Rule Out 04/12/2023 04/12/2023 04/12/2023 1:26 PM CDT COVID-19 Confirmed 04/12/2023 04/12/2023 12:32 AM CDT Assessment Noted Time PHQ-9 Depression Total Score: 3 11/19/19 21 10:26 AM CDT documented as of this encounter Care Teams Tare Weigher Relationship Specialty Start Date End Date Melissa Kunz NP [address] [place] [address] PCP - General NURSE PRACTITIONER 04/21/21 03/17/24 Desiree Horvath MD [address] [place] [address] PCP - General 03/18/24 Dyllan Pulido MD CARDIOVASCULAR DISEASE 11/18/20 Jasper Rubalcava MD GASTROENTEROLOGY 11/18/20 documented as of this encounter
--- OUTSIDE RECORDS SUMMARY | 2024-09-14 02:19 | XMS_ITS | Encounter Summary ---
Author Organization [facility] Address [address] [place] [address]. [place] [address] [place] [address] Care Team Providers Care Mailing Specialist Name Role Phone Dyllan Pulido MD Unavailable Jasper Rubalcava MD Unavailable [phone] Melissa Kunz NP Primary Care Provider [phone] Desiree Horvath MD Primary Care Provider + Encounter Details Date Type Department Care Team (Late st Contact Info) Description 10/31/[address] Message Enc [facility] Family Medicine - [place] [address] [place] [address] Ren[place], [facility] Provider appointment needed Social History Tobacco Use [...] Sex Assigned at Female 09/04/2024 10:05 AM SIEBEL SOLUTION ARCHITECT Legal Sex Female 9:10 AM CDT Gender Identity Female 08/28/2021 3:59 PM SIEBEL SOLUTION ARCHITECT Sexual Orientation Straight 08/28/2021 3: 59 PM SIEBEL SOLUTION ARCHITECT documented as of this encounter Plan of Treatment Upcoming Encounters Date Type Department Care Team (Late st Contact Info) Description 09/17/2024 12:45 PM SIEBEL SOLUTION ARCHITECT Office Visit [facility] Physical Therapy [address] [place], [place] [address] Desiree Horvath MD [address] [place] [address] Luh Barry, PT [address] [facility] [place] [address] 12/03/2024 10:10 AM CDT Office Visit [facility] Family Medicine - [place] [address] [place] [address] Desiree Horvath MD [address] [place] [address] 01/15/2025 10:15 AM CDT Appointment [facility] CT [address] [place] [address] Winston Javed DO [address] [facility] [address] [place] [address] 01/21/2025 10:00 AM CDT Appointment [facility] Ultrasound [address] [place] [address] Kenyon Butt MD Three [facility]. [address] [place] [address] 02/20/2025 9:30 AM CDT [facility] [address] [place] [address] Azra Geronimo, PIPE MAKER-C [address] [facility]. [address] [place] [address] 03/05/2025 8:20 AM CDT Office Visit [facility] Multispecialty Care - [facility] [address] [place] [address] Winston Javed DO [address] [facility] [address] [place] [address] documented as of this encounter Visit Diagnoses Not on filedocumented in this encounter Additional Health Concerns Assessment Noted Time PHQ-9 Depression Total Score: 3 11/19/19 21 10:26 AM CDT documented as of this encounter Care Teams Mailing Specialist Relationship Specialty Start Date End Date Melissa Kunz NP [address] [place] [address] PCP - General NURSE PRACTITIONER 04/21/21 03/17/24 Desiree Horvath MD [address] [place] [address] PCP - General 03/18/24 Dyllan Pulido MD CARDIOVASCULAR DISEASE 11/18/20 Jasper Rubalcava MD GASTROENTEROLOGY 11/18/20 documented as of this encounter
--- OUTSIDE RECORDS SUMMARY | 2024-09-14 02:19 | XMS_ITS | Clinical Summary ---
Author Organization [facility] [address] Address [address] [place] [address] Care Team Providers Care Tire Fabricator Name Role Phone Melissa Kunz MD Primary Care Provider [phone] Allergies Active Allergy Reactions Criticality Noted Date Comments Neomycin Rash Medium 12/28/2018 Isowydil-Xrlrxqfvj-Osxpiofxvy Rash Medium 2019 Jcwzfidt-Dnwyqwhkmz-Srqhlxwps Rash Medium 2018 Penicillins Nausea & Vomiting [...] on file Legal Sex Female 12:04 AM TAX REPRESENTATIVE Gender Identity Female 11/27/2019 3:36 PM CDT [...] - Td or Tdap) 01/07/2031 Insurance MEDICARE [employer] Care Teams Tire Fabricator Relationship Specialty Start Date End Date Melissa Kunz MD PCP - General Nurse Practitioner 06/03/21
--- OUTSIDE RECORDS SUMMARY | 2024-09-14 02:19 | XMS_ITS | Encounter Summary ---
Author Organization [facility] Address [address] [place] [address]. [place] [address] [place] [address] Care Team Providers Care Senior Account Manager Name Role Phone Swapnil Lux MD Primary [facility] Provider [facility] Dyllan Mishra MD Unavailable Jasper Rubalcava MD Unavailable [phone] Melissa Kunz NP Primary Care Provider [phone] Desiree Horvath MD Primary Care Provider + Encounter Details Date Type Department Care Team (Late st Contact Info) Description 06/03/[address] [facility] Family Medicine - [place] [address] [place] [address] Swapnil Lux MD RE: RE: Follow Up/Update Social History Tobacco Use Types Packs/Day Years Used Date Smoking Tobacco: Former Cigarettes 1 40 0 04/22/1979 - 04/22/2019 Smokeless Tobacco: Never Alcohol Use Standard Drinks/Week Comments Never 0 (1 standard drink = 0.6 oz pur e alcohol) Comments Unknown Sex and Gender Information Value Date Recorded Sex Assigned at Female 09/04/2024 10:05 AM WIRE STRAIGHTENER Legal Sex Female 9:10 AM CDT Gender Identity Female 08/28/2021 3:59 PM WIRE STRAIGHTENER Sexual Orientation Straight 08/28/2021 3: 59 PM WIRE STRAIGHTENER COVID-19 Exposure Response Date Recorded In the last month, have you been in contact with someone who was confirmed or suspected to have Coronavirus / COVID-19? No / Unsure 06/06/2020 10:54 AM CDT documented as of this encounter Plan of Treatment Upcoming Encounters Date Type Department Care Team (Late st Contact Info) Description 09/17/2024 12:45 PM WIRE STRAIGHTENER Office Visit [facility] Physical Therapy [address] [place] [address] Desiree Horvath MD [address] [place] [address] Luh Barry, PT 1 [place] [address] 12/03/2024 10:10 AM CDT Office Visit [facility] Family Medicine - [place] [address] [place] [address] Desiree Horvath MD [address] [place] [address] 01/15/2025 10:15 AM CDT Appointment [facility] CT [address] [place] [address] Winston Javed DO [address] [facility] [address] [place] [address] 01/21/2025 10:00 AM CDT Appointment [facility] Ultrasound [address] [place] [address] Kenyon Butt MD [address] [facility] [place] [address] 02/20/2025 9:30 AM CDT Office Visit [facility] [address] [place] [address] Azra Geronimo, FORGING MACHINE OPERATOR-C [address] [place] [address] 03/05/2025 8:20 AM CDT Office Visit [facility] Multispecialty Care - [facility] [address] [place] [address] Wintson Javed DO [address] [facility] [address] [place] [address] documented as of this encounter Visit Diagnoses Not on filedocumented in this encounter Additional Health Concerns Infection Onset Date Last Indicated Resolved Time COVID-19 Rule Out 09/03/2021 09/03/2021 09/03/2021 2:09 PM WIRE STRAIGHTENER COVID-19 Rule Out 04/12/2023 04/12/2023 04/12/2023 1:26 PM CDT COVID-19 Confirmed 04/12/2023 04/12/2023 12:32 AM CDT documented as of this encounter Care Teams Senior Account Manager Relationship Specialty Start Date End Date Swapnil Lux MD PCP - General FAMILY MEDICINE SPORTS MEDICINE 03/31/20 04/20/21 Melissa Kunz NP [address] [place] [address] PCP - General NURSE PRACTITIONER 04/21/21 03/17/24 Desiree Horvath MD [address] [place] [address] PCP - General 03/18/24 Dyllan Pulido MD CARDIOVASCULAR DISEASE 11/18/20 Jasper Rubalcava MD GASTROENTEROLOGY 11/18/20 documented as of this encounter
--- OUTSIDE RECORDS SUMMARY | 2024-09-14 02:19 | XMS_ITS | Encounter Summary ---
Author Organization [facility] Address [address] [place] [address]. [place] [address] [place] [address] Care Team Providers Care Brokerage Clerk Name Role Phone Dyllan Pulido MD Unavailable Jasper Rubalcava MD Unavailable [phone] Melissa Kunz NP Primary Care Provider [phone] Desiree Horvath MD Primary Care Provider + Encounter Details Date Type Department Care Team (Late st Contact Info) Description 12/11/2023 JLGOVt Message Enc [facility] Medical [facility] Family Medicine - [place] [address] [facility] [address] [place], [place] [address] Melissa Kunz NP [address] [place], [place] [address] Pills for migraine Social History Tobacco Use [...] Sex Assigned at Female 09/04/2024 10:05 AM MEDICAL MANAGEMENT SPECIALIST Legal Sex Female 9:10 AM CDT Gender Identity Female 08/28/2021 3:59 PM MEDICAL MANAGEMENT SPECIALIST Sexual Orientation Straight 08/28/2021 3: 59 PM MEDICAL MANAGEMENT SPECIALIST documented as of this encounter Progress [...] order. I sent in a refill at [facility] and advised the patient to call [...] st Contact Info) Description 09/17/2024 12:45 PM MEDICAL MANAGEMENT SPECIALIST Office Visit [facility] Physical Therapy [address] [place] [address] Desiree Horvath MD [address] [place], [place] [address] Lhu Barry, PT [address] [facility] [place] [address] 12/03/2024 10:10 AM CDT Office Visit [facility] Medical Group Family Medicine - [place] [address] [place] [address] Desiree Horvath MD [address] [place] [address] 01/15/2025 10:15 AM CDT Appointment [facility] CT [address] [place] [address] Winston Javed DO [address] [facility] [address] [place] [address] 01/21/2025 10:00 AM CDT Appointment [facility] Ultrasound [address] [place] [address] Kenyon Butt MD Three [facility]. [address] [place] [address] 02/20/2025 9:30 AM CDT Office Visit [facility] [address] [place] [address] Azra Geronimo, PROFESSIONAL FIGHTER-C Three [facility]. [address] [place] [address] 03/05/2025 8:20 AM CDT Office Visit [facility] Medical Group Multispecialty Care - [facility] [address] [facility] [address] [place] [address] Winston Javed DO [address] [facility] [address] [place] [address] documented as of this encounter Visit Diagnoses Not on filedocumented in this encounter Additional Health Concerns Assessment Noted Time PHQ-9 Depression Total Score: 3 11/19/19 21 10:26 AM CDT documented as of this encounter Care Teams Brokerage Clerk Relationship Specialty Start Date End Date Melissa Kunz NP [address] [place] [address] PCP - General NURSE PRACTITIONER 04/21/21 03/17/24 Desiree Horvath MD [address] [place] [address] PCP - General 03/18/24 Dyllan Pulido MD CARDIOVASCULAR DISEASE 11/18/20 Jasper Rubalcava MD GASTROENTEROLOGY 11/18/20 documented as of this encounter
--- OUTSIDE RECORDS SUMMARY | 2024-09-14 02:19 | XMS_ITS | Encounter Summary ---
Author Organization [facility] Address [address] [place] [address]. [place] [address] [place] [address] Care Team Providers Care Aluminum Shingle Roofer Name Role Phone Dyllan Pulido MD Unavailable Jasper Rubalcava MD Unavailable [phone] Melissa Kunz NP Primary Care Provider [phone] Desiree Horvath MD Primary Care Provider + Encounter Details Date Type Department Care Team (Late st Contact Info) Description 09/16/2023 Vertical Communications Message Enc [facility] Medical Group Family Medicine - [place] [address] [place] [address] Renetta, [facility] Provider Appointment needed Social History Tobacco [...] Sex Assigned at Female 09/04/2024 10:05 AM OTR COMPANY DRIVER Legal Sex Female 9:10 AM CDT Gender Identity Female 08/28/2021 3:59 PM OTR COMPANY DRIVER Sexual Orientation Straight 08/28/2021 3: 59 PM OTR COMPANY DRIVER documented as of this encounter Plan of Treatment Upcoming Encounters Date Type Department Care Team (Late st Contact Info) Description 09/17/2024 12:45 PM OTR COMPANY DRIVER Office Visit [facility] Physical Therapy [address] [place], [place] [id number] Desiree Horvath MD [address] [place] [address] Luh Barry, PT [address] [address] 12/03/2024 10:10 AM CDT Office Visit [facility] Medical Group Family Medicine - [place] [address] [place] [address] Desiree Horvath MD [address] [place] [address] 01/15/2025 10:15 AM CDT Appointment [facility] CT [address] [place] [address] Winston Javed DO 3 [facility] [address] [place] [address] 01/21/2025 10:00 AM CDT Appointment [facility] Ultrasound [address] [place] [address] Kenyon Butt MD Three [facility]. [address] [place] [address] 02/20/2025 9:30 AM CDT [facility] [address] [place] [address] Azra Geronimo, CARPET MEASURER-C Three [facility]. [address] [place] [address] 03/05/2025 8:20 AM CDT Office Visit [facility] Medical Group Multispecialty Care - [facility] [address] [facility] [place] [address] Winston Javed DO [address] [facility] [address] [place] [address] documented as of this encounter Visit Diagnoses Not on filedocumented in this encounter Additional Health Concerns Assessment Noted Time PHQ-9 Depression Total Score: 3 11/19/19 21 10:26 AM CDT documented as of this encounter Care Teams Aluminum Shingle Roofer Relationship Specialty Start Date End Date Melissa Kunz NP [address] [place] [address] PCP - General NURSE PRACTITIONER 04/21/21 03/17/24 Desiree Horvath MD [address] [place] [address] PCP - General 03/18/24 Dyllan Pulido MD CARDIOVASCULAR DISEASE 11/18/20 Jasper Rubalcava MD GASTROENTEROLOGY 11/18/20 documented as of this encounter
--- OUTSIDE RECORDS SUMMARY | 2024-09-14 02:19 | XMS_ITS | Encounter Summary ---
Author Organization [facility] Address [address] [place] [address]. [place] [address] [place] [address] Care Team Providers Care Command Center Analyst Name Role Phone Dyllan Pulido MD Unavailable Jasper Rubalcava MD Unavailable [phone] Melissa Kunz NP Primary Care Provider [phone] Desiree Horvath MD Primary Care Provider + Encounter Details Date Type Department Care Team (Late st Contact Info) Description 05/14/2021 Airstone Message Enc [facility] Medical Group Family Medicine - [place] [address] [place] [address] Renetta, [facility] [...] Sex Assigned at Female 09/04/2024 10:05 AM COLLECTION SYSTEMS CONSULTANT Legal Sex Female 9:10 AM CDT Gender Identity Female 08/28/2021 3:59 PM COLLECTION SYSTEMS CONSULTANT Sexual Orientation Straight 08/28/2021 3: 59 PM COLLECTION SYSTEMS CONSULTANT COVID-19 Exposure Response Date Recorded In the last month, have you been in contact with someone who was confirmed or suspected to have Coronavirus / COVID-19? No / Unsure 04/21/2021 9:37 AM CDT documented as of this encounter Plan of Treatment Upcoming Encounters Date Type Department Care Team (Late st Contact Info) Description 09/17/2024 12:45 PM COLLECTION SYSTEMS CONSULTANT Office Visit [facility] Physical Therapy [address] [place] [address] Desiree Horvath MD [address] [place] [address] Luh Barry, PT 1 [place] [address] 12/03/2024 10:10 AM CDT Office Visit [facility] Medical Group Family Medicine - [place] [address] [place] [address] Desiree Horvath MD [address] [facility] [address] [place] [address] 01/15/2025 10:15 AM CDT Appointment [facility] CT [address] [place] [address] Winston Javed DO 3 [facility] [address] [place] [address] 01/21/2025 10:00 AM CDT Appointment [facility] Ultrasound [address] [place] [address] Kenyon Butt MD Three [facility]. [address] [place] [address] 02/20/2025 9:30 AM CDT Office Visit [facility] [address] [place] [address] Azra Geronimo, LAVENDER FARM WORKER-C Three [facility]. [address] [place] [address] 03/05/2025 8:20 AM CDT Office Visit [facility] Medical Group Multispecialty Care - [facility] [address] [facility] [address] [place] [address] Winston Javed DO 3 [facility] [address] [place] [address] documented as of this encounter Visit Diagnoses Not on filedocumented in this encounter Additional Health Concerns Infection Onset Date Last Indicated Resolved Time COVID-19 Rule Out 09/03/2021 09/03/2021 09/03/2021 2:09 PM COLLECTION SYSTEMS CONSULTANT COVID-19 Rule Out 04/12/2023 04/12/2023 04/12/2023 1:26 PM CDT COVID-19 Confirmed 04/12/2023 04/12/2023 12:32 AM CDT Assessment Noted Time PHQ-9 Depression Total Score: 3 11/19/19 21 10:26 AM CDT documented as of this encounter Care Teams Command Center Analyst Relationship Specialty Start Date End Date Melissa Kunz NP [address] [place] [address] PCP - General NURSE PRACTITIONER 04/21/21 03/17/24 Desiree Horvath MD [address] [place] [address] PCP - General 03/18/24 Dyllan Pulido MD CARDIOVASCULAR DISEASE 11/18/20 Jasper Rubalcava MD GASTROENTEROLOGY 11/18/20 documented as of this encounter
--- OUTSIDE RECORDS SUMMARY | 2024-09-14 02:19 | XMS_ITS | Continuity of Care Document ---
Author Organization [facility] Address [address] [place] [address] [place] [address] Phone Care Team Providers Care Dentist Name Role Phone Eliazar Isabel Unavailable Unavailable Procedures Procedure Date Eye Exam, New Patient Ophthalmoscopy Advance Directives Directive Yes / No Effective Date File Name No Information Encounters Encounter Description Practice Location Reason(s) For Visit Diagnoses Date Provider Providers Copied on Encounter [facility], [address], [place], [place], [id number], [place] tel:[phone] [facility] No Information 0 8-201 0 Chalo Perea. [address] [place], [address], [place]. tel:[phone] Referring Provider: Bertha Peterson OD, [address] [place], [address]. tel:[phone] Family History Family Member Type Diagnosis Age At Onset No Information Payers Payer name Insurance type Covered alliance party ID Authoriza tion(s) No Information Social [...]
--- OUTSIDE RECORDS SUMMARY | 2024-09-14 02:19 | XMS_ITS | Encounter Summary ---
Author Organization [facility] Address [address] [place] [address]. [place] [address] [place] [address] Care Team Providers Care Chief Of Internal Medicine Name Role Phone Dyllan Pulido MD Unavailable Jasper Rubalcava MD Unavailable [phone] Melissa Kunz NP Primary Care Provider [phone] Desiree Horvath MD Primary Care Provider + Encounter Details Date Type Department Care Team (Late st Contact Info) Description 09/03/2021 WSN Systems Message Enc [facility] Medical Group Family Medicine - [place] [address] [place] [address] mySBX, [facility] Provider Covid results Social History Tobacco Use [...] Sex Assigned at Female 09/04/2024 10:05 AM ASSOCIATE DATA SCIENTIST Legal Sex Female 9:10 AM CDT Gender Identity Female 08/28/2021 3:59 PM ASSOCIATE DATA SCIENTIST Sexual Orientation Straight 08/28/2021 3: 59 PM ASSOCIATE DATA SCIENTIST COVID-19 Exposure Response Date Recorded In the last month, have you been in contact with someone who was confirmed or suspected to have Coronavirus / COVID-19? No / Unsure 09/01/2021 1:36 PM ASSOCIATE DATA SCIENTIST documented as of this encounter Plan of Treatment Upcoming Encounters Date Type Department Care Team (Late st Contact Info) Description 09/17/2024 12:45 PM ASSOCIATE DATA SCIENTIST Office Visit [facility] Physical Therapy [address] [place] [address] Desiree Horvath MD [address] [place] [address] Luh Barry, PT 1 [place] [address] 12/03/2024 10:10 AM CDT Office Visit [facility] Medical Group Family Medicine - [place] [address] [place] [address] Desiree Horvath MD [address] [facility] [address] [place] [address] 01/15/2025 10:15 AM CDT Appointment [facility] CT [address] [place] [address] Winston Javed DO 3 [facility] [address] [place] [address] 01/21/2025 10:[address] [facility] Ul[facility]ound [address] [place] [place] [phone] Kenyon Butt MD Three [facility]. [address] [place] [address] 02/20/2025 9:30 AM CDT Office Visit [facility] [address] [place] [address] Azra Geronimo, NET MOBILE DEVELOPER-C Three [facility]. [address] [place] [address] 03/05/2025 8:20 AM CDT Office Visit [facility] Medical Group Multispecialty Care - [facility] [address] [facility] [place] [address] Winston Javed DO [address] [facility] [address] [place] [address] documented as of this encounter Visit Diagnoses Not on filedocumented in this encounter Additional Health Concerns Infection Onset Date Last Indicated Resolved Time COVID-19 Rule Out 09/03/2021 09/03/2021 09/03/2021 2:09 PM ASSOCIATE DATA SCIENTIST COVID-19 Rule Out 04/12/2023 04/12/2023 04/12/2023 1:26 PM CDT COVID-19 Confirmed 04/12/2023 04/12/2023 12:32 AM CDT Assessment Noted Time PHQ-9 Depression Total Score: 3 11/19/19 21 10:26 AM CDT documented as of this encounter Care Teams Chief Of Internal Medicine Relationship Specialty Start Date End Date Melissa Kunz NP [address] [place] [address] PCP - General NURSE PRACTITIONER 04/21/21 03/17/24 Desiree Horvath MD [address] [place] [address] PCP - General 03/18/24 Dyllan Pulido MD CARDIOVASCULAR DISEASE 11/18/20 Jasper Rubalcava MD GASTROENTEROLOGY 11/18/20 documented as of this encounter
--- OUTSIDE RECORDS SUMMARY | 2024-09-14 02:19 | XMS_ITS | Encounter Summary ---
Author Organization [facility] Address [address] [place] [address]. [place] [address] [place] [address] Care Team Providers Care Regulatory Product Manager Name Role Phone Dyllan Pulido MD Unavailable Jasper Rubalcava MD Unavailable [phone] Melissa Kunz NP Primary Care Provider [phone] Desiree Horvath MD Primary Care Provider + Encounter Details Date Type Department Care Team (Late st Contact Info) Description 07/22/2022 Qumas Message Enc [facility] [address] [address] Mychart, [facility] Provider Lab results Social History Tobacco Use [...] Sex Assigned at Female 09/04/2024 10:05 AM TILE BURNER Legal Sex Female 9:10 AM CDT Gender Identity Female 08/28/2021 3:59 PM TILE BURNER Sexual Orientation Straight 08/28/2021 3: 59 PM TILE BURNER COVID-19 Exposure Response Date Recorded In the last 10 days, have rubén u been in contact with someone who was confirmed or suspected to have Coronavirus/COVID-19? No / Unsure 07/20/2022 9:03 AM TILE BURNER documented as of this encounter Plan of Treatment Upcoming Encounters Date Type Department Care Team (Late st Contact Info) Description 09/17/2024 12:45 PM TILE BURNER Office Visit [facility] Physical Therapy [address] [place] [address] Desiree Horvath MD [address] [place] [address] Luh Barry, PT 1 [place] [address] 12/03/2024 10:10 AM CDT Office Visit [facility] Medical Group Family Medicine - [place] [address] [place] [address] Desiree Horvath MD [address] [facility] [address] [place] [address] 01/15/2025 10:15 AM CDT Appointment [facility] CT [address] [place] [address] Winston Javed DO [address] [facility] [address] [place] [address] 01/21/2025 10:00 AM CDT Appointment [facility] Ultrasound [address] [place], [place] [phone] Kenyon Butt MD Three [facility]. [address] [place] [address] 02/20/2025 9:30 AM CDT Office Visit [facility] [address] [place] [address] Azra Geronimo, FRIT MIXER AND BURNER-C Three [facility]. [address] [place] [address] 03/05/2025 8:20 AM CDT Office Visit [facility] Medical Group Multispecialty Care - [facility] [address] [place] [address] Winston Javed DO [address] [facility] [address] [place] [address] documented as of this encounter Visit Diagnoses Not on filedocumented in this encounter Additional Health Concerns Infection Onset Date Last Indicated Resolved Time COVID-19 Rule Out 04/12/2023 04/12/2023 04/12/2023 1:26 PM CDT COVID-19 Confirmed 04/12/2023 04/12/2023 12:32 AM CDT Assessment Noted Time PHQ-9 Depression Total Score: 3 11/19/19 21 10:26 AM CDT documented as of this encounter Care Teams Regulatory Product Manager Relationship Specialty Start Date End Date Melissa Kunz NP [address] [place] [address] PCP - General NURSE PRACTITIONER 04/21/21 03/17/24 Desiree Horvath MD [address] [place] [address] PCP - General 03/18/24 Dyllan Pulido MD CARDIOVASCULAR DISEASE 11/18/20 Jasper Rubalcava MD GASTROENTEROLOGY 11/18/20 documented as of this encounter
== END 2024-09-12 16:36 | disposition home or self-care (01) ==
PROVIDERS: Emergency Provider Emergency Medicine; PCP Nurse Practitioner
DX: S32.021A Stable burst fracture of second lumbar vertebra, initial encounter for closed fracture (principal); I10 Essential (primary) hypertension; E11.9 Type 2 diabetes mellitus without complications; E78.5 Hyperlipidemia, unspecified; K21.9 Gastro-esophageal reflux disease without esophagitis; Z87.891 Personal history of nicotine dependence; Z90.710 Acquired absence of both cervix and uterus; Z79.84 Long term (current) use of oral hypoglycemic drugs; Z79.899 Other long term (current) drug therapy; M84.48XA Pathological fracture, other site, initial encounter for fracture; M47.816 Spondylosis without myelopathy or radiculopathy, lumbar region; X50.0XXA Overexertion from strenuous movement or load, initial encounter; Y93.H1 Activity, digging, shoveling and raking
CPT/HCPCS: 72131; 72192; 99284; A9270

== ENCOUNTER 2024-11-28 08:41 | Outpatient (CLI) | payer MEDICARE, OTHER, SELFPAY ==
--- NOTE | ~2024-11-28 | MM_ITS ---
EXAMINATION: MM screening radha BI w lien HISTORY: Screening TECHNIQUE: Craniocaudal and mediolateral oblique 3-D tomosynthesis images were obtained and synthetic 2-D images were generated. CAD analysis was submitted and interpreted. COMPARISON: Comparison to multiple prior studies sequentially, with oldest reviewed study dated 02/2017. BREAST PARENCHYMAL COMPOSITION: Not dense: There are scattered areas of fibroglandular density. FINDINGS: There is no evidence of suspicious mass, calcification, or architectural distortion to sugg est malignancy in either breast. There has been no suspicious interval change. IMPRESSION: 1. No mammographic evidence of malignancy. 2. Recommend routine screening mammography in one year. BI-RADS Category 1: Negative Reviewed, dictated and finalized at location A.
--- OUTSIDE RECORDS SUMMARY | 2024-11-28 09:12 | XMS_ITS | Encounter Summary ---
Author Organization [facility] Address [facility] [place] [address] Care Team Providers Care Employment Educational Coord Name Role Phone Dyllan Pulido MD Unavailable Jasper Rubalcava MD Unavailable [phone] Melissa Kunz NP Primary Care Provider [phone] Desiree Horvath MD Primary Care Provider + Encounter Details Date Type Department Care Team (Late st Contact Info) Description 07/22/2022 ClickHome Message Enc [facility] THREE [address] [address] Cardiovascular Provider Resource Holdingst, [facility] Provider Lab results Social History Tobacco Use [...] Sex Assigned at Female 09/04/2024 10:05 AM FURNITURE MOVER DRIVER Legal Sex Female 9:10 AM CDT Gender Identity Female 08/28/2021 3:59 PM FURNITURE MOVER DRIVER Sexual Orientation Straight 08/28/2021 3: 59 PM FURNITURE MOVER DRIVER COVID-19 Exposure Response Date Recorded In the last 10 days, have yo u been in contact with someone who was confirmed or suspected to have Coronavirus/COVID-19? No / Unsure 07/20/2022 9:03 AM FURNITURE MOVER DRIVER documented as of this encounter Plan of Treatment Upcoming Encounters Date Type Department Care Team (Late st Contact Info) Description 11/28/2024 10:15 AM CDT Office Visit [facility] Physical Therapy [address] [place] [address] Desiree Horvath MD [address] [place] [address] Luh Barry, PT 1 [place] [address] 12/03/2024 10:10 AM CDT Office Visit [facility] Medical Group Family Medicine - [place] [address] [place] [address] Desiree Horvath MD [address] [facility] [address] [place] [address] 12/10/2024 10:40 AM CDT Hospital Encounter [facility] [place] [address] [phone] Sherley Klein MD Three [facility] [address] [place] [address] 12/10/2024 10:40 AM CDT - 12/10/2024 11:00 AM CDT Surgery [facility] [place] [address] [id number] Sherley Klein MD Three [facility] [address] [place] [address] INJECTION EPIDURAL TRANSFORAMINAL-L5- S1 01/15/2025 10:15 AM CDT Appointment [facility] CT [address] [facility] [address] [place] [address] Winston Javed DO [address] [facility] [address] [place] [address] 01/21/2025 10:00 AM CDT Appointment [facility] Ultrasound [address] [place] [address] Kenyon Butt MD Three [facility]. [address] [place] [address] 02/20/2025 9:30 AM CDT [facility] [address] [place] [address] Azra Geronimo, CHEESE SPECIALIST-C Three [facility]. [address] [place] [address] 03/05/2025 8:20 AM CDT Office Visit [facility] Medical Group Multispecialty Care - [facility] 3 [facility] [address] [place] [address] Winston Javed DO [address] [facility] [address] [place] [address] Scheduled Procedures Name Priority Associated Diagnoses Date/Ti me INJECTION EPIDURAL TRANSFORAMINAL Lumbar radiculopathy 12/10/2024 10:40 AM CDT documented as of this encounter Visit Diagnoses Not on filedocumented in this encounter Additional Health Concerns Infection Onset Date Last Indicated Resolved Time COVID-19 Rule Out 04/12/2023 04/12/2023 04/12/2023 1:26 PM CDT COVID-19 Confirmed 04/12/2023 04/12/2023 12:32 AM CDT Assessment Noted Time PHQ-9 Depression Total Score: 3 11/19/19 21 10:26 AM CDT documented as of this encounter Care Teams Employment Educational Coord Relationship Specialty Start Date End Date Melissa Kunz NP [address] [place] [address] PCP - General NURSE PRACTITIONER 04/21/21 03/17/24 Desiree Horvath MD [address] [place] [address] PCP - General 03/18/24 Dyllan Pulido MD CARDIOVASCULAR DISEASE 11/18/20 Jasper Rubalcava MD GASTROENTEROLOGY 11/18/20 documented as of this encounter
--- OUTSIDE RECORDS SUMMARY | 2024-11-28 09:12 | XMS_ITS | Clinical Summary ---
Author Organization [facility] Address [address] [place] [address] Care Team Providers Care Electric Container Tester Name Role Phone Dyllan Pulido MD Unavailable Jasper Rubalcava MD Unavailable [phone] Desiree Del Rio MD Primary Care Provider + Allergies Active Allergy Reactions Criticality Noted Date Comments Bacitracin Unknown 04/12/2023 Metformin GI Upset 03/19/2024 severe Neomycin Rash Medium 12/28/2018 Neomycin-Bacitracin Zn-Polymyx Rash Medium 12/28 Onnnqbad-Sblmphcuu-Lvuersjtyg Rash Medium 2019 Penicillins Nausea and Vomiting Low 04/29/2020 Polymyxin B Unknown 04/12/2023 Medications aspirin EC (ASPIRIN EC) 81 MG tablet 1 tablet (81 mg total). 03/19/20 14 Active [place]-3 Fatty Acids (FISH OIL) 1200 MG Cap [...] mononitrate ER (IMDUR) 30 MG 24 hr tabletIndications :Hypertension, unspecified type Take 1 tablet (30 mg total) by mouth daily. 90 tablet 3 01/12/20 24 Active levothyroxine (SYNTHROID) 50 MCG tabletIndications :Hypothyroidism, unspecified type Take 1 tablet (50 mcg total) by mouth every morning. 90 tablet 3 01/12/20 24 Active rosuvastatin (CRESTOR) 40 MG tabletIndications :Hyperlipidemia, unspecified hyperlipidemia type Take 1 tablet (40 mg total) by mouth nightly at bedtime. 90 tablet 3 01/12/20 24 Active hydroCHLOROthiazi de (MICROZIDE) 12.5 MG capsuleIndication s:Hypertension, unspecified type Take 1 capsule (12.5 mg total) by mouth every morning. 90 capsule 3 02/08/20 24 Active nystatin (MYCOSTATIN) powderIndications :Intertrigo Apply topically 4 (four) times daily. Apply under breasts and in groin 60 g 11 02/17/20 24 Active meloxicam (MOBIC) 15 MG tabletIndications :Pain of both heels Take 1 tablet (15 mg total) by mouth daily as needed. 90 tablet 05/31/20 24 Active RABEprazole EC (ACIPHEX) 20 MG tabletIndications :Gastroesophageal reflux disease, unspecified whether esophagitis present Take 1 tablet (20 mg total) by mouth daily. Put on file. 90 tablet 3 07/23/20 24 Active traMADol (ULTRAM) 50 MG tabletIndications :Chronic Pain Take 1 tablet (50 mg total) by mouth daily as needed for Pain. Indications: Chronic Pain Each supply to last one month. 30 tablet 2 08/10/20 24 Active HYDROcodone-aceta minophen (NORCO) 5-325 MG tablet Take 1 tablet by mouth every 8 (eight) hours as needed. 09/12/19 25 Active pregabalin (LYRICA) 50 MG capsuleIndication s:Acute bilateral low back pain with left-sided sciatica,Chronic bilateral low back pain, unspecified whether sciatica present TAKE 1 CAPSULE(50 MG) BY MOUTH TWICE DAILY 60 capsule 5 11/06/19 25 Active glipiZIDE XL (GLUCOTROL XL) 10 MG 24 hr tabletIndications :Type 2 diabetes mellitus with diabetic neuropathy, without long-term current use of insulin ([facility]) TAKE 1 TABLET(10 MG) BY MOUTH DAILY WITH BREAKFAST. DO NOT BREAK OR CRUSH TABLET 90 tablet 1 11/27/19 25 Active glipiZIDE XL 10 MG 24 hr tabletIndications :Type 2 diabetes mellitus with diabetic neuropathy, without long-term current use of insulin ([facility]) Take 1 tablet (10 mg total) by mouth daily with breakfast. Do not break or crush tablet 90 tablet 1 05/31/20 24 025 Discontinued pregabalin (LYRICA) 50 MG capsuleIndication s:Acute bilateral low back pain with left-sided sciatica,Chronic bilateral low back pain, unspecified whether sciatica present Take 1 capsule (50 mg total) by mouth 2 (two) times daily for 30 days. 60 capsule 10/04/19 25 025 Discontinued Active Problems Problem Noted Date Diagnosed Date Lumbar radiculopathy 11/08/2024 Achilles tendinitis of both lower extremities Overview [...] monthly. Assessment & Plan (08/10/2024 12:20 PM FRETTED STRING INSTRUMENT REPAIRER): Increase tramadol to daily as needed especially [...] neuropathy, without long-term current use of insulin ([facility]) 12/18/2021 Overview (05/31/2024): Last A1c 7.1% in [...] PPI. Assessment & Plan (07/23/2024 3:44 PM FRETTED STRING INSTRUMENT REPAIRER): Chronic and not controlled. Resume rabeprazole. Benefits [...] and isosorbide mononitrate. Await CMP-lab issue with [place]. Assessment & Plan (03/19/2024 10:14 AM CDT): Not controlled today but was previously very well-controlled. Will hold off on any adjustments and recommend that she monitor her blood pressures at home. Continue hydrochlorothiazide and isosorbide mononitrate. Resolved Problems Problem Noted Date Diagnosed Date Resolved Date Hypercortisolism (HHS/HCC) 12/18/2021 0 04/13/2022 Vertigo 12/18/2021 06/08/2022 Restless leg syndrome 11/23/20212021 Fall, subsequent encounter 09/07/2021 0 12/16/2022 Abdominal hernia 06/06/2020 10/21/2020 Spigelian hernia 06/06/2020 10/21/2020 Back muscle spasm 05/23/2020 05/29/2020 Constipation, unspecified constipation type 05/05/2020 06/08/2022 Generalized abdominal pain 05/05/2020 1 Angina pectoris 04/29/2020 12/18/2021 Ex-cigar smoker 04/29/2020 05/29/2020 Encounters Date Type Department Care Team Description 11/27/2024 Patient Outreach [facility] [place] [address] [facility] [address] [place] [phone] Desiree Del Rio MD Pre-visit [place] Cl[place] 11/08/2024 9:12 AM CDT - 11/08/2024 11:59 PM CDT Hospital Encounter [facility] [place] [address] [id number] Kristine Zayas, BILL OF LADING CLERK Discharge Disposition: Home or Self Care (Routine Discharge) 11/08/2024 Travel 11/06/2024 12:20 PM CDT Office Visit [facility] [address] [facility] [address] [place] [phone] Desiree Del Rio MD MRI Results (Patient is here today to review MRI results. ) 11/06/2024 Travel 11/05/2024 10:15 AM CDT Office Visit [facility] Physical Therapy [address] [place] [address] Desiree Del Rio MD Weedon, Meaghan B, PT Back Pain 11/05/2024 Travel 10/30/2024 1:51 PM CDT - 10/30/2024 11:59 PM CDT Hospital Encounter [facility] [place] [address] [place] [address] Desiree Del Rio MD Discharge Disposition: Home or Self Care (Routine Discharge) 10/30/2024 Travel 10/24/2024 12:45 PM FRETTED STRING INSTRUMENT REPAIRER Office Visit [facility] [address] [place] [address] Desiree Del Rio MD Weedon, Meaghan B, PT Back Pain 10/24/2024 Travel 10/15/2024 9:45 AM FRETTED STRING INSTRUMENT REPAIRER Office Visit [facility] Therapy [address] [place] [address] Desiree Del Rio MD Weedon, Meaghan B, PT Back Pain 10/15/2024 Travel 10/12/2024 9:10 AM FRETTED STRING INSTRUMENT REPAIRER Allied Health/Nurse Visit [address] [place] [address] Desiree Del Rio MD Lab Draw 10/12/[address] [place] [address] Desiree Del Rio MD Other 10/12/2024 Travel 10/08/2024 MyChart Message Enc [address] [place] [address] Desiree Del Rio MD Diverticulitis 10/04/2024 9:50 AM FRETTED STRING INSTRUMENT REPAIRER Office Visit [address] [place] [address] Desiree Del Rio MD Back Pain (She states that she is getting treated for a wrong back issue. She has copies of some CT scans of back and pelvis. ) 10/04/2024 Travel 10/01/2024 Telephone [facility] [address] [place] [address] Nasima Cao, BUILDING SERVICES SUPERVISOR No Show 09/26/2024 10:15 AM FRETTED STRING INSTRUMENT REPAIRER Office Visit [facility] Therapy [address] [place] [address] KrystowDesiree cheatham MD Weedon, Meaghan B, PT Back Pain 09/26/2024 Travel 09/17/2024 12:45 PM FRETTED STRING INSTRUMENT REPAIRER Office Visit [facility] [address] [place] [address] Desiree Del Rio MD Weedon, Meaghan B, PT Back Pain 09/17/2024 Travel 09/13/2024 1:20 PM FRETTED STRING INSTRUMENT REPAIRER Office Visit [address] [place] [address] Desiree Del Rio MD ER F/U (Was at ER.yest. was dx with closed compression fx of L2 vertebra. She is still in a lot of pain. Pain is on the left side of her body. ) 09/13/[address] [place] [address] Desiree Del Rio MD Refill Request 09/13/2024 Travel 09/12/2024 Scan TYFFON INFO SRVCS Scanned, Doc [facility] CT (SCAN) 09/12/[address] [place] [address] Desiree Del Rio MD Pain 09/04/2024 2:10 PM FRETTED STRING INSTRUMENT REPAIRER Office Visit [address] [place] [address] Desiree Del Rio MD Anxiety (b); Back Pain (Was shoveling snow. Using voltarin on her back. Still in a lot of pain. Middle of back to her hips. Onset- several days. ) 09/04/2024 Travel 09/04/[address] [place] [address] Desiree Del Rio MD Back Pain; Advice from Last 3 Months Immunizations Name Administration [...] Shingrix 06/01/2022,02/27/2022 Tdap (Adacel) 01/07/2021 Zoster (Zostavax) [address]80 Unt/0.65Ml 06/30/2010 Family History Medical History Relation Comments Dementia Father Stroke Father Heart Disease Mother Cancer Sister Relation Status Comments Father Mother Alive Sister Social History Tobacco Use Types Packs/Day Years Used Date Smoking Tobacco: Former Cigarettes 2 - 1967 Passive Smoke Exposure: Past Smokeless Tobacco: Never Tobacco Cessation:Counseling Given: Yes Comments:former smoker Alcohol Use Standard Drinks/Week Comments Yes 0 (1 standard drink = 0.6 oz pur e alcohol) occassional beer with dinner PHQ-2 Answer Date Recorded Patient Health Questionnaire-2 Score 0 09/04/2024 Comments No Sex and Gender Information Value Date Recorded Sex Assigned at Female 09/04/2024 10:05 AM FRETTED STRING INSTRUMENT REPAIRER Legal Sex Female 9:10 AM CDT Gender Identity Female 08/28/2021 3:59 PM FRETTED STRING INSTRUMENT REPAIRER Sexual Orientation Straight 08/28/2021 3: 59 PM FRETTED STRING INSTRUMENT REPAIRER Last Filed Vital Signs Vital Sign Reading Time Taken Comments Blood Pressure 140/64 11/08/2024 9:40 AM CDT Pulse 69 11/08/2024 9:40 AM CDT Temperature 36.1 C (96.9 F) 11/08/2024 9:40 AM CDT Respiratory Rate 20 11/08/2024 9:40 AM CDT Oxygen Saturation 97% 11/08/2024 9:40 AM CDT Inhaled Oxygen Concentration - - Weight 83.9 kg (185 lb) 11/08/2024 9:40 AM CDT Height 165.1 cm (5' 5 ) 11/08/2024 9:40 AM CDT Body Mass Index 30.79 11/08/2024 9:40 AM CDT Plan of Treatment Upcoming Encounters Date Type Department Care Team (Late st Contact Info) Description 11/28/2024 10:15 AM CDT Office Visit [facility] Therapy [address] [place] [address] [phone] Desiree Del Rio MD [address] [facility] [address] [place] [phone] Luh Barry, PT [address] [place] [address] 12/03/2024 10:10 AM CDT Office Visit [facility] - [place] [address] [place] [address] Desiree Del Rio MD [address] [facility] [address] [place] [address] 12/10/2024 10:40 AM CDT Hospital Encounter [facility] [place] [address] [id number] Sherley Klein MD [facility] [address] [place] [address] 12/10/2024 10:40 AM CDT - 12/10/2024 11:00 AM CDT Surgery [facility] [place] [address] [id number] Sherley Klein MD [facility] [address] [place] [address] INJECTION EPIDURAL TRANSFORAMINAL-L5- S1 01/15/2025 10:15 AM CDT Appointment [facility] [address] [place] [address] Winston Javed DO [address] [facility] [address] [place] [address] 01/21/2025 10:00 AM CDT Appointment [facility] [address] [place] [address] Kenyon Butt MD [facility] [place] [address] 02/20/2025 9:30 AM CDT [facility] [address] [place] [phone] Azra Geronimo, SENIOR COMMUNICATIONS ENGINEER-C [facility]. [address] [place] [address] 03/05/2025 8:20 AM CDT Office Visit [facility] Multispecialty Care - [address] [place] [address] Winston Javed DO [address] [facility] [address] [place] [address] Scheduled Procedures Name Priority Associated Diagnoses Date/Ti me INJECTION EPIDURAL TRANSFORAMINAL Lumbar radiculopathy 12/10/2024 10:40 AM CDT Health Maintenance Due Date Last Done Comments Kidney Health Evaluation 1950 COVID-19 Vaccine ( season) 2024 11/12/2020, 10/15/2020 RSV Immunization or 60+ Years (1 - 1-dose 75+ series) 2024 ASCVD LDL 11/13/2024 11/14/2023, 2 11/2022, 12/16/2021, Additional history exists Lipid Panel 11/13/2024 11/14/2023, 2 11/2022, 12/16/2021, Additional history exists Hemoglobin A1C 11/29/2024 05/31/2024, 10/21, 12/13/2022, Additional history exists Annual Medicare Wellness Visit 11/30/2024 11/18/2020 Postponed from 11/19/2021 (Patient Refused) Diabetes: Retinopathy Eye Exam 01/27/2025 01/27/2023 Colorectal Cancer Screening Colonoscopy (10 Years) 03/13/2029 03/13/2019 DTaP, Tdap and Td Vaccines (2 - Td or Tdap) 01/07/2031 01/07/2021 Pneumococcal Vaccine: 65+ Years Completed 06/25/2018, 08/22/2016 Dexa Scan (General) Completed 07/07/2021, 9 Hepatitis C Completed 01/01/2022, 04/22/2021 Zoster Vaccines Completed 06/01/2022, 0704/2022, 06/30/2010 PHQ-2 (Physician [place]) Completed 09/04/2024 Meningococcal B Vaccine Aged Out No l onger eligible based on patient's age to complete this topic Meningococcal Vaccine Aged Out No juan c sarah eligible based on patient's age to complete this topic RSV Immunizations Under 20 Months Aged Out No longer eligible based on patient's age to complete this topic Procedures Procedure Name Priority Date/Time Associated Diagnosis Comments MRI LUMB SPINE WWO CON Routine 10/30/2024 3:10 PM CDT Acute bilateral low back pain with left-sided sciatica Lumbar radiculopathy COLLECTION VENOUS BLOOD VENIPUNCTURE Routine 10/12/2024 9:25 AM FRETTED STRING INSTRUMENT REPAIRER Lower abdominal pain CBC W/DIFF AUTOMATED Routine 10/12/2024 9:24 AM FRETTED STRING INSTRUMENT REPAIRER Lower abdominal pain COMPREHENSIVE METABOLIC PANEL Routine 10/12/2024 9:24 AM FRETTED STRING INSTRUMENT REPAIRER Lower abdominal pain CT GENERIC 09/12/2024 CT GENERIC 09/12/2024 HEMOGLOBIN, GLYCOSYLATED Today 05/31/2024 Type 2 diabetes mellitus with diabetic neuropathy, without long-term current use of insulin (CMS/HCC HHS/HCC) LIPID PANEL Routine 11/14/2023 8:51 AM CDT DIABETIC RETINOPATHY EXAM (NEGATIVE)(SCAN ORDER) Routine 01/27/2023 HEPATITIS C ANTIBODY W/RFX TO HCV RNA Routine 01/01/2022 9:04 AM CDT Need for hepatitis C screening test BONE DENSITY/DEXA Routine 07/07/2021 12: 00 AM FRETTED STRING INSTRUMENT REPAIRER Osteopenia, unspecified location Postmenopausal COLONOSCOPY GENERIC (SCAN ORDER) Routine 03/13/2019 12:00 AM CDT from Last 3 Months or Most Recently Relevant to Health Maintenance Results * MRI LUMB SPINE WWO CON (10/30/2024 3:10 PM CDT) Anatomical Region Laterality Modality Spine Magnetic Resonan ce 11/02/2024 3:46 PM CDT Impressions 11/02/2024 3:54 PM CDT IMPRESSION: 1. Acute to subacute compression fracture of L2 with depression of the inferior endplate and 10% loss of height. No retropulsed fragments. 2. Severe neuroforaminal stenosis on the left at L5/S1 due to disc bulging and a left foraminal disc extrusion that contacts the exiting left L5 nerve root, unchanged. 3. No significant lumbar central canal stenosis. There is mild effacement of ventral thecal sac at T12/L1 due to a small midline disc extrusion, unchanged compared to the prior MRI of 09/02/2021. Referred By: DESIREE DEL RIO Interpreted By: Juanito Rosen MD, 11/02/2024 3:46 PM Narrative 11/02/2024 3:54 PM CDT [facility] [address] [place] [id number] EXAMINATION:MRI of the lumbar spine with and without contrast 10/30/2024 INDICATION:Lumbar radiculopathy TECHNIQUE: Multiplanar multisequence MR imaging of the lumbar spine was performed prior to and following administration of 15 mL of Dotarem contrast intravenously. COMPARISON: Lumbar spine MRI 09/02/2021 FINDINGS: The last fully formed disc space is presumed represent L5/S1. Lumbar spine is in anatomic alignment. There is an acute to subacute compression fracture of L2 with depression of the inferior endplate and approximately 10% loss of height. Abnormal increased STIR signal and decreased T1 signal is noted throughout the L2 vertebral body. The posterior wall is intact with no retropulsed fragments. There is a large broad-based Schmorl's node within the superior endplate of L5, unchanged. No ligamentous discontinuity or signal abnormality. The conus terminates at L1/L2 and is unremarkable contour and signal. No paraspinal mass or fluid collection. The visualized abdominal aorta is unremarkable in contour. The upper sacral joint spaces are unremarkable T1/T12: Mild disc space narrowing T12/L1: Disc space narrowing with a small broad-based midline disc extrusion causing slight effacement of ventral thecal sac, unchanged. The thecal sac measures 11 mm L1/L2: Mild disc bulging L2/L3: Disc space narrowing L3/L4: Minimal disc bulging L4/L5: Mild disc space narrowing disc bulging and facet arthropathy causing mild encroachment upon the neural foramina, unchanged L5/S1: Disc space narrowing and disc bulging with a left foraminal disc extrusion causing severe left neural foraminal stenosis with contact of the exiting left L5 nerve root and mild right neural foraminal stenosis, unchanged. There is enhancement within the L2 vertebral body corresponding to the area of decreased T1 signal and increased STIR signal. No other abnormal enhancement. Procedure Note Juanito Rosen MD - 11/02/2024 [facility] [address] [place] [id number] EXAMINATION:MRI of the lumbar spine with and without contrast 10/30/2024 INDICATION:Lumbar radiculopathy TECHNIQUE: Multiplanar multisequence MR imaging of the lumbar spine wasperformed prior to and following administration of 15 mL of Dotaremcontrast intravenously. COMPARISON: Lumbar spine MRI 09/02/2021 FINDINGS: The last fully formed disc space is presumed represent L5/S1.Lumbar spine is in anatomic alignment. There is an acute to subacute compression fracture of L2 with depressionof the inferior endplate and approximately 10% loss of height. Abnormalincreased STIR signal and decreased T1 signal is noted throughout the C3vpbjmeoon body. The posterior wall is intact with no retropulsedfragments. There is a large broad-based Schmorl's node within the superior endplateof L5, unchanged. No ligamentous discontinuity or signal abnormality.The conus terminates at L1/L2 and is unremarkable contour and signal. Noparaspinal mass or fluid collection. The visualized abdominal aorta isunremarkable in contour. The upper sacral joint spaces are unremarkable T1/T12: Mild disc space narrowing T12/L1: Disc space narrowing with a small broad-based midline discextrusion causing slight effacement of ventral thecal sac, unchanged. Thethecal sac measures 11 mm L1/L2: Mild disc bulging L2/L3: Disc space narrowing L3/L4: Minimal disc bulging L4/L5: Mild disc space narrowing disc bulging and facet arthropathycausing mild encroachment upon the neural foramina, unchanged L5/S1: Disc space narrowing and disc bulging with a left foraminal discextrusion causing severe left neural foraminal stenosis with contact ofthe exiting left L5 nerve root and mild right neural foraminal stenosis,unchanged. There is enhancement within the L2 vertebral body corresponding to thearea of decreased T1 signal and increased STIR signal. No other abnormalenhancement. IMPRESSION: 1. Acute to subacute compression fracture of L2 with depression of theinferior endplate and 10% loss of height. No retropulsed fragments. 2. Severe neuroforaminal stenosis on the left at L5/S1 due to discbulging and a left foraminal disc extrusion that contacts the exiting leftL5 nerve root, unchanged. 3. No significant lumbar central canal stenosis. There is mildeffacement of ventral thecal sac at T12/L1 due to a small midline discextrusion, unchanged compared to the prior MRI of 09/02/2021. Referred By: DESIREE DEL RIO Interpreted By: Juanito Rosen MD, 11/02/2024 3:46 PM us Desiree Del Rio MD MRI Final Re sult * (ABNORMAL) COMPREHENSIVE METABOLIC PANEL (10/12/2024 9:24 AM FRETTED STRING INSTRUMENT REPAIRER) Pathologist [facility] SODIUM S/P/B 143 136 - 145 MMOL/L 10/12/2024 3:26 PM FRETTED STRING INSTRUMENT REPAIRER [facility] POTASSIUM S/P/B 5.1 3.5 - 5.1 MMOL/L 10/12/2024 3:26 PM FRETTED STRING INSTRUMENT REPAIRER [facility] CHLORIDE S/P/B 104 98 - 107 MMOL/L 10/12/2024 3:26 PM FRETTED STRING INSTRUMENT REPAIRER [facility] CO2 33.8(H) 21 - 32 MMOL/L 10/12/2024 3:41 PM FRETTED STRING INSTRUMENT REPAIRER [facility] Comment:RESULTS CONFIRMED-TE ST REPEATED GLUCOSE 147(H) 70 - 99 MG/DL 10/12/2024 3:26 PM [facility] BUN 10 7 - 18 MG/DL 10/12/2024 3:26 PM FRETTED STRING INSTRUMENT REPAIRER [facility] CREATININE S/P/B 0.87 0.55 - 1.02 MG/DL 10/12/2024 3:26 PM FRETTED STRING INSTRUMENT REPAIRER [facility] CALCIUM S/P/B 9.7 8.4 - 10.5 MG/DL 10/12/2024 3:26 PM [facility] BILIRUBIN TOTAL S/P/B 0.5 0.2 - 1.0 MG/DL 10/12/2024 3:26 PM FRETTED STRING INSTRUMENT REPAIRER [facility] ALKALINE PHOSPHATASE S/P/B 91 55 - 142 U/L 10/12/2024 3:26 PM FRETTED STRING INSTRUMENT REPAIRER [facility] AST 21 15 - 37 U/L 10/12/2024 3:26 PM FRETTED STRING INSTRUMENT REPAIRER [facility] ALT 36 14 - 59 U/L 10/12/2024 3:26 PM FRETTED STRING INSTRUMENT REPAIRER [facility] TOTAL PROTEIN S/P/B 6.5 6.4 - 8.2 G/DL 10/12/2024 3:26 PM [facility] ALBUMIN S/P/B 3.7 3.4 - 5.0 G/DL 10/12/2024 3:26 PM FRETTED STRING INSTRUMENT REPAIRER [facility] ANION GAP 5.2 5 - 15 MMOL/L 10/12/2024 3:41 PM FRETTED STRING INSTRUMENT REPAIRER [facility] Comment:REFERENCE RANGE NOT ESTABLISHED OSMOLALITY (CALC) 298 MOSM/KG 025 3:26 PM [facility] Comment:REFERENCE RANGE NOT ESTABLISHED GFR ESTIMATE 69(L) >90 ML/MIN/1. 73 M2 10/12/2024 3:26 PM FRETTED STRING INSTRUMENT REPAIRER [facility] GFR NOTES GFR REFERENCE S: 10/12/2024 3:26 PM [facility] Comment: THE ESTIMATED GFR IS CALCULATED USING THE 2020 CKD-EPI EQUATION. THE FOLLOWING CATEGORIES FOR GRADING RENAL FUNCTION ARE RECOMMENDED BY THE INTERNATIONAL SOCIETY OF NEPHROLOGY (KDIGO 2012 CLINICAL PRACTICE GUIDELINE). G1,NORMAL OR HIGH: >89 ml/min/1.73 m2 G2,MILDLY DECREASED: 60-89 ml/min/1.73 m2 G3A,MILDLY TO MODERATELY DECREASED: 45-59 ml/min/1.73 m2 G3B,MODERATELY TO SEVERELY DECREASED: 30-44 ml/min/1.73 m2 G4,SEVERELY DECREASED: 15-29 ml/min/1.73 m2 G5,KIDNEY FAILURE: <15 ml/min/1.73 m2 10/12/2024 9:24 AM FRETTED STRING INSTRUMENT REPAIRER us Desiree Del Rio MD LABORATORY Final Re sult -[facility] [address] [place] [address], [place] [phone] * (ABNORMAL) CBC W/DIFF AUTOMATED (10/12/2024 9:24 AM FRETTED STRING INSTRUMENT REPAIRER) [facility] WBC 7.95 4.00 - 10.80 x10'3/uL 10/12/2024 3:05 PM [facility] RBC 5.60(H) 4.10 - 5.40 x10'6/uL 10/12/2024 3:05 PM [facility] HGB 16.2(H) 12.0 - 16.0 G/DL 10/12/2024 3:05 PM [facility] HCT 50.0(H) 36.0 - 47.0 % 10/12/2024 3:05 PM [facility] MCV 89.3 78.0 - 100.0 FL 10/12/2024 3:05 PM [facility] MCH 28.9 27.0 - 31.0 PG 10/12/2024 3:05 PM [facility] MCHC 32.4(L) 33.0 - 36.0 G/DL 10/12/2024 3:05 PM [facility] RDW 12.9 11.5 - 14.5 % 10/12/2024 3:05 PM [facility] [facility]T 265 150 - 350 x10'3/uL 10/12/2024 3:05 PM [facility] MPV 9.5 7.4 - 10.4 FL 10/12/2024 3:05 PM [facility] DIFFERENTIAL TYPE AUTOMATED DIFFERENTIAL 10/12/2024 3:05 PM [facility] NEUTROPHILS % 52.9 % 10/12/2024 3:05 PM [facility] LYMPHOCYTES % 32.2 % 10/12/2024 3:05 PM [facility] MONOCYTES % 7.0 % 10/12/2024 3:05 PM [facility] EOSINOPHILS % 6.8 % 10/12/2024 3:05 PM [facility] BASOPHILS % 1.0 % 10/12/2024 3:05 PM [facility] IMMATURE GRANS % 0.1 % 10/12/2024 3:05 PM [facility] ABS. NEUTROPHILS 4.20 1.60 - 8.30 x10'3/uL 10/12/2024 3:05 PM FRETTED STRING INSTRUMENT REPAIRER [facility] ABS. LYMPHOCYTES 2.56 0.80 - 4.70 x10'3/uL 10/12/2024 3:05 PM FRETTED STRING INSTRUMENT REPAIRER [facility] ABS. MONOCYTES 0.56 0.00 - 1.50 x10'3/uL 10/12/2024 3:05 PM [facility] ABS. EOSINOPHILS 0.54(H) 0.00 - 0.40 x10'3/uL 10/12/2024 3:05 PM [facility] ABS. BASOPHILS 0.08 0.00 - 0.20 x10'3/uL 10/12/2024 3:05 PM [facility] ABS. IMMATURE GRANULOCYTES 0.01 0.00 - 0.03 x10'3/uL 10/12/2024 3:05 PM [facility] 10/12/2024 9:24 AM FRETTED STRING INSTRUMENT REPAIRER us Desiree Del Rio MD LABORATORY Final Re sult [facility] [address] [place] [address], * CT GENERIC (09/12/2024) Only the most recent of2 resultswithin the time period is included. Anatomical Region Laterality Modality Other 09/12/2024 us [facility] Scanned SCANNING Final Resu lt * HEMOGLOBIN, GLYCOSYLATED (05/31/2024) HGB A1C 7.6 % [address], [place] 05/31/2024 Desiree Del Rio MD LABORATORY Final Re sult [address], [place] [address] [place] [address], * (ABNORMAL) LIPID PANEL (11/14/2023 8:51 AM CDT) CHOLESTEROL 122 <200 mg/dL [facility] [employer] [facility] HDL 49(L) > OR = 50 mg/dL [employer] [facility] TRIGLYCERIDES 183(H) <150 mg/dL [employer] [facility] LDL (CALCULATED) 47 mg/dL (calc) [facility] DIAGNOSTICS [facility] Comment: Reference range: <100 Desirable range <100 mg/dL for primary prevention; <70 mg/dL for patients with CHD or diabetic patients with > or = 2 CHD risk factors. LDL-C is now calculated using the Jose-Story calculation, which is a validated novel method providing better accuracy than the Friedewald equation in the estimation of LDL-C. Jose SS et al. SHANIQUA. 2013;310(19): 5173-1342 (http://education.Diveboard.Amara/faq/YCS202) CHOL/HDL RATIO 2.5 <5.0 (calc) [facility] DIAGNOSTICS [facility] NON HDL CHOLESTEROL 73 <130 mg/dL (calc) el? DIAGNOSTICS [facility] Comment: For patients with diabetes plus 1 major ASCVD risk factor, treating to a non-HDL-C goal of <100 mg/dL (LDL-C of <70 mg/dL) is considered a therapeutic option. 11/14/2023 8:51 AM CDT 11/14/2023 8:54 AM CDT Narrative el? DIAGNOSTICS - [facility] - 11/18/2023 1:22 AM CDT FASTING:YES FASTING: YES Resulting Agency Comment Performing Organization Information: Site ID: [id number] Name: [facility] Address: [address] [address] Director: Keenan Olivares MD Melissa Kunz SENIOR COMMUNICATIONS ENGINEER LABORATORY Final Res ult Performing Organization Address [facility] Co de Phone Number [facility] el? LILIANE [facility] [address], [place] [address], * DIABETIC RETINOPATHY EXAM (NEGATIVE)(SCAN) (01/27/2023) [facility] Scanned SCANNING Final Resu lt Performing Organization Address [facility] de Phone Number [facility] ONBASE * HEPATITIS C ANTIBODY W/RFX TO HCV RNA ([facility] ONLY) (01/01/2022 9:04 AM CDT) HEPATITIS C AB NON-REACTI VE NON-REACT YOVANA [facility] SIGNAL TO CUTOFF 0.[address] [facility] Comment: HCV antibody was non-reactive. There is no laboratory evidence of HCV infection. In most cases, no further action is required. However, if recent HCV exposure is suspected, a test for HCV RNA (test code 37812) is suggested. For additional information please refer to http://education.iSyndica/faq/UHD89x7 (This link is being provided for informational/ educational purposes only.) 01/01/2022 9:04 AM CDT 01/02/2022 7:12 AM CDT Melissa Kunz NP LABORATORY Final Res ult Performing Organization Address [facility] Co de Phone Number [facility] [address] [address] * BONE DENSITY/DEXA (07/07/2021 12:00 AM FRETTED STRING INSTRUMENT REPAIRER) Anatomical Region Laterality Modality Bone Bone Density 07/07/2021 us Melissaadelfo Kunz SENIOR COMMUNICATIONS ENGINEER DEXA Final Res ult * COLONOSCOPY (03/13/2019 12:00 AM CDT) 03/13/2019 us [facility] Scanned SCANNING Final Resu lt [facility] [address] [address] from Last 3 Months or Most Recently Relevant to Health Maintenance Insurance MEDICARE Care Teams Electric Container Tester Relationship Specialty Start Date End Date Desiree Del Rio MD [address] [place] [address] PCP - General 03/18/24 Dyllan Pulido MD CARDIOVASCULAR DISEASE 11/18/20 Jasper Rubalcava MD GASTROENTEROLOGY 11/18/20
--- OUTSIDE RECORDS SUMMARY | 2024-11-28 09:12 | XMS_ITS | Patient Health Record ---
Author Organization [facility] Address [address] [place], [place] [id number] Care Team Providers Care Recreation Director Name Role Phone Answer, Declined Unavailable Unavailable [...] Date Coverage End Date Medicare Part B [facility] [address] [place] [address] [id number] OLIVIER DRAKE Self - patient is the insured 4 for Life (All Regions) [address] [place], [place] [phone] [id number] OLIVIER DRAKE Self - patient is the insured Medical (General) History Medical History History ICD Code acid reflux Cancer (type of cancer) skin cancer GERD Sleep apnea Back Trouble restless leg syndrome Surgical History Surgery Date(Month/Year) tonsillectomy Hysterectomy Laporoscopy Carpal Tunnel release Gall Bladder Oophorectomy
--- OUTSIDE RECORDS SUMMARY | 2024-11-28 09:12 | XMS_ITS | Encounter Summary ---
Author Organization [facility] Address [address] [place] [address] Care Team Providers Care Grab Operator Name Role Phone Dyllan Pulido MD Unavailable Jasper Rubalcava MD Unavailable Melissa Kunz NP Primary Care Provider [phone] Desiree Horvath MD Primary Care Provider + Encounter Details Date Type Department Care Team (Late st Contact Info) Description 09/03/2021 [email or web address] Message Enc [facility] Medical Group Family Medicine - [place] [address] [place] [address] tomoguidest, [facility] Provider Covid results Social History [...] Sex Assigned at Female 09/04/2024 10:05 AM BARGE ENGINEER Legal Sex Female 9:10 AM CDT Gender Identity Female 08/28/2021 3:59 PM BARGE ENGINEER Sexual Orientation Straight 08/28/2021 3: 59 PM BARGE ENGINEER COVID-19 Exposure Response Date Recorded In the last month, have you been in contact with someone who was confirmed or suspected to have Coronavirus / COVID-19? No / Unsure 09/01/2021 1:36 PM BARGE ENGINEER documented as of this encounter Plan of Treatment Upcoming Encounters Date Type Department Care Team (Late st Contact Info) Description 11/28/2024 10:15 AM CDT Office Visit [facility] Physical Therapy [address] [place], [place] [phone] Desiree Horvath MD [address] [place] [address] Luh Barry, PT 1 [place] [address] 12/03/2024 10:10 AM CDT Office Visit [facility] Medical Group Family Medicine - [place] [address] [place] [address] Desiree Horvath MD [address] [facility] [address] [place] [address] 12/10/2024 10:40 AM CDT Hospital Encounter [facility] Interventional [place] [address] [id number] Sherley Klein MD Three [facility] [address] [place] [address] 12/10/2024 10:40 AM CDT - 12/10/2024 11:00 AM CDT Surgery [facility] [place] [address] [id number] Sherley Klein MD Three [facility] [address] [place] [address] INJECTION EPIDURAL TRANSFORAMINAL-L5- S1 01/15/2025 10:15 AM CDT Appointment [facility] CT [address] [place] [address] Winston Javed DO [address] [facility] [address] [place] [address] 01/21/2025 10:00 AM CDT Appointment [facility] Ultrasound [address] [place] [address] Kenyon Butt MD Three [facility]. [address] [place] [address] 02/20/2025 9:30 AM CDT [facility] [address] [place] [phone] Azra Geronimo, HONEYCOMB BLANKET MAKER-C [facility]. [address] [place] [address] 03/05/2025 8:20 AM CDT Office Visit [facility] Medical Group Multispecialty Care - [address] [place] [address] Winston Javed DO 3 [facility] [address] [place] [address] Scheduled Procedures Name Priority Associated Diagnoses Date/Ti me INJECTION EPIDURAL TRANSFORAMINAL Lumbar radiculopathy 12/10/2024 10:40 AM CDT documented as of this encounter Visit Diagnoses Not on filedocumented in this encounter Additional Health Concerns Infection Onset Date Last Indicated Resolved Time COVID-19 Rule Out 09/03/2021 09/03/2021 09/03/2021 2:09 PM BARGE ENGINEER COVID-19 Rule Out 04/12/2023 04/12/2023 04/12/2023 1:26 PM CDT COVID-19 Confirmed 04/12/2023 04/12/2023 12:32 AM CDT Assessment Noted Time PHQ-9 Depression Total Score: 3 11/19/19 21 10:26 AM CDT documented as of this encounter Care Teams Grab Operator Relationship Specialty Start Date End Date Melissa Kunz NP [address] [place] [address] PCP - General NURSE PRACTITIONER 04/21/21 03/17/24 Desiree Horvath MD [address] [place] [address] PCP - General 03/18/24 Dyllan Pulido MD CARDIOVASCULAR DISEASE 11/18/20 Jasper Rubalcava MD GASTROENTEROLOGY 11/18/20 documented as of this encounter
--- OUTSIDE RECORDS SUMMARY | 2024-11-28 09:12 | XMS_ITS | Encounter Summary ---
Author Organization [facility] Address [address] [place] [address] Care Team Providers Care Hand Cloth Folder Name Role Phone Unavailable Primary Care Provider Unavailabl e Encounter Details Date Type Department Care Team (Late st Contact Info) Description 09/17/2020 Lab Requisition [facility] DermPath Lab [address] [facility], [place] [address] Erickson White MD [address] [place] [address] Social History Tobacco Use Types [...] Comments DERMATOPATHOLOGY Routine 09/16/2020 12:0 0 AM FRONT DESK documented in this encounter Results * DERMATOPATHOLOGY (09/16/2020 12:00 AM FRONT DESK) Case Report Dermatopathology Report Case: [id number] Authorizing Provider: Erickson White MD Collected: 09/16/2020 12:00 AM Ordering Location: [facility] DermPath Lab Received: 09/17/2020 12:30 PM Pathologist: Tina Farrell MD Specimen: Skin, right mid paraspinal back 4:59 PM FRONT DESK DERMATOPATHOLOGY LABORATORY Final Diagnosis Specimen A. SKIN, right mid paraspinal back: LICHEN PLANUS-LIKE KERATOSIS (BENIGN LICHENOID KERATOSIS) (L82.1) EPIDERMAL NECROSIS SUGGESTIVE OF EXCORIATION (L98.499) 4:59 PM [facility] DERMATOPATHOLOGY LABORATORY Clinical History R/O SCC, Betts's. 4:59 PM [facility] DERMATOPATHOLOGY LABORATORY Gross Description Specimen A: Received is one formalin filled container labeled with the patient's name and designated right mid paraspinal back. The specimen consists of a shave biopsy measuring [id number]. Jar 0. 4:59 PM [facility] DERMATOPATHOLOGY LABORATORY Microscopic Description Specimen A. SKIN, right mid paraspinal back: The epidermis is mildly acanthotic. There is a lichenoid infiltrate with vacuolar changes of basilar keratinocytes and scattered necrotic keratinocytes. The epidermis is focally necrotic and covered with a scale-crust. There is fibrin at the base. 4:59 PM FRONT DESK DERMATOPATHOLOGY LABORATORY Disclaimer An external and internal positive and negative controls are appropriate for the histochemical, immunohistochemical and immunofluorescence stain(s) in this case (if any), except where stated explicitly. The performance characteristics of the stain(s) cited in this report were developed and its performance characteristic determined by the Dermatopathology Laboratory at [facility], directed by Dr. Paulina Farrell. These tests need not be, and therefore are not, approved by the [place] Food and Drug Administration. The tests are used for clinical purposes. Billing Codes Specimen Charges Stain Charges 02512 1 4:59 PM FRONT DESK DERMATOPATHOLOGY LABORATORY Embedded Images 4:59 PM FRONT DESK DERMATOPATHOLOGY LABORATORY Pathology/Cytolog y TISSUE SPECIMEN FROM SKIN / Unknown 09/16/2020 09/17/2020 12:30 PM FRONT DESK Erickson White MD LAB - PATHOLOGY/CYTO LOGY ORDERABLES DERMATOPATHOLOGY LABORATORY [facility] - Department of Dermatology [address] [place] [address], [facility] [phone] documented in this encounter Visit Diagnoses Not on filedocumented in this encounter
--- OUTSIDE RECORDS SUMMARY | 2024-11-28 09:12 | XMS_ITS | Encounter Summary ---
Author Organization [facility] Address [address] [place] [address] Care Team Providers Care Departmental Secretary Name Role Phone Dyllan Pulido MD Unavailable Jasper Rubalcava MD Unavailable [phone] Melissa Kunz NP Primary Care Provider [phone] Desiree Horvath MD Primary Care Provider + Encounter Details Date Type Department Care Team (Late st Contact Info) Description 12/09/2021 MyChart Message Enc [facility] Medical Group Family Medicine - [place] [address] [facility] [address] [place], [place] [phone] Melissa Kunz NP [address] [place], [place] [address] prescription Social History Tobacco Use Types Packs/Day [...] Sex Assigned at Female 09/04/2024 10:05 AM CULTURE MEDIA LABORATORY ASSISTANT Legal Sex Female 9:10 AM CDT Gender Identity Female 08/28/2021 3:59 PM CULTURE MEDIA LABORATORY ASSISTANT Sexual Orientation Straight 08/28/2021 3: 59 PM CULTURE MEDIA LABORATORY ASSISTANT COVID-19 Exposure Response Date Recorded In the last 10 days, have yo u been in contact with someone who was confirmed or suspected to have Coronavirus/COVID-19? No / Unsure 11/23/2021 2:14 PM CDT documented as of this encounter Plan of Treatment Upcoming Encounters Date Type Department Care Team (Late st Contact Info) Description 11/28/2024 10:15 AM CDT Office Visit [facility] Physical Therapy [address] [place] [address] Desiree Horvath MD [address] [facility] [address] [place] [address] Luh Barry, PT 1 [place] [address] 12/03/2024 10:10 AM CDT Office Visit [facility] Medical Group Family Medicine - [place] [address] [place] [address] Desiree Horvath MD [address] [facility] [address] [place] [address] 12/10/2024 10:40 AM CDT Hospital Encounter [facility] Interventional [place] [address] [id number] Sherley Klein MD [facility] [address] [facility] [place] [address] 12/10/2024 10:40 AM CDT - 12/10/2024 11:[address] [facility] [place] [id number] Sherley Klein MD [facility] [address] [place] [address] INJECTION EPIDURAL TRANSFORAMINAL-L5- S1 01/15/2025 10:15 AM CDT Appointment [facility] CT [address] [facility] [place] [address] Winston Javed DO 3 [facility] [address] [place] [address] 01/21/2025 10:00 AM CDT Appointment [facility] [address] [place] [address] Kenyon Butt MD [facility] [place] [address] 02/20/2025 9:30 AM CDT Office Visit [facility] [address] [place] [address] Azra Geronimo, FLY WINDER-C [facility]. [address] [place] [address] 03/05/2025 8:20 AM CDT Office Visit [facility] Medical Group Multispecialty Care - [address] [place] [address] Winston Javed DO 3 [facility] [address] [place] [address] Scheduled Procedures Name Priority Associated Diagnoses Date/Ti [...] documented as of this encounter Care Teams Departmental Secretary Relationship Specialty Start Date End Date Melissa Kunz, YSABEL [address] [place] [address] PCP - General NURSE PRACTITIONER 04/21/21 03/17/24 Desiree Horvath MD [address] [place] [address] PCP - General 03/18/24 Dyllan Pulido MD CARDIOVASCULAR DISEASE 11/18/20 Jasper Rubalcava MD GASTROENTEROLOGY 11/18/20 documented as of this encounter
--- OUTSIDE RECORDS SUMMARY | 2024-11-28 09:12 | XMS_ITS | Encounter Summary ---
Author Organization [facility] Address [address] [place] [address] Care Team Providers Care Boiler Inspector Name Role Phone Swapnil Lux MD Primary [facility] Dyllan Mishra MD Unavailable Jasper Rubalcava MD Unavailable [phone] Melissa Kunz NP Primary Care Provider [phone] Desiree Horvath MD Primary Care Provider + Encounter Details Date Type Department Care Team (Late st Contact Info) Description 06/03/2020 [employer] Message Enc [facility] Medical Group Family Medicine - [place] [address] [place] [address] Swapnil Lux MD RE: RE: Follow Up/Update Social History Tobacco Use Types Packs/Day Years Used Date Smoking Tobacco: Former Cigarettes 1 40 0 04/22/1979 - 04/22/2019 Smokeless Tobacco: Never Alcohol Use Standard Drinks/Week Comments Never 0 (1 standard drink = 0.6 oz pur e alcohol) Comments Unknown Sex and Gender Information Value Date Recorded Sex Assigned at Female 09/04/2024 10:05 AM BELT CHANGER Legal Sex Female 9:10 AM CDT Gender Identity Female 08/28/2021 3:59 PM BELT CHANGER Sexual Orientation Straight 08/28/2021 3: 59 PM BELT CHANGER COVID-19 Exposure Response Date Recorded In the last month, have you been in contact with someone who was confirmed or suspected to have Coronavirus / COVID-19? No / Unsure 06/06/2020 10:54 AM CDT documented as of this encounter Plan of Treatment Upcoming Encounters Date Type Department Care Team (Late st Contact Info) Description 11/28/2024 10:15 AM CDT Office Visit [facility] Physical Therapy [address] [place] [address] Desiree Horvath MD [address] [place] [address] Luh Barry, PT 1 [place] [address] 12/03/2024 10:10 AM CDT Office Visit [facility] Medical Group Family Medicine [facility] [address] [place] [address] Desiree Horvath MD [address] [place] [address] 12/10/2024 10:40 AM CDT Hospital Encounter [facility] Interventional [place] [address] [phone] Sherley Klein MD [facility] [address] [place] [address] 12/10/2024 10:40 AM CDT - 12/10/2024 11:00 AM CDT Surgery [facility] Interventional [place] [address] [id number] Sherley Klein MD [facility] [address] [place] [address] INJECTION EPIDURAL TRANSFORAMINAL-L5- S1 01/15/2025 10:[address] [facility] CT [address] [place] [address] Winston Javed DO [address] [facility] [address] [place] [address] 01/21/2025 10:[address] [facility] Ultrasound [address] [place] [address] Kenyon Butt MD [facility] [place] [address] 02/20/2025 9:30 AM CDT [facility] [address] [place] [phone] Azra Geronimo LINING BRUSHER-C [facility] [place] [address] 03/05/2025 8:20 AM CDT Office Visit [facility] Medical Group Multispecialty Care - [facility] [address] [facility] [address] [place] [address] Winston Javed DO [address] [facility] [address] [place] [address] Scheduled Procedures Name Priority Associated Diagnoses Date/Ti me INJECTION EPIDURAL TRANSFORAMINAL Lumbar radiculopathy 12/10/2024 10:40 AM CDT documented as of this encounter Visit Diagnoses Not on filedocumented in this encounter Additional Health Concerns Infection Onset Date Last Indicated Resolved Time COVID-19 Rule Out 09/03/2021 09/03/2021 09/03/2021 2:09 PM BELT CHANGER COVID-19 Rule Out 04/12/2023 04/12/202304/1204/12/2023 1:26 PM CDT COVID-19 Confirmed 04/12/2023 04/12/2023 12:32 AM CDT documented as of this encounter Care Teams Boiler Inspector Relationship Specialty Start Date End Date Swapnil Lux MD PCP - General FAMILY MEDICINE SPORTS MEDICINE 03/31/20 04/20/21 Melissa Kunz NP [address] [place] [address] PCP - General NURSE PRACTITIONER 04/21/21 03/17/24 Desiree Horvath MD [address] [place] [address] PCP - General 03/18/24 Dyllan Pulido MD CARDIOVASCULAR DISEASE 11/18/20 Jasper Rubalcava MD GASTROENTEROLOGY 11/18/20 documented as of this encounter
--- OUTSIDE RECORDS SUMMARY | 2024-11-28 09:12 | XMS_ITS | Encounter Summary ---
Author Organization [facility] Address [address] [place] [address] Care Team Providers Care Air Conditioning Engineer Name Role Phone Dyllan Pulido MD Unavailable Jasper Rubalcava MD Unavailable Melissa Kunz NP Primary Care Provider [phone] Desiree Horvath MD Primary Care Provider + Encounter Details Date Type Department Care Team (Late st Contact Info) Description 09/16/2023 MyChart Message Enc [facility] Medical Group Family Medicine - [place] [address] [place] [address] [facility] Provider Appointment needed Social History Tobacco Use [...] Sex Assigned at Female 09/04/2024 10:05 AM INTEGRATED PEST MANAGEMENT TECHNICIAN Legal Sex Female 9:10 AM CDT Gender Identity Female 08/28/2021 3:59 PM INTEGRATED PEST MANAGEMENT TECHNICIAN Sexual Orientation Straight 08/28/2021 3: 59 PM INTEGRATED PEST MANAGEMENT TECHNICIAN documented as of this encounter Plan of Treatment Upcoming Encounters Date Type Department Care Team (Late st Contact Info) Description 11/28/2024 10:15 AM CDT Office Visit [facility] [address] [place] [address] Desiree Horvath MD [address] [place] [address] 760714 Luh Barry, PT 1 [place] [address] 12/03/2024 10:10 AM CDT Office Visit [facility] Medical Group Family Medicine - [place] [address] [place] [address] 171564 Desiree Horvath MD [address] [place] [address] 12/10/2024 10:40 AM CDT Hospital Encounter [facility] [place] [address] [id number] Sherley Klein MD Three [address] [address] 12/10/2024 10:40 AM CDT - 12/10/2024 11:00 AM CDT Surgery [facility] [place] [address] [phone] Sherley Klein MD Three [address] [address] INJECTION EPIDURAL TRANSFORAMINAL-L5- S1 01/15/2025 10:15 AM CDT Appointment [facility] [address] [place] [address] Winston Javed, 3 [facility] [address] [place] [address] 01/21/2025 10:00 AM CDT Appointment [facility] Ultrasound [address] [place] [address] Kenyon Butt MD [facility] [address] [place] [address] 02/20/2025 9:30 AM CDT [facility] [address] [place] [phone] Azra Geronimo, SHAREPOINT APPLICATION ARCHITECT-C Three [facility]. [address] [place] [address] 03/05/2025 8:20 AM CDT Office Visit [facility] Medical Group Multispecialty Care - [facility] 3 [facility] [address] [place] [address] Winston Javed DO 3 [facility] [address] [place] [address] Scheduled Procedures Name Priority Associated Diagnoses Date/Ti me INJECTION EPIDURAL TRANSFORAMINAL Lumbar radiculopathy 12/10/2024 10:40 AM CDT documented as of this encounter Visit Diagnoses Not on filedocumented in this encounter Additional Health Concerns Assessment Noted Time PHQ-9 Depression Total Score: 3 11/19/19 10:26 AM CDT documented as of this encounter Care Teams Air Conditioning Engineer Relationship Specialty Start Date End Date Melissa Kunz NP [address] [place] [address] PCP - General NURSE PRACTITIONER 04/21/21 03/17/24 Desiree Horvath MD [address] [place] [address] PCP - General 03/18/24 Dyllan Pulido MD CARDIOVASCULAR DISEASE 11/18/20 Jasper Rubalcava MD GASTROENTEROLOGY 11/18/20 documented as of this encounter
--- OUTSIDE RECORDS SUMMARY | 2024-11-28 09:12 | XMS_ITS | Referral Summary ---
Author Organization [facility] [address] Address [address] [place] [address] Care Team Providers Care Manager Title Name Role Phone Melissa Kunz MD Primary Care Provider [phone] Allergies Active Allergy Reactions Criticality Noted Date Comments Neomycin Rash Medium 12/28/2018 Gjlrijww-Abomszgbb-Mbouknesru Rash Medium 2019 Hvmqfeip-Iscbgkehgf-Oqiktjyjw Rash Medium 2018 Penicillins Nausea & Vomiting [...] on file Legal Sex Female 12:04 AM INFORMATICS MANAGER Gender Identity Female 11/27/2019 3:36 PM CDT [...] file Insurance MEDICARE FOR LIFE Care Teams Manager Title Relationship Specialty Start Date End Date Melissa Kunz MD PCP - General Nurse Practitioner 06/03/21
--- OUTSIDE RECORDS SUMMARY | 2024-11-28 09:12 | XMS_ITS | Encounter Summary ---
Author Organization [facility] Address [address] [place] [address] Care Team Providers Care Gas Truck Driver Name Role Phone Unavailable Primary Care Provider Unavailabl e Encounter Details Date Type Department Care Team (Late st Contact Info) Description 06/21/2019 Lab Requisition [facility] [address] [facility], [place] [address] Erickson White MD [address] [place] [address] Social History Tobacco Use Types Packs/Day Years [...] 12:00 AM CDT) Case Report Dermatopathology Report Case: [id number] Authorizing Provider: Erickson White MD Collected: 06/20/2019 12:00 AM Ordering Location: [facility] Received: 06/21/2019 12:46 PM Pathologist: Colleen Zayas MD Specimens: A) - Skin, right upper inner thigh B) - Skin, right lower abdomen right of midline C) - Skin, right med post mid thigh 10:39 PM POSTAL SERVICE WINDOW CLERK DERMATOPATHOLOGY LABORATORY Final Diagnosis Specimen A. SKIN, right upper inner thigh: SUPERFICIAL PERIVASCULAR LYMPHOCYTIC INFILTRATE WITH EOSINOPHILS (L27.0) (see microscopic description and comment) Specimen B. SKIN, right lower abdomen right of midline: ACTINIC KERATOSIS, ACANTHOLYTIC AND LICHENOID TYPES, TRAUMATIZED (L57.0) Specimen C. SKIN, right med post mid thigh: BENIGN VERRUCOUS KERATOSIS, INFLAMED (L82.1) (see microscopic description) 10:39 PM [facility] DERMATOPATHOLOGY LABORATORY Clinical History A: R/O Betts's vs dermatitis. B: R/O BCC. C: R/O Betts's vs dermatitis. 10:39 PM [facility] DERMATOPATHOLOGY LABORATORY Gross Description Specimen A: Received is one formalin filled container labeled with the patient's name and designated right upper inner thigh. The specimen consists of a shave biopsy measuring [id number]. Jar 0. Specimen B: Received is one formalin filled container labeled with the patient's name and designated right lower abdomen right of midline. The specimen consists of a shave biopsy measuring [id number]. Jar 0. Specimen C: Received is one formalin filled container labeled with the patient's name and designated right med post mid thigh. The specimen consists of a shave biopsy measuring [id number]. Jar 0. 10:39 PM [facility] DERMATOPATHOLOGY LABORATORY Microscopic Description Specimen [...] sections were obtained and reviewed. 10:39 PM [facility] DERMATOPATHOLOGY LABORATORY AP Comment Specimen A. SKIN, right upper inner thigh: These histological findings are often seen in hypersensitivity reactions. 10:39 PM [facility] DERMATOPATHOLOGY LABORATORY Disclaimer An external and internal positive and negative controls are appropriate for the histochemical, immunohistochemical and immunofluorescence stain(s) in this case (if any), except where stated explicitly. The performance characteristics of the stain(s) cited in this report were developed and its performance characteristic determined by the Dermatopathology Laboratory at [facility], directed by Dr. Paulina Farrell. These tests need not be, and therefore are not, approved by the [place] Food and Drug Administration. The tests are used for clinical purposes. Billing Codes Specimen Charges Stain Charges 22377 [id number] 82570 1 1 1 63846 1 10:39 PM [facility] DERMATOPATHOLOGY LABORATORY Embedded Images 10:39 PM [facility] DERMATOPATHOLOGY LABORATORY Pathology/Cytology TISSUE SPECIMEN FROM SKIN / Unknown 06/20/2019 06/21/2019 12:46 PM CDT Miscellaneous samples (specimen) TISSUE SPECIMEN FROM SKIN / Unknown 06/20/2019 06/21/2019 12:46 PM CDT Miscellaneous samples (specimen) TISSUE SPECIMEN FROM SKIN / Unknown 06/20/2019 06/21/2019 12:46 PM CDT Erickson White MD LAB - PATHOLOGY/CYTO LOGY ORDERABLES DERMATOPATHOLOGY LABORATORY [facility] - Department of Dermatology [address] [place] [address] 5th Floor Lab [address] [phone] documented in this encounter Visit Diagnoses Not on filedocumented in this encounter
--- OUTSIDE RECORDS SUMMARY | 2024-11-28 09:12 | XMS_ITS | Encounter Summary ---
Author Organization [facility] Address [address] [place] [address] Care Team Providers Care Calculating Machine Mechanic Name Role Phone Dyllan Pulido MD Unavailable Jasper Rubalcava MD Unavailable [phone] Melissa Kunz NP Primary Care Provider [phone] Desiree Horvath MD Primary Care Provider + Encounter Details Date Type Department Care Team (Late st Contact Info) Description 12/11/2023 MyChart Message Enc [facility] Medical Group Family Medicine - [place] [address] [facility] [address] [place], [place] [phone] Melissa Kunz NP [address] [place], [place] [address] Pills for migraine Social History Tobacco Use [...] Sex Assigned at Female 09/04/2024 10:05 AM MARRIAGE AND FAMILY SOCIAL WORKER Legal Sex Female 9:10 AM CDT Gender Identity Female 08/28/2021 3:59 PM MARRIAGE AND FAMILY SOCIAL WORKER Sexual Orientation Straight 08/28/2021 3: 59 PM MARRIAGE AND FAMILY SOCIAL WORKER documented as of this encounter Progress Notes [...] order. I sent in a refill at [facility] and advised the patient to call me [...] Description 11/28/2024 10:15 AM CDT Office Visit [facility] Physical Therapy [address] [place] [address] Desiree Horvath MD [address] [place] [address] Luh Barry, PT [address] [place] [address] 12/03/2024 10:10 AM CDT Office Visit [facility] Medical Group Family Medicine - [place] [address] [place] [address] Desiree Horvath MD [address] [place], [place] [address] 12/10/2024 10:40 AM CDT Hospital Encounter [facility] Interventional [place] [address] [id number] Sherley Klein MD Three [facility] [address] [facility] [place] [address] 12/10/2024 10:40 AM CDT - 12/10/2024 11:00 AM CDT Surgery [facility] Interventional [facility] [place] [address] [phone] Sherley Klein MD Three [facility] [address] [place] [address] INJECTION EPIDURAL TRANSFORAMINAL-L5- S1 01/15/2025 10:15 AM CDT Appointment [facility] [address] [place] [address] Winston Javed DO 3 [facility] [address] [place] [address] 01/21/2025 10:00 AM CDT Appointment [facility] Ultrasound [address] [place] [address] Kenyon Butt MD Three [facility]. [address] [place] [address] 02/20/2025 9:30 AM CDT [facility] [address] [place] [address] Azra Geronimo, DIRECTOR CREDIT RISK-C Three [facility]. [address] [place] [address] 03/05/2025 8:20 AM CDT Office Visit [facility] Medical Group [facility]pecialty Care - [facility] 3 [facility] [address] [place] [address] Winston Javed DO 3 [facility] [address] [place] [address] Scheduled Procedures Name Priority Associated Diagnoses Date/Ti me INJECTION EPIDURAL TRANSFORAMINAL Lumbar radiculopathy 12/10/2024 10:40 AM CDT documented as of this encounter Visit Diagnoses Not on filedocumented in this encounter Additional Health Concerns Assessment Noted Time PHQ-9 Depression Total Score: 3 11/19/19 10:26 AM CDT documented as of this encounter Care Teams Calculating Machine Mechanic Relationship Specialty Start Date End Date Melissa Kunz NP [address] [place] [address] PCP - General NURSE PRACTITIONER 04/21/21 03/17/24 Desiree Horvath MD [address] [place] [address] PCP - General 03/18/24 Dyllan Pulido MD CARDIOVASCULAR DISEASE 11/18/20 Jasper Rubalcava MD GASTROENTEROLOGY 11/18/20 documented as of this encounter
--- OUTSIDE RECORDS SUMMARY | 2024-11-28 09:12 | XMS_ITS | Encounter Summary ---
Author Organization [facility] Address [address] [place] [address] Care Team Providers Care Drilling Contractor Name Role Phone Dyllan Pulido MD Unavailable Jasper Rubalcava MD Unavailable [phone] Melissa Kunz NP Primary Care Provider [phone] Desiree Horvath MD Primary Care Provider + Encounter Details Date Type Department Care Team (Late st Contact Info) Description 05/14/2021 [employer] Message Enc [facility] Medical Group Family Medicine - [place] [address] [place] [address] [facility] Provider results Social History Tobacco Use Types [...] Sex Assigned at Female 09/04/2024 10:05 AM INSPECTOR OUTSIDE PRODUCTION Legal Sex Female 9:10 AM CDT Gender Identity Female 08/28/2021 3:59 PM INSPECTOR OUTSIDE PRODUCTION Sexual Orientation Straight 08/28/2021 3: 59 PM INSPECTOR OUTSIDE PRODUCTION COVID-19 Exposure Response Date Recorded In the last month, have you been in contact with someone who was confirmed or suspected to have Coronavirus / COVID-19? No / Unsure 04/21/2021 9:37 AM CDT documented as of this encounter Plan of Treatment Upcoming Encounters Date Type Department Care Team (Late st Contact Info) Description 11/28/2024 10:15 AM CDT Office Visit [facility] Physical Therapy [address] [place] [address] Desiree Horvath MD [address] [place] [address] Luh Barry, PT 1 [place] [address] 12/03/2024 10:10 AM CDT Office Visit [facility] Medical Group Family Medicine - [place] [address] [place] [address] Desiree Horvath MD [address] [facility] [address] [place] [phone] 12/10/2024 10:40 AM CDT Hospital Encounter [facility] Interventional [place] [address] [id number] Sherley Klein MD Three [facility] [address] [place] [address] 12/10/2024 10:40 AM CDT - 12/10/2024 11:[address] [facility] Interventional [place] [address] [id number] Sherley Klein MD Three [facility] [address] [place] [address] INJECTION EPIDURAL TRANSFORAMINAL-L5- S1 01/15/2025 10:[address] [facility] [address] [facility] [place] [address] Winston Javed DO 3 [facility] [address] [place] [address] 01/21/2025 10:00 AM CDT Appointment [facility] Ultrasound [address] [place] [address] Kenyon Butt MD Three [facility]. [address] [place] [address] 02/20/2025 9:30 AM CDT Office [facility] [address] [place] [address] Azra Geronimo, SURVEYOR GEODETIC-C Three [facility]. [address] [place] [address] 03/05/2025 8:20 AM CDT Office Visit [facility] Medical Group Multispecialty Care - [facility] 3 [facility] [address] [place] [address] Winston Javed DO 3 [facility] [address] [place] [address] Scheduled Procedures Name Priority Associated Diagnoses Date/Ti me INJECTION EPIDURAL TRANSFORAMINAL Lumbar radiculopathy 12/10/2024 10:40 AM CDT documented as of this encounter Visit Diagnoses Not on filedocumented in this encounter Additional Health Concerns Infection Onset Date Last Indicated Resolved Time COVID-19 Rule Out 09/03/2021 09/03/2021 09/03/2021 2:09 PM INSPECTOR OUTSIDE PRODUCTION COVID-19 Rule Out 04/12/2023 04/12/2023 04/12/2023 1:26 PM CDT COVID-19 Confirmed 04/12/2023 04/12/2023 12:32 AM CDT Assessment Noted Time PHQ-9 Depression Total Score: 3 11/19/19 21 10:26 AM CDT documented as of this encounter Care Teams Drilling Contractor Relationship Specialty Start Date End Date Melissa Kunz NP [address] [place] [address] PCP - General NURSE PRACTITIONER 04/21/21 03/17/24 Desiree Horvath MD [address] [place] [address] PCP - General 03/18/24 Dyllan Pulido MD CARDIOVASCULAR DISEASE 11/18/20 Jasper Rubalcava MD GASTROENTEROLOGY 11/18/20 documented as of this encounter
--- OUTSIDE RECORDS SUMMARY | 2024-11-28 09:12 | XMS_ITS | Encounter Summary ---
Author Organization [facility] Address [address] [place] [address] Care Team Providers Care Reeling Machine Setup Operator Name Role Phone Dyllan Pulido MD Unavailable Jasper Rubalcava MD Unavailable [phone] Desiree Del Rio MD Primary Care Provider + Encounter Details Date Type Department Care Team (Late st Contact Info) Description 03/21/2024 FastCallt Message Enc [facility] Medical Group Family Medicine - Street [address] [place] [address] Desiree Del Rio MD [address] [place], [place] [phone] No Poop Social History Tobacco Use Types Packs/Day Years Used Date Smoking Tobacco: Former Cigarettes - 1967 Passive Smoke Exposure: Past Smokeless Tobacco: Never Comments:former smoker Alcohol Use Standard Drinks/Week Comments Yes 0 (1 standard drink = 0.6 oz pur e alcohol) occassional beer with dinner PHQ-2 Answer Date Recorded Patient Health Questionnaire-2 Score 0 02/17/2024 Comments No Sex and Gender Information Value Date Recorded Sex Assigned at Female 09/04/2024 10:05 AM TELEMARKETING AGENT Legal Sex Female 9:10 AM CDT Gender Identity Female 08/28/2021 3:59 PM TELEMARKETING AGENT Sexual Orientation Straight 08/28/2021 3: 59 PM TELEMARKETING AGENT documented as of this encounter Progress Notes * Eli Hernandez MA - 03/21/2024 1:28 PM CDT Patient informed. She stated she is not really in any pain at the moment. She will go have the xraydone at [facility] in [place] and see what that shows. * Desiree [...] Description 11/28/2024 10:15 AM CDT Office Visit [facility] Physical Therapy [address] [place] [address] Desiree Del Rio MD [address] [place] [phone] Luh Barry, PT 1 [place] [address] 12/03/2024 10:10 AM CDT Office Visit [facility] Medical Group Family Medicine - Street [address] [place] [phone] Desiree Del Rio MD [address] [place] [address] 12/10/2024 10:40 AM CDT Hospital Encounter [facility] Interventional Pain Management Center [address] [facility] [place] [address] [id number] Sherley Klein MD Three [facility] [address] [place] [address] 12/10/2024 10:40 AM CDT - 12/10/2024 11:00 AM CDT Surgery [facility] Interventional [place] [address] [phone] Sherley Klein MD Three [facility] [address] [place] [address] INJECTION EPIDURAL TRANSFORAMINAL-L5- S1 01/15/2025 10:15 AM CDT Appointment [facility] CT [address] [place] [address] Winston Javed DO 3 [facility] [address] [place] [address] 01/21/2025 10:00 AM CDT Appointment [facility] Ultrasound [address] [place] [address] Kenyon Butt MD Three [facility]. [address] [place] [address] 02/20/2025 9:30 AM CDT [facility] [address] [place] [address] Azra Geronimo, RIBBING MACHINE OPERATOR-C Three [facility]. [address] [place] [address] 03/05/2025 8:20 AM CDT Office Visit [facility] Medical Group Multispecialty Care - [facility] [address] [facility] [address] [place] [address] Winston Javed DO [address] [facility] [address] [place] [address] Scheduled Procedures Name Priority Associated Diagnoses Date/Ti me INJECTION EPIDURAL TRANSFORAMINAL Lumbar radiculopathy 12/10/2024 10:40 AM CDT documented as of this encounter Results * [...] view the abdomen. Comparison studies: None. Findings: On the upright [...] constipation Generalized abdominal pain Abdominal pain, generalized Lumbar radiculopathy Thoracic or lumbosacral neuritis or radiculitis, unspecified documented in this encounter Additional Health Concerns Assessment Noted Time PHQ-9 Depression Total Score: 3 11/19/19 21 10:26 AM CDT documented as of this encounter Care Teams Reeling Machine Setup Operator Relationship Specialty Start Date End Date Desiree Del Rio MD [address] [address] PCP - General 03/18/24 Dyllan Pulido MD CARDIOVASCULAR DISEASE 11/18/20 Jasper Rubalcava MD GASTROENTEROLOGY 11/18/20 documented as of this encounter
--- OUTSIDE RECORDS SUMMARY | 2024-11-28 09:12 | XMS_ITS | Clinical Summary ---
Author Organization [facility] Address [address] [address] Care Team Providers Care Sample Collector Name Role Phone Unavailable Primary Care Provider Unavailabl e Source Comments [facility],non-owned Affiliates and Associated Physician Practices is amultiple site organization consisting of ambulatory clinics and hospital sitesin [place], [place] and [place]. This disclosure is being madepursuant to the Care Everywhere program and may not contain all information available regarding this patient. Last updated 18.[facility] Social History Tobacco Use Types Packs/Day Years [...] LIPID TESTING 1950 MAMMOGRAM 1950 MEDICARE AWV 12 MONTHS 1950 HEPATITIS C SCREENING 07/24/1967 DTAP/TDAP/TD VACCINES (1 - Tdap) 1968 PNEUMOCOCCAL VACCINE 50+ (1 of 1 - PCV) 1999 ZOSTER VACCINE (1 of 2) 1999 COVID-19 VACCINE ( - 2023-2 5 season) 2024 Respiratory Syncytial Virus (RSV) Vaccine Pt: or over 60 yrs (1 - 1-dose 75+ series) 2024 DEPRESSION SCREENING 08/22/2024 INFLUENZA VACCINE (Season Ended) 2025 HEPATITIS B VACCINE Aged Out No longe r eligible based on patient's age to complete this topic HIB VACCINE Aged Out No longer eligi ble based on patient's age to complete this topic HPV VACCINE Aged Out No longer eligi ble based on patient's age to complete this topic MENINGOCOCCAL (Group B) VACC INE SHARED DECISION-MAKING Aged Out No longer eligibl e based on patient's age to complete this topic MENINGOCOCCAL GROUPS A/C/Y/W VACCINE Aged Out No longer eligible b ased on patient's age to complete this topic
--- OUTSIDE RECORDS SUMMARY | 2024-11-28 09:12 | XMS_ITS | Encounter Summary ---
Author Organization [facility] Address [address] [place] [address] Care Team Providers Care Sales Coach Name Role Phone Dyllan Pulido MD Unavailable Jasper Rubalcava MD Unavailable [phone] Melissa Kuzn NP Primary Care Provider [phone] Desiree Horvath MD Primary Care Provider + Encounter Details Date Type Department Care Team (Late st Contact Info) Description 10/31/2023 MyChart Message Enc [facility] Family Medicine - [place] [address] [place] [address] [facility] Provider appointment needed Social History [...] Sex Assigned at Female 09/04/2024 10:05 AM CUSTOMER SERVICE TRAINER Legal Sex Female 9:10 AM CDT Gender Identity Female 08/28/2021 3:59 PM CUSTOMER SERVICE TRAINER Sexual Orientation Straight 08/28/2021 3: 59 PM CUSTOMER SERVICE TRAINER documented as of this encounter Plan of Treatment Upcoming Encounters Date Type Department Care Team (Late st Contact Info) Description 11/28/2024 10:15 AM CDT Office Visit [facility] Physical Therapy [address] [place] [address] Desiree Horvath MD [address] [place] [address] [id number] Luh Barry, PT 1 [place] [address] 12/03/2024 10:10 AM CDT Office Visit [facility] Family Medicine - [place] [address] [place] [phone] Desiree Horvath MD [address] [place] [address] [phone] 12/10/2024 10:40 AM CDT Hospital Encounter [facility] [place] [address] [id number] Sherley Klein MD Three [address] [address] 12/10/2024 10:40 AM CDT - 12/10/2024 11:00 AM CDT Surgery [facility] [place] [address] [phone] Sherley Klein MD Three [address] [address] INJECTION EPIDURAL TRANSFORAMINAL-L5- S1 01/15/2025 10:15 AM CDT Appointment [facility] [address] [place] [address] Winston Javed, [address] [facility] [address] [place] [address] 01/21/2025 10:00 AM CDT Appointment [facility] Ultrasound [address] [place] [address] Kenyon Butt MD Three [facility] [address] [place] [address] 02/20/2025 9:30 AM CDT [facility] [address] [place] [phone] Azra Geronimo, HVAC TECH-C Three [facility]. [address] [place] [address] 03/05/2025 8:20 AM CDT Office Visit [facility] Multispecialty Care - [facility] [address] [facility] [address] [place] [address] Winston Javed DO 3 [facility] [address] [place] [address] Scheduled Procedures Name Priority Associated Diagnoses Date/Ti me INJECTION EPIDURAL TRANSFORAMINAL Lumbar radiculopathy 12/10/2024 10:40 AM CDT documented as of this encounter Visit Diagnoses Not on filedocumented in this encounter Additional Health Concerns Assessment Noted Time PHQ-9 Depression Total Score: 3 11/19/19 10:26 AM CDT documented as of this encounter Care Teams Sales Coach Relationship Specialty Start Date End Date Melissa Kunz NP [address] [place] [address] PCP - General NURSE PRACTITIONER 04/21/21 03/17/24 Desiree Horvath MD [address] [place] [address] PCP - General 03/18/24 Dyllan Pulido MD CARDIOVASCULAR DISEASE 11/18/20 Jasper Rubalcava MD GASTROENTEROLOGY 11/18/20 documented as of this encounter
--- OUTSIDE RECORDS SUMMARY | 2024-11-28 09:12 | XMS_ITS | Clinical Summary ---
Author Organization [facility] [address] Address [address] [place] [address] Care Team Providers Care Organic Lab Worker Name Role Phone Melissa Kunz MD Primary Care Provider [phone] Allergies Active Allergy Reactions Criticality Noted Date Comments Neomycin Rash Medium 12/28/2018 Fwugkgwv-Ilzamennb-Wuajenkunq Rash Medium 2019 Igejvqqd-Zuyvekpvwi-Etbelazha Rash Medium 2018 Penicillins Nausea & Vomiting [...] on file Legal Sex Female 12:04 AM [employer] Gender Identity Female 11/27/2019 3:36 PM CDT [...] Pneumococcal vaccine 65+ (2 of 2 - PPSV23) 06/25/2019 06/25/2018 Depression Screening 11/27/2020 11/28/2019 Fall Risk Assessment 11/27/2020 11/28/2019 Covid-19 Vaccine (3 - season) 2024, 10/15/2020 Influenza Vaccine (#1) 2024 , 06/11/2015, 06/07/2013 DTaP/Tdap/Td Vaccine (2 - Td or Tdap) 01/07/2031 Insurance MEDICARE [employer] Care Teams Organic Lab Worker Relationship Specialty Start Date End Date Melissa Kunz MD PCP - General Nurse Practitioner 06/03/21
--- OUTSIDE RECORDS SUMMARY | 2024-11-28 09:13 | XMS_ITS | Continuity of Care Document ---
Author Organization [facility] Address [address] [place] [address] [place] [address] Phone Care Team Providers Care Dope Firer Name Role Phone Eliazar Isabel Unavailable Unavailable Procedures Procedure Date Eye Exam, New Patient Ophthalmoscopy Advance Directives Directive Yes / No Effective Date File Name No Information Encounters Encounter Description Practice Location Reason(s) For Visit Diagnoses Date Provider Providers Copied on Encounter [facility], [address], [place], [place], [id number], [place] tel:[phone] [facility] No Information Oct-0 8-201 0 Chalo Perea. [address] [place], [address], [place]. tel:[phone] Referring Provider: Betrha Petreson OD, [address] [place], [address]. tel:[phone] Family History Family Member Type Diagnosis Age [...]
--- OUTSIDE RECORDS SUMMARY | 2024-11-28 09:13 | XMS_ITS | Encounter Summary ---
Author Organization [facility] Address [address] [place] [address] Care Team Providers Care Director Of Food And Beverage Services Name Role Phone Dyllan Pulido MD Unavailable Jasper Rubalcava MD Unavailable [phone] Desiree Horvath MD Primary Care Provider + Reason for Visit * Reason Onset Date Comments Pre-visit Gap Closure 11/27/2024 Encounter Details Date Type Department Care Team (Late st Contact Info) Description 11/27/2024 Patient Outreach [facility] Family Medicine - [place] [address] [place] [address] [phone] Desiree Horvath MD [address] [facility] [address] [place] [address] [phone] Pre-visit Gap Closure Social History Tobacco Use Types Packs/Day Years [...] Sex Assigned at Female 09/04/2024 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 Legal Sex Female 9:10 AM CDT Gender Identity Female 08/28/2021 3:59 PM OFF TRACK BETTING MANAGER Sexual Orientation Straight 08/28/2021 3: 59 PM OFF TRACK BETTING MANAGER documented as of this encounter Progress Notes * Sherley Deluna - 11/27/2024 7:46 AM CDT Preventive Screenings: Breast Cancer Screening: N/A Notes: Colorectal Cancer Screening: Up to Date Notes: 03/13/2019 Diabetic Eye Exam: Up to Date Notes: 01/27/2023 Falls Risk Screening: Up to Date Notes: Tobacco Cessation: Up to Date Notes: Labs: BMP/CMP: Up to Date Notes: Hemoglobin A1c: Needs Follow Up Notes: Lipid: Needs Follow Up Notes: Urine Albumin-Creatinine Ratio: Needs Follow Up Notes: Immunizations: Pneumococcal: Up to Date Notes: Shingles: Up to Date Notes: documented in this encounter Plan of Treatment Upcoming Encounters Date Type Department Care Team (Late st Contact Info) Description 11/28/2024 10:15 AM CDT Office Visit [facility] Physical Therapy [address] [place] [address] Desiree Horvath MD [address] [facility] [address] [place] [address] [phone] Luh Barry, PT 1 [place] [address] 12/03/2024 10:10 AM CDT Office Visit [facility] Family Medicine - [place] [address] [place] [address] Desiree Horvath MD [address] [facility] [address] [place] [phone] 12/10/2024 10:40 AM CDT Hospital Encounter [facility] Inter[facility] [place] [address] [phone] Sherley Klein MD Three [facility] [address] [place] [address] 12/10/2024 10:40 AM CDT - 12/10/2024 11:00 AM CDT Surgery [facility] [address] [facility] [place] [address] [phone] Sherley Klein MD Three [facility] [address] [place] [address] INJECTION EPIDURAL TRANSFORAMINAL-L5- S1 01/15/2025 10:[address] [facility] CT [address] [facility] [address] [place] [address] Winston Javed DO [address] [facility] [address] [place] [address] 01/21/2025 10:00 AM CDT Appointment [facility] Ultrasound [address] [place] [address] Kenyon Butt MD Three [facility]. [address] [place] [address] 02/20/2025 9:30 AM CDT Office Visit [facility] [address] [place] [phone] Azra Geronimo NP-C Three [facility]. [address] [place] [address] 03/05/2025 8:20 AM CDT Office Visit [facility] Multispecialty Care - [facility] 3 [facility] [address] [place] [address] Winston Javed, DO 3 [facility] [address] [place] [address] Scheduled Procedures Name Priority Associated Diagnoses Date/Ti me INJECTION EPIDURAL TRANSFORAMINAL Lumbar radiculopathy 12/10/2024 10:40 AM CDT documented as of this encounter Visit Diagnoses Not on filedocumented in this encounter Additional Health Concerns Assessment Noted Time PHQ-9 Depression Total Score: 3 11/19/19 10:26 AM CDT documented as of this encounter Care Teams Director Of Food And Beverage Services Relationship Specialty Start Date End Date Desiree Horvath MD [address] [place] [address] PCP - General 03/18/24 Dyllan Pulido MD CARDIOVASCULAR DISEASE 11/18/20 Jasper Rubalcava MD GASTROENTEROLOGY 11/18/20 documented as of this encounter
== END 2024-11-28 08:42 | disposition home or self-care (01) ==
LOC: ANHIMG 08:44
PROVIDERS: PCP Student in an Organized Health Care Education/Training Program; Visit Provider Student in an Organized Health Care Education/Training Program
DX: Z12.31 Encounter for screening mammogram for malignant neoplasm of breast (principal)
CPT/HCPCS: 77063; 77067